=== PATIENT | female | born 1970 | race African-American/Black ===

== ENCOUNTER 2016-06-28 01:36 | Emergency (ER) | payer MEDICAID ==
[~2016-06-28] VITALS: Ht 157.5 cm; Wt 117.9 kg
[~2016-06-28 01:36] MED LIST: ALBUAER3 IN; ALLO100T PO; CARI-277 PO; CLOB0.05 TD; FLUT250M2 INH; FURO20TA3 PO; GABA300C8 PO; IBUP200C3 PO; INSUINJ IJ; INSUINJ37 SUBCUT; LOSA50TA6 PO; METF-316 PO; NOR10T PO; SIMV-13 PO; TEMA15CA91 GT; TIZA4CAP5 PO; TRIA25CA; [UNRECOGNIZED DRUG - CODE] SUBCUT
[2016-06-28 02:05] LABS: Basophils # (auto) 0.1 uL; Basophils % (auto) 0.9 % (0.0-2.0); Eosinophils # (auto) 0.3 uL; Eosinophils % (auto) 2.8 % (0.0-7.0); Hematocrit 45.3 % (36.0-46.0); Hemoglobin 14.6 g/dL (12.2-16.2); Lymphocytes # (auto) 3.5 uL; Mean Corpuscular Hemoglobin 29.6 pg (28.0-32.0); Mean Corpuscular Hgb Conc. 32.3 g/dL (32.0-36.0); Mean Corpuscular Volume 91.5 fL (80.0-100.0); Mean Platelet Volume 8.1 fL (7.4-10.4); Monocytes # (auto) 0.7 uL; Monocytes % (auto) 6.6 % (0.0-12.0); Neutrophils # (auto) 5.8 uL; Neutrophils % (auto) 55.7 % (37.0-80.0); Platelet Count (auto) 279 10^3/uL (140-450); Red Cell Distribution Width 12.6 % (11.6-16.0); White Blood Cell 10.4 10^3/uL (4.4-10.8)
[2016-06-28 02:37] LABS: Albumin 3.5 g/dL (3.4-5.0); BUN/Creatinine Ratio 14.5; Calcium 8.6 mg/dL (8.5-10.1); Potassium 3.7 mmol/L (3.5-5.1)
[2016-06-28 02:39] LABS: Bilirubin, Total 0.2 mg/dL (0.2-1.0); Total Protein 8.4 g/dL (6.4-8.2)
[2016-06-28] MEDS ORDERED: KETOROLAC TROMETH 30 MG/ML 1ML VIAL IV ONE (04:00)
[2016-06-28] MEDS ORDERED: NALBUPHINE HCL 10 MG/1ml INJECTION IV ONE (07:15)
[2016-06-28] MEDS ORDERED: METOCLOPRAMIDE HCL 5MG/ml INJ 2ml VIAL IV ONE (07:15)
[2016-06-28 11:11] VITALS: BP 110/57
== END 2016-06-28 11:11 | disposition home or self-care (01) ==
LOC: ER 01:39
DX: R51 Headache (principal); I10 Essential (primary) hypertension; J45.909 Unspecified asthma, uncomplicated; F20.9 Schizophrenia, unspecified; F17.210 Nicotine dependence, cigarettes, uncomplicated; M10.9 Gout, unspecified; E11.65 Type 2 diabetes mellitus with hyperglycemia; E11.21 Type 2 diabetes mellitus with diabetic nephropathy; E66.01 Morbid (severe) obesity due to excess calories; Z68.42 Body mass index [BMI] 45.0-49.9, adult
CPT/HCPCS: 36415; 70450; 80053; 83735; 84443; 85025; 96374; 96375; 99285; J1885; J2300; J2765

== ENCOUNTER 2016-07-14 10:26 | Emergency (ER) | payer MEDICAID ==
[~2016-07-14] VITALS: Ht 160 cm; Wt 121.6 kg
[2016-07-14 11:14] LABS: Basophils # (auto) 0 uL; Basophils % (auto) 0.3 % (0.0-2.0); Eosinophils # (auto) 0.2 uL; Eosinophils % (auto) 2.5 % (0.0-7.0); Hematocrit 42.6 % (36.0-46.0); Hemoglobin 14.2 g/dL (12.2-16.2); Lymphocytes # (auto) 2.1 uL; Lymphocytes % (auto) 26.7 % (10.0-50.0); Mean Corpuscular Hgb Conc. 33.3 g/dL (32.0-36.0); Mean Corpuscular Volume 90.1 fL (80.0-100.0); Mean Platelet Volume 7.8 fL (7.4-10.4); Monocytes # (auto) 0.6 uL; Monocytes % (auto) 7.6 % (0.0-12.0); Neutrophils # (auto) 4.9 uL; Neutrophils % (auto) 62.9 % (37.0-80.0); Platelet Count (auto) 295 10^3/uL (140-450); Red Cell Distribution Width 13.3 % (11.6-16.0); White Blood Cell 7.9 10^3/uL (4.4-10.8)
[2016-07-14 11:57] LABS: Albumin 3.7 g/dL (3.4-5.0); BUN/Creatinine Ratio 16.4; Bilirubin, Total 0.3 mg/dL (0.2-1.0); Calcium 8.9 mg/dL (8.5-10.1); Potassium 3.8 mmol/L (3.5-5.1); Total Protein 8.3 g/dL (6.4-8.2)
[2016-07-14] MEDS ORDERED: SODIUM CHLORIDE 0.9% 1,000 ML IV ONE (15:39)
[2016-07-14] MEDS ORDERED: InsuLIN REG 1unit/0.01ml Soln (100units/ml) IV ONE ×2 (15:45→16:15)
[2016-07-14] MEDS ORDERED: MECLIZINE HCL 25 MG TAB PO ONE (16:00)
[2016-07-14] MEDS ORDERED: NALBUPHINE HCL 10 MG/1ml INJECTION ONE (16:57)
[2016-07-14] MEDS ORDERED: ONDANSETRON HCL 4 MG/2 ML VIAL ONE (16:57)
[2016-07-14] MEDS ORDERED: NALBUPHINE HCL 10 MG/1ml INJECTION IV ONE (17:00)
[2016-07-14] MEDS ORDERED: ONDANSETRON HCL 4 MG/2 ML VIAL IV ONE (17:00)
[2016-07-14 20:02] VITALS: BP 122/77
== END 2016-07-14 20:25 | disposition home or self-care (01) ==
LOC: ER 10:26
DX: R51 Headache (principal); F41.9 Anxiety disorder, unspecified; J45.909 Unspecified asthma, uncomplicated; F32.9 Major depressive disorder, single episode, unspecified; E11.9 Type 2 diabetes mellitus without complications; M10.9 Gout, unspecified; I10 Essential (primary) hypertension; F17.210 Nicotine dependence, cigarettes, uncomplicated; F20.9 Schizophrenia, unspecified; Z98.890 Other specified postprocedural states; Z98.51 Tubal ligation status
CPT/HCPCS: 36415; 70450; 80053; 82962; 83735; 84484; 85025; 93005; 96361; 96374; 96375; 99285; J1815; J2300; J2405; J8597

== ENCOUNTER 2016-07-28 23:24 | Emergency (ER) | payer MEDICAID ==
[~2016-07-28] VITALS: Ht 157.5 cm; Wt 121.6 kg
[2016-07-29 00:44] LABS: Basophils # (auto) 0 uL; Basophils % (auto) 0.3 % (0.0-2.0); Eosinophils # (auto) 0.1 uL; Eosinophils % (auto) 1.9 % (0.0-7.0); Hematocrit 40.2 % (36.0-46.0); Hemoglobin 12.9 g/dL (12.2-16.2); Lymphocytes # (auto) 2.5 uL; Lymphocytes % (auto) 33.6 % (10.0-50.0); Mean Corpuscular Hemoglobin 29.1 pg (28.0-32.0); Mean Corpuscular Volume 91.1 fL (80.0-100.0); Mean Platelet Volume 8.4 fL (7.4-10.4); Monocytes # (auto) 0.5 uL; Monocytes % (auto) 7.1 % (0.0-12.0); Neutrophils # (auto) 4.2 uL; Neutrophils % (auto) 57.1 % (37.0-80.0); Platelet Count (auto) 284 10^3/uL (140-450); Red Cell Distribution Width 13.4 % (11.6-16.0); White Blood Cell 7.4 10^3/uL (4.4-10.8)
[2016-07-29 00:56] LABS: Urine Bilirubin Negative (Negative); Urine Blood Negative /uL (Negative); Urine Color Colorless (Yellow); Urine Ketone Negative (Negative); Urine Mucus FEW (None Seen); Urine Nitrite Negative (Negative); Urine RBC <1 /hpf (0 - 4); Urine Squamous Epithelial Cell FEW /hpf (<5); Urine Urobilinogen Normal (Negative); Urine pH 6.5 (5.0-8.0)
[2016-07-29 01:02] LABS: Urine Glucose 4+ mg/dL (Normal)
[2016-07-29 01:13] LABS: Albumin 3.3 g/dL (3.4-5.0); Calcium 8.9 mg/dL (8.5-10.1); Potassium 4.2 mmol/L (3.5-5.1)
[2016-07-29 01:17] LABS: BUN/Creatinine Ratio 10.4; Bilirubin, Total 0.2 mg/dL (0.2-1.0)
[2016-07-29] MEDS ORDERED: SODIUM CHLORIDE 0.9% 1,000 ML IV ONE ×2 (02:30→03:45)
[2016-07-29] MEDS ORDERED: InsuLIN REG 1unit/0.01ml Soln (100units/ml) IV ONE (02:30)
[2016-07-29 03:11] LABS: B-Type Natriuretic Peptide 7.99 pg/mL (0-100)
[2016-07-29 03:13] LABS: Temperature: 22.7 C (20.0-25.0)
[2016-07-29] MEDS ORDERED: LORazepam 2MG/ML-1ML VIAL IV ONE (03:30)
[2016-07-29] MEDS ORDERED: HYDROcodone-ACET 10/325MG TAB PO ONE (04:00)
[2016-07-29 04:22] VITALS: BP 139/82
== END 2016-07-29 05:18 | disposition home or self-care (01) ==
LOC: ER 23:28
DX: M54.12 Radiculopathy, cervical region (principal); R51 Headache; J45.909 Unspecified asthma, uncomplicated; I10 Essential (primary) hypertension; M10.9 Gout, unspecified; F17.210 Nicotine dependence, cigarettes, uncomplicated; E11.65 Type 2 diabetes mellitus with hyperglycemia; E11.40 Type 2 diabetes mellitus with diabetic neuropathy, unspecified
CPT/HCPCS: 36415; 70450; 72125; 80053; 81001; 82962; 83880; 85025; 96361; 96374; 99285; G0434; J7030

== ENCOUNTER 2016-07-31 17:55 | Inpatient (IN) | payer MEDICAID ==
[~2016-07-31] VITALS: Ht 160 cm; Wt 118.7 kg
[2016-07-31 19:11] LABS: Basophils # (auto) 0 uL; Basophils % (auto) 0.3 % (0.0-2.0); Eosinophils # (auto) 0.2 uL; Eosinophils % (auto) 1.8 % (0.0-7.0); Hematocrit 43.2 % (36.0-46.0); Lymphocytes # (auto) 2.2 uL; Lymphocytes % (auto) 26.2 % (10.0-50.0); Mean Corpuscular Hemoglobin 29.7 pg (28.0-32.0); Mean Corpuscular Hgb Conc. 32.4 g/dL (32.0-36.0); Mean Corpuscular Volume 91.5 fL (80.0-100.0); Mean Platelet Volume 8.4 fL (7.4-10.4); Monocytes # (auto) 0.6 uL; Monocytes % (auto) 6.9 % (0.0-12.0); Neutrophils # (auto) 5.6 uL; Neutrophils % (auto) 64.8 % (37.0-80.0); Platelet Count (auto) 293 10^3/uL (140-450); Red Cell Distribution Width 13.3 % (11.6-16.0); White Blood Cell 8.6 10^3/uL (4.4-10.8)
[2016-07-31 19:53] LABS: Albumin 3.5 g/dL (3.4-5.0); BUN/Creatinine Ratio 12.9; Bilirubin, Total 0.3 mg/dL (0.2-1.0); Calcium 9.2 mg/dL (8.5-10.1); Magnesium 2.1 mg/dL (1.6-2.6); Potassium 4.3 mmol/L (3.5-5.1); Total Protein 8.3 g/dL (6.4-8.2)
[2016-07-31] MEDS ORDERED: SODIUM CHLORIDE 0.9% 250 ML IV ONE (20:19)
[2016-07-31] MEDS ORDERED: SODIUM CHLORIDE 0.9% 1,000 ML IV ONE (20:19)
[2016-07-31] MEDS ORDERED: InsuLIN REG 1unit/0.01ml Soln (100units/ml) IV ONE (20:30)
[2016-07-31] MEDS ORDERED: KETOROLAC TROMETH 30 MG/ML 1ML VIAL IV ONE ×2 (22:00)
[2016-07-31] MEDS: SODIUM CHLORIDE 0.9% 1,000 ML IV SCH (23:26)
[2016-07-31] MEDS ORDERED: ACETAMINOPHEN 325 MG TAB PO PRN (23:30)
[2016-07-31] MEDS ORDERED: TEMAZEPAM 15 MG CAP PO PRN (23:30)
[2016-07-31] MEDS ORDERED: DEXTROSE (50%) 50ML SYRG IV PRN (23:30)
[2016-07-31] MEDS ORDERED: ALBUTEROL SULF 2.5 MG/0.5ML(0.5%) NEB SOLN NEB PRN (23:30)
[2016-07-31] MEDS ORDERED: TRIAMTERENE/HCTZ 75/50MG TABLET PO ONE (23:30)
[2016-07-31] MEDS ORDERED: CARISOPRODOL 350 MG TAB PO PRN (23:30)
[2016-07-31] MEDS ORDERED: HYDROcodone-ACET 5/325MG TAB PO PRN (23:30)
[2016-08-01] VITALS (10 sets, daily range): BP systolic 121–137; BP diastolic 67–78
[2016-08-01] MEDS: ACCU-CHEK COMFORT CURVE STRIP VI SCH ×6 (01:26→20:25)
[2016-08-01] MEDS: InsuLIN REG 1unit/0.01ml Soln (100units/ml) SC SCH ×6 (01:31→17:59)
[2016-08-01 06:06] LABS: Basophils # (auto) 0 uL; Basophils % (auto) 0.4 % (0.0-2.0); Eosinophils # (auto) 0.2 uL; Eosinophils % (auto) 2.2 % (0.0-7.0); Hematocrit 40.8 % (36.0-46.0); Hemoglobin 13.1 g/dL (12.2-16.2); Lymphocytes # (auto) 2.9 uL; Lymphocytes % (auto) 37.1 % (10.0-50.0); Mean Corpuscular Hemoglobin 29.6 pg (28.0-32.0); Mean Corpuscular Hgb Conc. 32.2 g/dL (32.0-36.0); Mean Corpuscular Volume 92.1 fL (80.0-100.0); Mean Platelet Volume 8.4 fL (7.4-10.4); Monocytes # (auto) 0.6 uL; Monocytes % (auto) 7.3 % (0.0-12.0); Neutrophils # (auto) 4.1 uL; Platelet Count (auto) 272 10^3/uL (140-450); Red Cell Distribution Width 13.4 % (11.6-16.0); White Blood Cell 7.7 10^3/uL (4.4-10.8)
[2016-08-01 06:21] LABS: Potassium 3.6 mmol/L (3.5-5.1)
[2016-08-01 06:27] LABS: Albumin 2.9 g/dL (3.4-5.0); BUN/Creatinine Ratio 16.2; Calcium 8.6 mg/dL (8.5-10.1)
[2016-08-01 06:29] LABS: Bilirubin, Total 0.2 mg/dL (0.2-1.0); Total Protein 7.3 g/dL (6.4-8.2)
[2016-08-01] MEDS ORDERED: HYDROcodone-ACET 10/325MG TAB PO PRN (08:30)
[2016-08-01] MEDS: ENOXAPARIN SOD 40 MG/0.4 ML SYRINGE SC SCH (09:50)
[2016-08-01] MEDS: FAMOTIDINE 20 MG TAB PO SCH ×2 (09:51→22:17)
[2016-08-01] MEDS: FUROSEMIDE 20 MG TAB PO SCH (09:51)
[2016-08-01] MEDS: ALLOPURINOL 100 MG TAB PO SCH (09:51)
[2016-08-01] MEDS: SODIUM CHLORIDE 0.9% 1,000 ML IV SCH (16:37)
[2016-08-01] MEDS: MORPHINE SULFATE 4 MG/ML SYRG IV PRN (17:44)
[2016-08-01] MEDS: INSULIN DETEMIR(LEVEMIR) 1unit/0.01ml Soln (100units/ml) SC SCH (22:12)
[2016-08-01 22:13] LABS: Urine Bilirubin Negative (Negative); Urine Color Yellow (Yellow); Urine Ketone Negative (Negative); Urine Nitrite Negative (Negative); Urine RBC <1 /hpf (0 - 4); Urine Squamous Epithelial Cell FEW /hpf (<5); Urine Urobilinogen Normal (Negative)
[2016-08-01 22:14] LABS: Urine Blood 2+ /uL (Negative); Urine Glucose 4+ mg/dL (Normal)
[2016-08-01] MEDS: MORPHINE SULF 30 mg ER tab PO SCH (22:18)
[2016-08-02] VITALS (7 sets, daily range): BP systolic 107–125; BP diastolic 60–75
[2016-08-02] MEDS: ACCU-CHEK COMFORT CURVE STRIP VI SCH ×6 (00:03→22:05)
[2016-08-02] MEDS: MORPHINE SULFATE 4 MG/ML SYRG IV PRN ×3 (02:05→21:01)
[2016-08-02] MEDS: MORPHINE SULF 30 mg ER tab PO SCH ×3 (06:30→22:00)
[2016-08-02] MEDS: InsuLIN REG 1unit/0.01ml Soln (100units/ml) SC SCH ×3 (06:30→17:00)
[2016-08-02] MEDS: INSULIN DETEMIR(LEVEMIR) 1unit/0.01ml Soln (100units/ml) SC SCH ×2 (06:43→22:10)
[2016-08-02] MEDS: FAMOTIDINE 20 MG TAB PO SCH ×2 (08:34→22:10)
[2016-08-02] MEDS: ALLOPURINOL 100 MG TAB PO SCH (08:34)
[2016-08-02] MEDS: ENOXAPARIN SOD 40 MG/0.4 ML SYRINGE SC SCH (08:35)
[2016-08-02] MEDS: SODIUM CHLORIDE 0.9% 1,000 ML IV SCH ×2 (08:40→21:03)
[2016-08-02] MEDS: FUROSEMIDE 20 MG TAB PO SCH (08:41)
[2016-08-02] MEDS: ONDANSETRON HCL 4 MG/2 ML VIAL IV PRN (10:18)
[2016-08-02] MEDS ORDERED: DEXTROSE (50%) 50ML SYRG IV PRN (11:00)
[2016-08-02] MEDS ORDERED: InsuLIN REG 1unit/0.01ml Soln (100units/ml) SC SCH (11:30)
[2016-08-03] VITALS (7 sets, daily range): BP systolic 114–162; BP diastolic 45–90
[2016-08-03] MEDS: MORPHINE SULFATE 4 MG/ML SYRG IV PRN ×4 (04:33→22:51)
[2016-08-03] MEDS: MORPHINE SULF 30 mg ER tab PO SCH ×3 (05:33→22:00)
[2016-08-03] MEDS: INSULIN DETEMIR(LEVEMIR) 1unit/0.01ml Soln (100units/ml) SC SCH ×2 (06:35→22:00)
[2016-08-03] MEDS: InsuLIN REG 1unit/0.01ml Soln (100units/ml) SC SCH ×5 (06:40→23:03)
[2016-08-03] MEDS: ACCU-CHEK COMFORT CURVE STRIP VI SCH ×5 (06:44→22:18)
[2016-08-03] MEDS: ONDANSETRON HCL 4 MG/2 ML VIAL IV PRN ×2 (10:24→16:41)
[2016-08-03] MEDS: FAMOTIDINE 20 MG TAB PO SCH ×2 (10:25→21:54)
[2016-08-03] MEDS: FUROSEMIDE 20 MG TAB PO SCH (10:26)
[2016-08-03] MEDS: ALLOPURINOL 100 MG TAB PO SCH (10:26)
[2016-08-03] MEDS: ENOXAPARIN SOD 40 MG/0.4 ML SYRINGE SC SCH (10:26)
[2016-08-03] MEDS ORDERED: DEXTROSE (50%) 50ML SYRG IV PRN (11:30)
[2016-08-03] MEDS: LORazepam 2MG/ML-1ML VIAL IV PRN ×3 (12:31→12:33)
[2016-08-03] MEDS: ASPirin-EC 81 mg tab PO SCH (16:38)
[2016-08-03] MEDS: SODIUM CHLORIDE 0.9% 1,000 ML IV SCH (18:10)
[2016-08-03] MEDS: ATORVASTATIN 20 MG TAB PO SCH (21:54)
[2016-08-04] VITALS (8 sets, daily range): BP systolic 113–152; BP diastolic 59–82
[2016-08-04] MEDS: MORPHINE SULFATE 4 MG/ML SYRG IV PRN ×3 (05:23→17:58)
[2016-08-04] MEDS: MORPHINE SULF 30 mg ER tab PO SCH ×3 (06:00→22:00)
[2016-08-04] MEDS: ACCU-CHEK COMFORT CURVE STRIP VI SCH ×4 (06:08→22:48)
[2016-08-04] MEDS: InsuLIN REG 1unit/0.01ml Soln (100units/ml) SC SCH ×4 (06:21→22:49)
[2016-08-04] MEDS: INSULIN DETEMIR(LEVEMIR) 1unit/0.01ml Soln (100units/ml) SC SCH ×2 (06:21→22:48)
[2016-08-04 06:32] LABS: Cholesterol 149 mg/dL (<200); HDL Cholesterol 39 mg/dL (40-59); LDL Cholesterol 93 mg/dL (<100); Triglycerides 180 mg/dL (<150)
[2016-08-04] MEDS: ENOXAPARIN SOD 40 MG/0.4 ML SYRINGE SC SCH (09:19)
[2016-08-04] MEDS: FAMOTIDINE 20 MG TAB PO SCH ×2 (09:20→22:47)
[2016-08-04] MEDS: FUROSEMIDE 20 MG TAB PO SCH (09:20)
[2016-08-04] MEDS: ALLOPURINOL 100 MG TAB PO SCH (09:20)
[2016-08-04] MEDS: ASPirin-EC 81 mg tab PO SCH (09:20)
[2016-08-04] MEDS: SODIUM CHLORIDE 0.9% 1,000 ML IV SCH (10:46)
[2016-08-04] MEDS: ATORVASTATIN 20 MG TAB PO SCH (22:47)
[2016-08-05] MEDS: MORPHINE SULFATE 4 MG/ML SYRG IV PRN ×3 (00:23→12:52)
[2016-08-05] MEDS: SODIUM CHLORIDE 0.9% 1,000 ML IV SCH (03:26)
[2016-08-05 05:00] VITALS: BP 142/71
[2016-08-05] MEDS: MORPHINE SULF 30 mg ER tab PO SCH (06:00)
[2016-08-05] MEDS: INSULIN DETEMIR(LEVEMIR) 1unit/0.01ml Soln (100units/ml) SC SCH (07:00)
[2016-08-05] MEDS: InsuLIN REG 1unit/0.01ml Soln (100units/ml) SC SCH ×2 (07:00→12:15)
[2016-08-05] MEDS: ACCU-CHEK COMFORT CURVE STRIP VI SCH ×2 (07:00→11:30)
[2016-08-05 07:45] VITALS: BP 130/76
[2016-08-05 09:00] VITALS: BP 130/76
[2016-08-05] MEDS: ENOXAPARIN SOD 40 MG/0.4 ML SYRINGE SC SCH (11:12)
[2016-08-05] MEDS: ASPirin-EC 81 mg tab PO SCH (11:12)
[2016-08-05] MEDS: FAMOTIDINE 20 MG TAB PO SCH (11:12)
[2016-08-05] MEDS: ALLOPURINOL 100 MG TAB PO SCH (11:12)
[2016-08-05] MEDS: FUROSEMIDE 20 MG TAB PO SCH (11:21)
[2016-08-05 13:00] VITALS: BP 161/94
[2016-08-05 14:14] VITALS: BP 141/79
[2016-08-07 13:21] LABS: Hepatitis B Surface Antibody Negative
== END 2016-08-05 15:40 | disposition home or self-care (01) | DRG 45 ==
LOC: ER 17:58 → OVERFLOW 17:59 → CENTRAL 23:55
PROVIDERS: ADMIT Internal Medicine; ATTEND Internal Medicine Pulmonary Disease
DX: I63.9 Cerebral infarction, unspecified (principal); I11.0 Hypertensive heart disease with heart failure; E10.40 Type 1 diabetes mellitus with diabetic neuropathy, unspecified; E86.0 Dehydration; E10.65 Type 1 diabetes mellitus with hyperglycemia; E66.01 Morbid (severe) obesity due to excess calories; F20.9 Schizophrenia, unspecified; M10.9 Gout, unspecified; Z79.4 Long term (current) use of insulin; M13.0 Polyarthritis, unspecified; E78.5 Hyperlipidemia, unspecified; G89.29 Other chronic pain; J45.909 Unspecified asthma, uncomplicated; L40.50 Arthropathic psoriasis, unspecified; F17.210 Nicotine dependence, cigarettes, uncomplicated; Z80.7 Family history of other malignant neoplasms of lymphoid, hematopoietic and related tissues; Z82.49 Family history of ischemic heart disease and other diseases of the circulatory system; Z83.3 Family history of diabetes mellitus; Z86.73 Personal history of transient ischemic attack (TIA), and cerebral infarction without residual deficits; Z88.8 Allergy status to other drugs, medicaments and biological substances; Z88.1 Allergy status to other antibiotic agents; Z91.041 Radiographic dye allergy status; Z91.013 Allergy to seafood; F32.9 Major depressive disorder, single episode, unspecified; F41.9 Anxiety disorder, unspecified; Z98.51 Tubal ligation status; Z68.42 Body mass index [BMI] 45.0-49.9, adult; I45.10 Unspecified right bundle-branch block; Z80.9 Family history of malignant neoplasm, unspecified
CPT/HCPCS: 36415; 70450; 70551; 71010; 80053; 80061; 80074; 81001; 82962; 83036; 83735; 84484; 84550; 84702; 85025; 85652; 86141; 86200; 86431; 86704; 86706; 86708; 86803; 87081; 87340; 93005; 93886; 96361; 96374; 96375; 97001; J1815; J1885; J2405

== ENCOUNTER 2016-08-22 18:20 | Inpatient (IN) | payer MEDICAID ==
[~2016-08-22] VITALS: Ht 157.5 cm; Wt 117.9 kg
[2016-08-22 19:12] LABS: Basophils # (auto) 0 uL; Basophils % (auto) 0.2 % (0.0-2.0); Eosinophils # (auto) 0.2 uL; Eosinophils % (auto) 2.3 % (0.0-7.0); Hematocrit 41.2 % (36.0-46.0); Hemoglobin 13.7 g/dL (12.2-16.2); Lymphocytes # (auto) 2.3 uL; Lymphocytes % (auto) 25.5 % (10.0-50.0); Mean Corpuscular Hgb Conc. 33.3 g/dL (32.0-36.0); Mean Corpuscular Volume 90.2 fL (80.0-100.0); Mean Platelet Volume 8.6 fL (7.4-10.4); Monocytes # (auto) 0.6 uL; Monocytes % (auto) 6.8 % (0.0-12.0); Neutrophils # (auto) 5.9 uL; Neutrophils % (auto) 65.2 % (37.0-80.0); Platelet Count (auto) 290 10^3/uL (140-450); Red Cell Distribution Width 13.1 % (11.6-16.0); White Blood Cell 9.1 10^3/uL (4.4-10.8)
[2016-08-22 19:23] LABS: INR 1.04 (0.9-1.15); Partial Thromboplastin Time 27.3 sec (22.64-33.71); Prothrombin Time 10.7 sec (9.37-12.3)
[2016-08-22 19:26] LABS: Albumin 3.3 g/dL (3.4-5.0); Anion Gap 13 (5-15); Blood Urea Nitrogen 16 mg/dL (7-18); Calcium 8.7 mg/dL (8.5-10.1); Carbon Dioxide 23 mmol/L (21-32); Chloride 100 mmol/L (98-107); Potassium 4.5 mmol/L (3.5-5.1); Sodium 136 mmol/L (136-145)
[2016-08-22 19:29] LABS: Alkaline Phosphatase 129 U/L (45-117); Aspartate Aminotransferase 11 U/L (15-37); BUN/Creatinine Ratio 11.2; Bilirubin, Total < 0.1 mg/dL (0.2-1.0); GFR African American 51 mL/min; GFR Non-African American 42 mL/min; Total Protein 7.6 g/dL (6.4-8.2)
[2016-08-22 19:42] LABS: Glucose 584 mg/dL (74-106)
[2016-08-22] MEDS ORDERED: InsuLIN REG 1unit/0.01ml Soln (100units/ml) IV ONE (20:15)
[2016-08-22] MEDS ORDERED: SODIUM CHLORIDE 0.9% 2,000 ML IV ONE (20:15)
[2016-08-22] MEDS ORDERED: LORazepam 2MG/ML-1ML VIAL IV PRN (22:15)
[2016-08-22] MEDS ORDERED: ASPirin-EC 81 mg tab PO ONE (22:30)
[2016-08-22 22:37] LABS: Urine Bilirubin Negative (Negative); Urine Blood Negative /uL (Negative); Urine Color Yellow (Yellow); Urine Ketone Negative (Negative); Urine Nitrite Negative (Negative); Urine RBC 1 /hpf (0 - 4); Urine Squamous Epithelial Cell FEW /hpf (<5); Urine Urobilinogen Normal (Negative); Urine pH 6.5 (5.0-8.0)
[2016-08-22] MEDS ORDERED: LORazepam 2MG/ML-1ML VIAL IV ONE (22:45)
[2016-08-22 22:50] LABS: Urine Glucose 4+ mg/dL (Normal)
[2016-08-23] MEDS ORDERED: SODIUM CHLORIDE 0.9% 1,000 ML IV SCH (08:46)
[2016-08-23] MEDS ORDERED: TEMAZEPAM 15 MG CAP PO PRN (09:00)
[2016-08-23] MEDS ORDERED: DEXTROSE (50%) 50ML SYRG IV PRN (09:00)
[2016-08-23] MEDS ORDERED: NITROGLYCERIN 0.4 MG SL TAB SL PRN (09:00)
[2016-08-23] MEDS ORDERED: MORPHINE SULF INJ 2 MG/ML SYRINGE 1ML IV PRN ×2 (09:00)
[2016-08-23] MEDS ORDERED: LORazepam 0.5 MG TAB PO PRN (09:00)
[2016-08-23] MEDS ORDERED: LACTULOSE 20Gm/30ML SOLN PO PRN (09:00)
[2016-08-23] MEDS ORDERED: HYDROcodone-ACET 5/325MG TAB PO PRN (09:00)
[2016-08-23] MEDS ORDERED: ACETAMINOPHEN 500 MG TAB PO PRN (09:00)
[2016-08-23] MEDS ORDERED: PATIENTS OWN MEDICATION (Albuterol Sulfate (Ventolin Mdi) 90 MCG) IN PRN ×2 (09:00)
[2016-08-23] MEDS ORDERED: PROMETHAZINE HCL 25 MG/ML 1ML IV PRN (09:00)
[2016-08-23] MEDS ORDERED: CARISOPRODOL 350 MG TAB PO PRN (09:00)
[2016-08-23] MEDS ORDERED: ATORVASTATIN 20 MG TAB PO SCH ×2 (10:00→22:00)
[2016-08-23] MEDS ORDERED: ALLOPURINOL 100 MG TAB PO SCH (10:00)
[2016-08-23] MEDS ORDERED: PATIENTS OWN MEDICATION (Simvastatin 40 MG) PO SCH ×2 (10:00)
[2016-08-23] MEDS ORDERED: ENOXAPARIN SOD 40 MG/0.4 ML SYRINGE SC SCH (10:00)
[2016-08-23] MEDS ORDERED: LOSARTAN POTASSIUM 50 MG TAB PO SCH (10:00)
[2016-08-23] MEDS ORDERED: ASPirin-EC 81 mg tab PO SCH (10:00)
[2016-08-23] MEDS ORDERED: PATIENTS OWN MEDICATION (Fluticasone-Salmeterol (Advair Diskus 250/50) 1 PUFF) INH SCH ×2 (10:00)
[2016-08-23] MEDS ORDERED: ASPirin 81 mg TAB PO SCH (10:00)
[2016-08-23] MEDS ORDERED: BETAMETHASONE DIPROP0.05% TOPICAL CREAM 15GM TOP SCH (11:00)
[2016-08-23] MEDS ORDERED: BUDESONIDE (INHALATION) 0.5 MG/2 ML NEB NEB SCH (12:00)
[2016-08-23] MEDS ORDERED: ALBUTEROL SULF 2.5 MG/0.5ML(0.5%) NEB SOLN NEB SCH (12:00)
[2016-08-23] MEDS: ACCU-CHEK COMFORT CURVE STRIP VI SCH ×2 (12:07→16:11)
[2016-08-23] MEDS ORDERED: InsuLIN REG 1unit/0.01ml Soln (100units/ml) IV ONE (12:15)
[2016-08-23] MEDS: InsuLIN REG 1unit/0.01ml Soln (100units/ml) SC SCH ×2 (12:16→16:00)
[2016-08-23] MEDS ORDERED: GABAPENTIN 300 MG CAP PO SCH (14:00)
[2016-08-23 15:08] VITALS: BP 126/76
== END 2016-08-23 19:30 | disposition left against medical advice (07) | DRG 45 ==
LOC: ER 18:25 → TELE 18:26 → WEST WING 08-23 16:00 → TELE-WESTW 08-23 18:18
PROVIDERS: ADMIT Internal Medicine; ATTEND Internal Medicine
DX: I63.9 Cerebral infarction, unspecified (principal); E10.65 Type 1 diabetes mellitus with hyperglycemia; I10 Essential (primary) hypertension; E66.01 Morbid (severe) obesity due to excess calories; F17.210 Nicotine dependence, cigarettes, uncomplicated; F20.9 Schizophrenia, unspecified; J45.909 Unspecified asthma, uncomplicated; M10.9 Gout, unspecified; F32.9 Major depressive disorder, single episode, unspecified; F41.9 Anxiety disorder, unspecified; I45.10 Unspecified right bundle-branch block; L40.9 Psoriasis, unspecified; Z98.51 Tubal ligation status; Z88.1 Allergy status to other antibiotic agents; Z91.041 Radiographic dye allergy status; Z79.82 Long term (current) use of aspirin; Z80.7 Family history of other malignant neoplasms of lymphoid, hematopoietic and related tissues; Z82.49 Family history of ischemic heart disease and other diseases of the circulatory system; Z83.3 Family history of diabetes mellitus; Z91.013 Allergy to seafood; Z79.899 Other long term (current) drug therapy
CPT/HCPCS: 36415; 36600; 70450; 70551; 71010; 80053; 81001; 82010; 82550; 82607; 82746; 82805; 82962; 83036; 84443; 85025; 85610; 85652; 85730; 93005; 93306; 94640; 96361; 96374; 96375; J1815

== ENCOUNTER 2016-08-27 06:48 | Emergency (ER) | payer MEDICAID ==
[~2016-08-27] VITALS: Ht 167.6 cm; Wt 117.9 kg
[2016-08-27 07:48] LABS: Basophils # (auto) 0 uL; Basophils % (auto) 0.2 % (0.0-2.0); Eosinophils # (auto) 0.3 uL; Eosinophils % (auto) 2.8 % (0.0-7.0); Hematocrit 40.9 % (36.0-46.0); Hemoglobin 13.8 g/dL (12.2-16.2); Lymphocytes # (auto) 2.4 uL; Lymphocytes % (auto) 21.8 % (10.0-50.0); Mean Corpuscular Hemoglobin 30.3 pg (28.0-32.0); Mean Corpuscular Hgb Conc. 33.8 g/dL (32.0-36.0); Mean Corpuscular Volume 89.7 fL (80.0-100.0); Mean Platelet Volume 8.7 fL (7.4-10.4); Monocytes # (auto) 0.7 uL; Monocytes % (auto) 6.7 % (0.0-12.0); Neutrophils # (auto) 7.6 uL; Neutrophils % (auto) 68.5 % (37.0-80.0); Platelet Count (auto) 276 10^3/uL (140-450); Red Cell Distribution Width 12.9 % (11.6-16.0); White Blood Cell 11.1 10^3/uL (4.4-10.8)
[2016-08-27 07:54] LABS: INR 1.02 (0.9-1.15); Partial Thromboplastin Time 27.2 sec (22.64-33.71); Prothrombin Time 10.5 sec (9.37-12.3)
[2016-08-27] MEDS ORDERED: SODIUM CHLORIDE 0.9% 1,000 ML IV ONE (08:01)
[2016-08-27] MEDS ORDERED: SODIUM CHLORIDE 0.9% 250 ML IV ONE (08:01)
[2016-08-27 08:02] LABS: Albumin 3.2 g/dL (3.4-5.0); BUN/Creatinine Ratio 14.2; Calcium 8.7 mg/dL (8.5-10.1); Potassium 4.3 mmol/L (3.5-5.1)
[2016-08-27 08:06] LABS: Bilirubin, Total 0.2 mg/dL (0.2-1.0); Total Protein 7.8 g/dL (6.4-8.2)
[2016-08-27 08:10] LABS: B-Type Natriuretic Peptide 14.61 pg/mL (0-100)
[2016-08-27] MEDS ORDERED: ONDANSETRON HCL 4 MG/2 ML VIAL IV ONE (08:15)
[2016-08-27] MEDS ORDERED: InsuLIN REG 1unit/0.01ml Soln (100units/ml) IV ONE (08:15)
[2016-08-27] MEDS ORDERED: MORPHINE SULFATE 4 MG/ML SYRG IV ONE (08:15)
[2016-08-27 10:23] VITALS: BP 156/84
[2016-08-27] MEDS ORDERED: cefTRIAXone 1GM/50ML D5W 50 ML IV ONE (11:00)
== END 2016-08-27 11:38 | disposition home or self-care (01) ==
LOC: ER 06:48 → EDBD 06:48 → ER 11:37
DX: E11.65 Type 2 diabetes mellitus with hyperglycemia (principal); J45.909 Unspecified asthma, uncomplicated; I10 Essential (primary) hypertension; F20.9 Schizophrenia, unspecified; Z86.73 Personal history of transient ischemic attack (TIA), and cerebral infarction without residual deficits; F17.210 Nicotine dependence, cigarettes, uncomplicated
CPT/HCPCS: 36415; 70450; 71010; 80053; 82962; 83880; 84484; 85025; 85610; 85730; 93005; 96361; 96374; 96375; 99285; J0696; J1815; J2270; J2405; J7030

== ENCOUNTER 2016-09-02 09:33 | Emergency (ER) | payer MEDICAID ==
[~2016-09-02] VITALS: Ht 157.5 cm; Wt 117.9 kg
[2016-09-02 10:43] VITALS: BP 155/79
[2016-09-02] MEDS ORDERED: traMADol HCL 50 MG TAB PO ONE (11:00)
[2016-09-02] MEDS ORDERED: cefTRIAXone SOD 1,000 MG VL IM ONE ×2 (11:00)
== END 2016-09-02 11:31 | disposition home or self-care (01) ==
LOC: ER 09:36
DX: N76.2 Acute vulvitis (principal); J45.909 Unspecified asthma, uncomplicated; I10 Essential (primary) hypertension; E11.9 Type 2 diabetes mellitus without complications; Z79.4 Long term (current) use of insulin; Z86.73 Personal history of transient ischemic attack (TIA), and cerebral infarction without residual deficits; F20.9 Schizophrenia, unspecified; Z79.899 Other long term (current) drug therapy; Z88.1 Allergy status to other antibiotic agents; Z88.8 Allergy status to other drugs, medicaments and biological substances; F17.210 Nicotine dependence, cigarettes, uncomplicated
CPT/HCPCS: 96372; 99284; J0696

== ENCOUNTER 2016-09-03 22:44 | Observation (INO) | payer MEDICAID ==
[~2016-09-03] VITALS: Ht 157.5 cm; Wt 117.9 kg
[2016-09-04 00:20] LABS: Basophils # (auto) 0.2 uL; Basophils % (auto) 1.3 % (0.0-2.0); Eosinophils # (auto) 0.2 uL; Eosinophils % (auto) 1.4 % (0.0-7.0); Hemoglobin 12.8 g/dL (12.2-16.2); Lymphocytes # (auto) 2.3 uL; Lymphocytes % (auto) 15.1 % (10.0-50.0); Mean Corpuscular Hemoglobin 29.7 pg (28.0-32.0); Mean Corpuscular Hgb Conc. 32.9 g/dL (32.0-36.0); Mean Corpuscular Volume 90.2 fL (80.0-100.0); Mean Platelet Volume 8.5 fL (7.4-10.4); Monocytes % (auto) 6.5 % (0.0-12.0); Neutrophils # (auto) 11.4 uL; Neutrophils % (auto) 75.7 % (37.0-80.0); Platelet Count (auto) 301 10^3/uL (140-450); Red Cell Distribution Width 11.9 % (11.6-16.0); SUSPECT VIEW TRANSMISSION; White Blood Cell 15.1 10^3/uL (4.4-10.8)
[2016-09-04 00:37] LABS: Calcium 8.9 mg/dL (8.5-10.1); Potassium 3.9 mmol/L (3.5-5.1)
[2016-09-04 00:40] LABS: BUN/Creatinine Ratio 10.3; Bilirubin, Total 0.3 mg/dL (0.2-1.0); Total Protein 8.5 g/dL (6.4-8.2)
[2016-09-04 00:42] LABS: Lactic Acid w/Reflex 2.8 mmol/L (0.4-2.0)
[2016-09-04 00:54] LABS: REFLEX LACTIC ACID YES OR NO YES
[2016-09-04 07:45] LABS: INR 1.1 (0.9-1.15); Partial Thromboplastin Time 23.7 sec (22.64-33.71); Prothrombin Time 11.3 sec (9.37-12.3)
[2016-09-04] MEDS ORDERED: cefTRIAXone 1GM/50ML D5W 50 ML IV ONE (09:00)
[2016-09-04] MEDS ORDERED: ONDANSETRON HCL 4 MG/2 ML VIAL IV ONE (09:00)
[2016-09-04] MEDS ORDERED: metroNIDAZOLE 500 MG TAB PO ONE (09:00)
[2016-09-04] MEDS ORDERED: MORPHINE SULFATE 4 MG/ML SYRG IV ONE (09:00)
[2016-09-04 10:05] LABS: Urine Bilirubin Negative (Negative); Urine Blood TRACE /uL (Negative); Urine Color Yellow (Yellow); Urine Nitrite Negative (Negative); Urine RBC 2 /hpf (0 - 4); Urine Squamous Epithelial Cell MOD /hpf (<5); Urine Urobilinogen Normal (Negative); Urine pH 5.5 (5.0-8.0)
[2016-09-04 10:06] LABS: Urine Glucose 4+ mg/dL (Normal); Urine Ketone 1+ (Negative)
[2016-09-04 10:32] VITALS: BP 128/76
[2016-09-04] MEDS ORDERED: InsuLIN REG 1unit/0.01ml Soln (100units/ml) IV ONE (11:00)
== END 2016-09-04 12:25 | disposition home or self-care (01) | DRG 420 ==
LOC: ER 22:47 → OVERFLOW 22:48 → UNDOADMOB 22:48 → OVERFLOW 09-04 07:29 → ER 09-04 12:25 → UNDODISOB 09-04 12:25
PROVIDERS: ADMIT Emergency Medicine; ATTEND Emergency Medicine
DX: E11.65 Type 2 diabetes mellitus with hyperglycemia (principal); I10 Essential (primary) hypertension; N76.4 Abscess of vulva; F20.9 Schizophrenia, unspecified; J45.909 Unspecified asthma, uncomplicated; F17.210 Nicotine dependence, cigarettes, uncomplicated; Z86.73 Personal history of transient ischemic attack (TIA), and cerebral infarction without residual deficits; Z98.890 Other specified postprocedural states; Z83.3 Family history of diabetes mellitus; Z80.7 Family history of other malignant neoplasms of lymphoid, hematopoietic and related tissues
CPT/HCPCS: 36415; 80053; 81001; 82010; 82962; 83605; 85025; 85610; 85730; 87040; 87070; 96365; 96375; 99285; G0378; J0696; J2270; J2405

== ENCOUNTER 2016-10-11 11:57 | Emergency (ER) | payer MEDICAID ==
[~2016-10-11] VITALS: Ht 160 cm; Wt 131.5 kg
[2016-10-11] MEDS ORDERED: SODIUM CHLORIDE 0.9% 1,000 ML IVB ONE (12:47)
[2016-10-11 13:56] LABS: Albumin 3.2 g/dL (3.4-5.0); BUN/Creatinine Ratio 14.3; Bilirubin, Total 0.2 mg/dL (0.2-1.0); Calcium 8.6 mg/dL (8.5-10.1); Magnesium 1.9 mg/dL (1.6-2.6); Potassium 4.3 mmol/L (3.5-5.1); Total Protein 7.8 g/dL (6.4-8.2)
[2016-10-11 13:59] LABS: Urine Bilirubin Negative (Negative); Urine Blood Negative /uL (Negative); Urine Color Yellow (Yellow); Urine Ketone TRACE (Negative); Urine Nitrite Negative (Negative); Urine RBC 1 /hpf (0 - 4); Urine Urobilinogen Normal (Negative); Urine pH 6.5 (5.0-8.0)
[2016-10-11 14:01] LABS: Urine Glucose 4+ mg/dL (Normal)
[2016-10-11 15:00] LABS: Basophils # (auto) 0 uL; Basophils % (auto) 0.3 % (0.0-2.0); Eosinophils # (auto) 0.2 uL; Eosinophils % (auto) 2.3 % (0.0-7.0); Hematocrit 43.2 % (36.0-46.0); Hemoglobin 14.3 g/dL (12.2-16.2); Lymphocytes # (auto) 2.6 uL; Lymphocytes % (auto) 33.1 % (10.0-50.0); Mean Corpuscular Hemoglobin 29.7 pg (28.0-32.0); Mean Corpuscular Hgb Conc. 33.2 g/dL (32.0-36.0); Mean Corpuscular Volume 89.4 fL (80.0-100.0); Mean Platelet Volume 8.7 fL (7.4-10.4); Monocytes # (auto) 0.4 uL; Monocytes % (auto) 5.6 % (0.0-12.0); Neutrophils # (auto) 4.6 uL; Neutrophils % (auto) 58.7 % (37.0-80.0); Platelet Count (auto) 252 10^3/uL (140-450); Red Cell Distribution Width 14.1 % (11.6-16.0); SUSPECT VIEW TRANSMISSION; White Blood Cell 7.9 10^3/uL (4.4-10.8)
[2016-10-11 15:23] LABS: Acetaminophen < 2.0 ug/mL (10-30)
[2016-10-11] MEDS ORDERED: InsuLIN REG 1unit/0.01ml Soln (100units/ml) IV ONE (17:00)
[2016-10-11 18:09] LABS: Platelet Clumps FEW
[2016-10-12] MEDS ORDERED: InsuLIN REG 1unit/0.01ml Soln (100units/ml) SC ONE ×2 (09:15→18:45)
[2016-10-12] MEDS: metFORMIN HYDROCHLORIDE 500 MG TAB PO SCH (11:31)
[2016-10-12] MEDS: LOSARTAN POTASSIUM 50 MG TAB PO SCH (11:31)
[2016-10-12] MEDS: ATORVASTATIN 20 MG TAB PO SCH (11:32)
[2016-10-12] MEDS: FUROSEMIDE 20 MG TAB PO SCH (11:32)
[2016-10-12] MEDS: ALLOPURINOL 100 MG TAB PO SCH (11:33)
[2016-10-12] MEDS ORDERED: HYDROcodone-ACET 10/325MG TAB PO ONE (11:45)
[2016-10-12] MEDS: GABAPENTIN 300 MG CAP PO SCH (14:14)
[2016-10-13] MEDS: GABAPENTIN 300 MG CAP PO SCH ×4 (06:00→23:00)
[2016-10-13] MEDS: metFORMIN HYDROCHLORIDE 500 MG TAB PO SCH ×2 (09:25→12:29)
[2016-10-13] MEDS: LOSARTAN POTASSIUM 50 MG TAB PO SCH (12:29)
[2016-10-13] MEDS: FUROSEMIDE 20 MG TAB PO SCH (12:30)
[2016-10-13] MEDS: ATORVASTATIN 20 MG TAB PO SCH (12:30)
[2016-10-13] MEDS: ALLOPURINOL 100 MG TAB PO SCH (12:30)
[2016-10-13] MEDS ORDERED: metFORMIN HYDROCHLORIDE 500 MG TAB ONE (22:47)
[2016-10-14] MEDS ORDERED: SODIUM CHLORIDE 0.9% 1,000 ML IV ONE ×3 (03:29→03:30)
[2016-10-14] MEDS ORDERED: InsuLIN REG 1unit/0.01ml Soln (100units/ml) IV ONE ×2 (03:30)
[2016-10-14] MEDS ORDERED: GLIMEPIRIDE 2 MG TAB PO ONE (09:30)
[2016-10-14] MEDS ORDERED: metFORMIN HYDROCHLORIDE 500 MG TAB PO ONE (09:30)
[2016-10-14] MEDS ORDERED: GABAPENTIN 300 MG CAP ONE (09:44)
[2016-10-14] MEDS: metFORMIN HYDROCHLORIDE 500 MG TAB PO SCH ×3 (09:46→17:40)
[2016-10-14] MEDS ORDERED: LOSARTAN POTASSIUM 50 MG TAB ONE (09:52)
[2016-10-14] MEDS ORDERED: ATORVASTATIN 20 MG TAB ONE (09:52)
[2016-10-14] MEDS ORDERED: FUROSEMIDE 40 MG TAB ONE (09:52)
[2016-10-14] MEDS: ATORVASTATIN 20 MG TAB PO SCH (10:07)
[2016-10-14] MEDS: GABAPENTIN 300 MG CAP PO SCH ×3 (10:09→22:50)
[2016-10-14] MEDS: LOSARTAN POTASSIUM 50 MG TAB PO SCH (10:10)
[2016-10-14] MEDS: ALLOPURINOL 100 MG TAB PO SCH (10:12)
[2016-10-14] MEDS: FUROSEMIDE 20 MG TAB PO SCH (10:12)
[2016-10-14] MEDS ORDERED: DEXTROSE (50%) 50ML SYRG IV PRN (10:45)
[2016-10-14] MEDS: ACCU-CHEK COMFORT CURVE STRIP VI SCH ×3 (13:34→22:30)
[2016-10-14] MEDS: InsuLIN REG 1unit/0.01ml Soln (100units/ml) SC SCH ×3 (13:34→22:50)
[2016-10-14] MEDS ORDERED: INSULIN DETEMIR(LEVEMIR) 1unit/0.01ml Soln (100units/ml) SC SCH (22:00)
[2016-10-15] MEDS: ACCU-CHEK COMFORT CURVE STRIP VI SCH (06:04)
[2016-10-15 07:10] VITALS: BP 153/83
[2016-10-15] MEDS: GABAPENTIN 300 MG CAP PO SCH (07:44)
[2016-10-15] MEDS: InsuLIN REG 1unit/0.01ml Soln (100units/ml) SC SCH (07:45)
[2016-10-15] MEDS: metFORMIN HYDROCHLORIDE 500 MG TAB PO SCH (07:46)
== END 2016-10-15 08:50 | disposition home or self-care (01) ==
LOC: EDBD 11:57 → ER 11:59
DX: F32.3 Major depressive disorder, single episode, severe with psychotic features (principal); T48.202A Poisoning by unspecified drugs acting on muscles, intentional self-harm, initial encounter; E66.01 Morbid (severe) obesity due to excess calories; F10.120 Alcohol abuse with intoxication, uncomplicated; I10 Essential (primary) hypertension; J45.909 Unspecified asthma, uncomplicated; F20.9 Schizophrenia, unspecified; Z86.73 Personal history of transient ischemic attack (TIA), and cerebral infarction without residual deficits; F17.210 Nicotine dependence, cigarettes, uncomplicated; M10.9 Gout, unspecified; Z98.51 Tubal ligation status; Y92.89 Other specified places as the place of occurrence of the external cause
CPT/HCPCS: 36415; 71010; 80053; 80307; 80320; 80329; 81001; 81025; 82947; 82962; 83735; 84443; 85025; 93005; 94761; 96361; 96372; 96374; 99285; J1815; J7030

== ENCOUNTER 2017-05-21 05:46 | Emergency (ER) | payer MEDICAID ==
[~2017-05-21] VITALS: Ht 157.5 cm; Wt 109.8 kg
[~2017-05-21 05:46] MED LIST changes: +GABA-497 PO; -GABA300C8 PO; -IBUP200C3 PO; -METF-316 PO; +METF-372 PO
[2017-05-21] MEDS ORDERED: SODIUM CHLORIDE 0.9% 1,000 ML IV ONE (07:14)
[2017-05-21] MEDS ORDERED: MECLIZINE HCL 25 MG TAB PO ONE (07:15)
[2017-05-21] MEDS ORDERED: KETOROLAC TROMETH 30 MG/ML 1ML VIAL IV ONE (07:15)
[2017-05-21] MEDS ORDERED: cloNIDine HCL 0.1 MG TAB PO ONE (07:15)
[2017-05-21 08:50] LABS: Basophils # (auto) 0.1 uL; Basophils % (auto) 0.7 % (0.0-2.0); Eosinophils # (auto) 0.1 uL; Eosinophils % (auto) 1.3 % (0.0-7.0); Hematocrit 41.4 % (36.0-46.0); Lymphocytes # (auto) 1.6 uL; Lymphocytes % (auto) 20.9 % (10.0-50.0); Mean Corpuscular Hemoglobin 31.2 pg (28.0-32.0); Mean Corpuscular Hgb Conc. 33.8 g/dL (32.0-36.0); Mean Corpuscular Volume 92.5 fL (80.0-100.0); Monocytes # (auto) 0.6 uL; Monocytes % (auto) 8.6 % (0.0-12.0); Neutrophils # (auto) 5.1 uL; Neutrophils % (auto) 68.5 % (37.0-80.0); Nucleated Red Blood Cells % 0.2 %; Platelet Count (auto) 225 10^3/uL (140-450); Red Cell Distribution Width 13.4 % (11.8-14.3); White Blood Cell 7.5 10^3/uL (4.4-10.8)
[2017-05-21 09:13] VITALS: BP 135/87
[2017-05-21 09:21] LABS: Albumin 3.1 g/dL (3.4-5.0); Alkaline Phosphatase 126 U/L (45-117); Anion Gap 8 (5-15); Aspartate Aminotransferase 12 U/L (15-37); BUN/Creatinine Ratio 19.1; Bilirubin, Total 0.4 mg/dL (0.2-1.0); Blood Urea Nitrogen 18 mg/dL (7-18); Calcium 8.5 mg/dL (8.5-10.1); Carbon Dioxide 24 mmol/L (21-32); Chloride 106 mmol/L (98-107); GFR African American 82 mL/min; GFR Non-African American 68 mL/min; Glucose 255 mg/dL (74-106); Magnesium 2.3 mg/dL (1.6-2.6); Potassium 4.6 mmol/L (3.5-5.1); Sodium 138 mmol/L (136-145); Total Protein 7.7 g/dL (6.4-8.2)
== END 2017-05-21 09:58 | disposition home or self-care (01) ==
LOC: ER 05:48
DX: R42 Dizziness and giddiness (principal); I10 Essential (primary) hypertension; J45.909 Unspecified asthma, uncomplicated; E11.9 Type 2 diabetes mellitus without complications; M10.9 Gout, unspecified; F17.210 Nicotine dependence, cigarettes, uncomplicated; Z86.73 Personal history of transient ischemic attack (TIA), and cerebral infarction without residual deficits; Z98.51 Tubal ligation status; Z88.1 Allergy status to other antibiotic agents; Z91.041 Radiographic dye allergy status; Z91.013 Allergy to seafood; Z79.4 Long term (current) use of insulin; Z79.899 Other long term (current) drug therapy
CPT/HCPCS: 36415; 70450; 80053; 82962; 83735; 84484; 85025; 96361; 96374; 99285; J1885; J7030; J8597; 93005

== ENCOUNTER 2017-06-14 14:23 | Emergency (ER) | payer MEDICAID ==
[~2017-06-14] VITALS: Ht 157.5 cm; Wt 108.9 kg
[~2017-06-14 14:23] MED LIST changes: -GABA-497 PO; +GABA300C10 PO; +TIZA4CAP PO; -TIZA4CAP5 PO
[2017-06-14 15:00] VITALS: BP 144/77
[2017-06-14] MEDS ORDERED: KETOROLAC TROMETH 60MG/2ML VIAL IM ONE (16:45)
[2017-06-14] MEDS ORDERED: cefTRIAXone SOD 1,000 MG VL IM ONE (16:45)
[2017-06-14] MEDS ORDERED: LIDOCAINE 1% HCL (LOCAL ANESTH.) INJ 20ML MDV ONE (16:51)
== END 2017-06-14 17:35 | disposition home or self-care (01) ==
LOC: ER 14:24
DX: T22.212A Burn of second degree of left forearm, initial encounter (principal); T21.21XA Burn of second degree of chest wall, initial encounter; E11.9 Type 2 diabetes mellitus without complications; I10 Essential (primary) hypertension; M10.9 Gout, unspecified; F17.210 Nicotine dependence, cigarettes, uncomplicated; Z98.51 Tubal ligation status; Z86.73 Personal history of transient ischemic attack (TIA), and cerebral infarction without residual deficits; Z79.4 Long term (current) use of insulin; Z79.899 Other long term (current) drug therapy; Z88.1 Allergy status to other antibiotic agents; Z88.8 Allergy status to other drugs, medicaments and biological substances; X58.XXXA Exposure to other specified factors, initial encounter; Y93.89 Activity, other specified; Y99.8 Other external cause status; Y92.89 Other specified places as the place of occurrence of the external cause
CPT/HCPCS: 96372; 99284; J0696; J1885; J2001

== ENCOUNTER 2017-06-30 05:29 | Inpatient (IN) | payer MEDICAID ==
[~2017-06-30] VITALS: Ht 157.5 cm; Wt 108.8 kg
[2017-06-30 07:42] LABS: Calcium 8.6 mg/dL (8.5-10.1); Potassium 4.9 mmol/L (3.5-5.1)
[2017-06-30 09:57] LABS: Urine Bacteria None Seen /hpf (None Seen)
[2017-06-30 10:10] LABS: BUN/Creatinine Ratio 11.5
[2017-06-30] MEDS ORDERED: SODIUM CHLORIDE 0.9% 1,000 ML IV ONE ×2 (10:10→10:15)
[2017-06-30 10:11] LABS: Albumin 3.5 g/dL (3.4-5.0); Bilirubin, Total 0.4 mg/dL (0.2-1.0)
[2017-06-30 10:30] LABS: Urine Blood Negative /uL (Negative); Urine Specific Gravity 1.024 (1.001-1.035)
[2017-06-30 10:34] LABS: Urine WBC 1 /hpf (0 - 5)
[2017-06-30] MEDS ORDERED: ACETAMINOPHEN 500 MG TAB PO ONE ×2 (10:39→10:45)
[2017-06-30 11:11] LABS: Basophils # (auto) 0 uL; Basophils % (auto) 0.6 % (0.0-2.0); Eosinophils # (auto) 0.2 uL; Eosinophils % (auto) 2.6 % (0.0-7.0); Hematocrit 44.2 % (36.0-46.0); Hemoglobin 14.8 g/dL (12.2-16.2); Lymphocytes # (auto) 2.2 uL; Lymphocytes % (auto) 30.4 % (10.0-50.0); Mean Corpuscular Hemoglobin 31.3 pg (28.0-32.0); Mean Corpuscular Hgb Conc. 33.5 g/dL (32.0-36.0); Mean Corpuscular Volume 93.5 fL (80.0-100.0); Monocytes # (auto) 0.6 uL; Monocytes % (auto) 7.8 % (0.0-12.0); Neutrophils # (auto) 4.2 uL; Neutrophils % (auto) 58.6 % (37.0-80.0); Nucleated Red Blood Cells % 0.2 %; Platelet Count (auto) 308 10^3/uL (140-450); Red Blood Cells 4.73 10^6/uL (4.0-5.20); Red Cell Distribution Width 13.4 % (11.8-14.3); White Blood Cell 7.2 10^3/uL (4.4-10.8)
[2017-06-30] MEDS ORDERED: cloNIDine HCL 0.1 MG TAB PO ONE (11:30)
[2017-06-30] MEDS ORDERED: InsuLIN REG 1unit/0.01ml Soln (100units/ml) IV ONE ×2 (11:30→17:45)
[2017-06-30] MEDS ORDERED: MORPHINE SULFATE 10 MG/ML INJ 1ML SDV IV PRN (12:30)
[2017-06-30] MEDS ORDERED: DEXTROSE (50%) 50ML SYRG IV PRN (12:30)
[2017-06-30] MEDS ORDERED: TEMAZEPAM 15 MG CAP PO PRN (12:30)
[2017-06-30] MEDS ORDERED: PROMETHAZINE HCL 25 MG/ML 1ML IV PRN (12:30)
[2017-06-30] MEDS ORDERED: CARISOPRODOL 350 MG TAB PO PRN (12:30)
[2017-06-30] MEDS ORDERED: NITROGLYCERIN 0.4 MG SL TAB SL PRN (12:30)
[2017-06-30] MEDS ORDERED: LORazepam 0.5 MG TAB PO PRN (12:30)
[2017-06-30] MEDS ORDERED: ALBUTEROL SULF 2.5 MG/0.5ML(0.5%) NEB SOLN NEB PRN (12:30)
[2017-06-30] MEDS ORDERED: LACTULOSE 20Gm/30ML SOLN PO PRN (12:30)
[2017-06-30] MEDS ORDERED: ACETAMINOPHEN 500 MG TAB PO PRN (12:30)
[2017-06-30] MEDS: SODIUM CHLORIDE 0.9% 1,000 ML IV SCH ×2 (12:40→20:46)
[2017-06-30] MEDS ORDERED: LACTULOSE 20Gm/30ML SOLN PO ONE (13:15)
[2017-06-30] MEDS: MORPHINE SULFATE 10 MG/ML INJ 1ML SDV IV PRN ×2 (13:56→22:34)
[2017-06-30] MEDS: GABAPENTIN 300 MG CAP PO SCH ×2 (13:56→21:28)
[2017-06-30] MEDS: AZITHROMYCIN 250 MG TAB PO SCH (14:18)
[2017-06-30] MEDS: InsuLIN REG 1unit/0.01ml Soln (100units/ml) SC SCH ×3 (16:00→23:38)
[2017-06-30] MEDS: ACCU-CHEK COMFORT CURVE STRIP VI SCH ×3 (16:00→23:38)
[2017-06-30 17:02] VITALS: BP 124/70
[2017-06-30] MEDS ORDERED: INSULIN DETEMIR(LEVEMIR) 1unit/0.01ml Soln (100units/ml) SC SCH (18:00)
[2017-06-30] MEDS: HYDROcodone-ACET 10/325MG TAB PO PRN (18:19)
[2017-06-30] MEDS: ALBUTEROL SULF 2.5 MG/0.5ML(0.5%) NEB SOLN NEB SCH (19:13)
[2017-06-30] MEDS: BUDESONIDE (INHALATION) 0.5 MG/2 ML NEB NEB SCH (19:13)
[2017-06-30 20:00] VITALS: BP 125/77
[2017-06-30] MEDS ORDERED: DOXYCYCLINE 100 MG TAB/CAP PO SCH (22:00)
[2017-06-30] MEDS: CLOBETASOL PROPIONATE 0.05% TD SCH (22:00)
[2017-06-30] MEDS ORDERED: MORPHINE SULF INJ 2 MG/ML SYRINGE 1ML ONE (22:16)
[2017-06-30 22:29] VITALS: BP 125/77
[2017-07-01] MEDS: ALBUTEROL SULF 2.5 MG/0.5ML(0.5%) NEB SOLN NEB SCH ×3 (00:42→11:33)
[2017-07-01] MEDS: InsuLIN REG 1unit/0.01ml Soln (100units/ml) SC SCH ×3 (04:00→12:08)
[2017-07-01] MEDS: ACCU-CHEK COMFORT CURVE STRIP VI SCH ×3 (04:13→12:07)
[2017-07-01] MEDS: SODIUM CHLORIDE 0.9% 1,000 ML IV SCH (05:06)
[2017-07-01 05:40] VITALS: BP 127/73
[2017-07-01] MEDS: GABAPENTIN 300 MG CAP PO SCH (06:00)
[2017-07-01 06:02] LABS: BUN/Creatinine Ratio 20.2; Bilirubin, Total 0.3 mg/dL (0.2-1.0); Calcium 8.3 mg/dL (8.5-10.1); Potassium 3.8 mmol/L (3.5-5.1)
[2017-07-01] MEDS: BUDESONIDE (INHALATION) 0.5 MG/2 ML NEB NEB SCH (06:17)
[2017-07-01] MEDS: AZITHROMYCIN 250 MG TAB PO SCH (08:47)
[2017-07-01 09:07] VITALS: BP 126/68
[2017-07-01 09:15] VITALS: BP 123/68
[2017-07-01] MEDS ORDERED: ENOXAPARIN SOD 40 MG/0.4 ML SYRINGE SC SCH (10:00)
[2017-07-01] MEDS ORDERED: LOSARTAN POTASSIUM 50 MG TAB PO SCH (10:00)
[2017-07-01] MEDS: CLOBETASOL PROPIONATE 0.05% TD SCH (10:00)
[2017-07-01] MEDS ORDERED: ATORVASTATIN 20 MG TAB PO SCH (10:00)
[2017-07-01] MEDS ORDERED: ALLOPURINOL 100 MG TAB PO SCH (10:00)
[2017-07-01] MEDS ORDERED: FUROSEMIDE 20 MG TAB PO SCH (10:00)
[2017-07-01] MEDS ORDERED: PANTOPRAZOLE 40 MG TAB PO SCH (10:00)
[2017-07-01 12:03] VITALS: BP 116/62
[2017-07-01] MEDS ORDERED: AZIT250T8 PO (12:17)
[2017-07-01] MEDS: HYDROcodone-ACET 10/325MG TAB PO PRN (12:38)
[2017-07-01 12:44] VITALS: BP 116/62
== END 2017-07-01 13:30 | disposition home or self-care (01) | DRG 469 ==
LOC: ER 05:33 → TELE 05:34 → TELE-CENTR 14:58
PROVIDERS: ADMIT Internal Medicine; ATTEND Internal Medicine
DX: N17.9 Acute kidney failure, unspecified (principal); E11.21 Type 2 diabetes mellitus with diabetic nephropathy; F03.90 Unspecified dementia, unspecified severity, without behavioral disturbance, psychotic disturbance, mood disturbance, and anxiety; E11.65 Type 2 diabetes mellitus with hyperglycemia; Z68.41 Body mass index [BMI] 40.0-44.9, adult; F20.9 Schizophrenia, unspecified; E66.01 Morbid (severe) obesity due to excess calories; I12.9 Hypertensive chronic kidney disease with stage 1 through stage 4 chronic kidney disease, or unspecified chronic kidney disease; N18.9 Chronic kidney disease, unspecified; L40.9 Psoriasis, unspecified; M10.9 Gout, unspecified; K59.00 Constipation, unspecified; J06.9 Acute upper respiratory infection, unspecified; E87.1 Hypo-osmolality and hyponatremia; F17.210 Nicotine dependence, cigarettes, uncomplicated; F41.9 Anxiety disorder, unspecified; J45.909 Unspecified asthma, uncomplicated; Z86.73 Personal history of transient ischemic attack (TIA), and cerebral infarction without residual deficits; Z79.4 Long term (current) use of insulin; Z80.7 Family history of other malignant neoplasms of lymphoid, hematopoietic and related tissues; Z83.3 Family history of diabetes mellitus; Z82.49 Family history of ischemic heart disease and other diseases of the circulatory system; Z80.8 Family history of malignant neoplasm of other organs or systems; Z88.1 Allergy status to other antibiotic agents; Z91.041 Radiographic dye allergy status; Z88.8 Allergy status to other drugs, medicaments and biological substances; Z91.013 Allergy to seafood
CPT/HCPCS: 36415; 71045; 80053; 80061; 81001; 82962; 83036; 83735; 84443; 85025; 87081; 94640; 94761; 96361; 96374; J1815

== ENCOUNTER 2017-08-17 08:57 | Inpatient (IN) | payer MEDICAID ==
[~2017-08-17] VITALS: Ht 160 cm; Wt 111.1 kg
[~2017-08-17 08:57] MED LIST changes: +AZIT250T8 PO
[2017-08-17 09:22] LABS: Basophils # (auto) 0 uL; Basophils % (auto) 0.7 % (0.0-2.0); Eosinophils # (auto) 0.2 uL; Eosinophils % (auto) 2.1 % (0.0-7.0); Hematocrit 42.6 % (36.0-46.0); Hemoglobin 14.5 g/dL (12.2-16.2); Lymphocytes # (auto) 2.3 uL; Lymphocytes % (auto) 31.6 % (10.0-50.0); Mean Corpuscular Hemoglobin 31.4 pg (28.0-32.0); Mean Corpuscular Volume 92.3 fL (80.0-100.0); Monocytes # (auto) 0.7 uL; Monocytes % (auto) 9.4 % (0.0-12.0); Neutrophils # (auto) 4.1 uL; Neutrophils % (auto) 56.2 % (37.0-80.0); Nucleated Red Blood Cells % 0.6 %; Platelet Count (auto) 247 10^3/uL (140-450); Red Blood Cells 4.62 10^6/uL (4.0-5.20); Red Cell Distribution Width 13.1 % (11.8-14.3); White Blood Cell 7.3 10^3/uL (4.4-10.8)
[2017-08-17] MEDS ORDERED: SODIUM CHLORIDE 0.9% 1,000 ML IV ONE ×2 (09:29)
[2017-08-17 09:43] LABS: Albumin 3.4 g/dL (3.4-5.0); BUN/Creatinine Ratio 11.3; Bilirubin, Total 0.2 mg/dL (0.2-1.0); Calcium 8.8 mg/dL (8.5-10.1); Potassium 4.3 mmol/L (3.5-5.1)
[2017-08-17 10:04] LABS: INR 0.94 (0.9-1.15); Partial Thromboplastin Time 24.9 sec (22.64-33.71); Prothrombin Time 10.2 sec (9.37-12.3)
[2017-08-17] MEDS ORDERED: InsuLIN R (HUMAN) 100 UNITS in SODIUM CHL 0.9% 99 ML IV SCH (10:05)
[2017-08-17] MEDS ORDERED: DEXTROSE (50%) 50ML SYRG IV PRN ×2 (10:15→11:00)
[2017-08-17] MEDS: ACCU-CHEK COMFORT CURVE STRIP VI SCH ×5 (10:22→20:03)
[2017-08-17] MEDS ORDERED: InsuLIN REG 1unit/0.01ml Soln (100units/ml) IV ONE (10:30)
[2017-08-17] MEDS ORDERED: MORPHINE SULFATE 4 MG/ML SYR/VIAL IV PRN (11:00)
[2017-08-17] MEDS ORDERED: LACTULOSE 20Gm/30ML SOLN PO PRN (11:00)
[2017-08-17] MEDS ORDERED: CARISOPRODOL 350 MG TAB PO PRN (11:00)
[2017-08-17] MEDS ORDERED: NITROGLYCERIN 0.4 MG SL TAB SL PRN (11:00)
[2017-08-17] MEDS ORDERED: PATIENTS OWN MEDICATION (Albuterol Sulfate (Ventolin Mdi) 90 MCG) IN PRN (11:00)
[2017-08-17] MEDS: SODIUM CHLORIDE 0.9% 1,000 ML IV SCH ×2 (11:07→20:55)
[2017-08-17] MEDS ORDERED: InsuLIN REG 1unit/0.01ml Soln (100units/ml) SC ONE (11:15)
[2017-08-17] MEDS ORDERED: ALBUTEROL SULF 2.5 MG/0.5ML(0.5%) NEB SOLN NEB PRN (11:45)
[2017-08-17] MEDS: InsuLIN REG 1unit/0.01ml Soln (100units/ml) SC SCH ×3 (12:00→20:17)
[2017-08-17] MEDS: ENOXAPARIN SOD 40 MG/0.4 ML SYRINGE SC SCH (12:12)
[2017-08-17] MEDS: BUDESONIDE (INHALATION) 0.5 MG/2 ML NEB NEB SCH ×2 (12:28→18:42)
[2017-08-17] MEDS: ALBUTEROL SULF 2.5 MG/0.5ML(0.5%) NEB SOLN NEB SCH ×2 (12:28→18:42)
[2017-08-17 12:57] VITALS: BP 187/82
[2017-08-17] MEDS: GABAPENTIN 300 MG CAP PO SCH ×2 (13:46→22:44)
[2017-08-17 17:04] VITALS: BP 112/54
[2017-08-17] MEDS ORDERED: INSULIN GLARGINE 50 UNIT SUBCUT SCH (18:00)
[2017-08-17 22:00] VITALS: BP 126/56
[2017-08-17] MEDS ORDERED: ATORVASTATIN 20 MG TAB PO SCH (22:00)
[2017-08-17] MEDS ORDERED: PATIENTS OWN MEDICATION (Fluticasone-Salmeterol (Advair Diskus 250/50) 1 PUFF) INH SCH (22:00)
[2017-08-17] MEDS ORDERED: INSULIN LANTUS (GLARGINE) 1 /0.01ml (100units/ml) SC SCH (22:00)
[2017-08-17] MEDS: CLOBETASOL TD SCH (22:00)
[2017-08-17] MEDS ORDERED: diphenhdrAMINE HCL 25 MG CAP PO ONE (22:30)
[2017-08-17] MEDS ORDERED: HYDROcodone-ACET 7.5/325MG TAB PO ONE (22:30)
[2017-08-18] MEDS: ACCU-CHEK COMFORT CURVE STRIP VI SCH ×4 (00:24→12:00)
[2017-08-18] MEDS: InsuLIN REG 1unit/0.01ml Soln (100units/ml) SC SCH ×4 (00:24→12:00)
[2017-08-18] MEDS: ALBUTEROL SULF 2.5 MG/0.5ML(0.5%) NEB SOLN NEB SCH ×2 (01:09→06:00)
[2017-08-18 05:00] VITALS: BP 107/58
[2017-08-18] MEDS ORDERED: HYDR-531 PO (05:15)
[2017-08-18] MEDS: GABAPENTIN 300 MG CAP PO SCH (05:39)
[2017-08-18] MEDS: SODIUM CHLORIDE 0.9% 1,000 ML IV SCH (07:06)
[2017-08-18 07:54] LABS: Alanine Aminotransferase 14 U/L (13-56); Albumin 2.7 g/dL (3.4-5.0); Alkaline Phosphatase 106 U/L (45-117); Anion Gap 8 (5-15); Aspartate Aminotransferase 21 U/L (15-37); BUN/Creatinine Ratio 14.7; Bilirubin, Total 0.3 mg/dL (0.2-1.0); Blood Urea Nitrogen 17 mg/dL (7-18); Calcium 8.4 mg/dL (8.5-10.1); Carbon Dioxide 23 mmol/L (21-32); Chloride 107 mmol/L (98-107); Cholesterol 159 mg/dL (< 200); GFR African American 64 mL/min; GFR Non-African American 53 mL/min; Glucose 142 mg/dL (74-106); HDL Cholesterol 29 mg/dL (40-59); Sodium 138 mmol/L (136-145); Total Protein 6.8 g/dL (6.4-8.2); Triglycerides 408 mg/dL (< 150)
[2017-08-18 07:56] LABS: Potassium 3.6 mmol/L (3.5-5.1)
[2017-08-18 09:00] VITALS: BP 141/72
[2017-08-18] MEDS: ENOXAPARIN SOD 40 MG/0.4 ML SYRINGE SC SCH (09:34)
[2017-08-18] MEDS: CLOBETASOL TD SCH (10:00)
[2017-08-18] MEDS ORDERED: LOSARTAN POTASSIUM 50 MG TAB PO SCH (10:00)
[2017-08-18] MEDS ORDERED: PATIENTS OWN MEDICATION (Simvastatin 40 MG) PO SCH (10:00)
[2017-08-18] MEDS ORDERED: ALLOPURINOL 100 MG TAB PO SCH (10:00)
[2017-08-18 11:33] VITALS: BP 141/72
== END 2017-08-18 14:17 | disposition home or self-care (01) | DRG 420 ==
LOC: ER 08:57 → TELE 08:58 → TELE-EAST 14:32
PROVIDERS: ADMIT Internal Medicine; ATTEND Internal Medicine
DX: E11.00 Type 2 diabetes mellitus with hyperosmolarity without nonketotic hyperglycemic-hyperosmolar coma (NKHHC) (principal); I11.0 Hypertensive heart disease with heart failure; E11.40 Type 2 diabetes mellitus with diabetic neuropathy, unspecified; I50.9 Heart failure, unspecified; E66.01 Morbid (severe) obesity due to excess calories; E78.5 Hyperlipidemia, unspecified; F17.210 Nicotine dependence, cigarettes, uncomplicated; F20.9 Schizophrenia, unspecified; J44.9 Chronic obstructive pulmonary disease, unspecified; L40.9 Psoriasis, unspecified; Z79.4 Long term (current) use of insulin; Z80.7 Family history of other malignant neoplasms of lymphoid, hematopoietic and related tissues; Z82.49 Family history of ischemic heart disease and other diseases of the circulatory system; Z83.3 Family history of diabetes mellitus; Z86.73 Personal history of transient ischemic attack (TIA), and cerebral infarction without residual deficits; Z90.721 Acquired absence of ovaries, unilateral; F32.9 Major depressive disorder, single episode, unspecified; F41.9 Anxiety disorder, unspecified; I45.10 Unspecified right bundle-branch block; M10.9 Gout, unspecified; Z88.1 Allergy status to other antibiotic agents; Z88.8 Allergy status to other drugs, medicaments and biological substances; Z91.013 Allergy to seafood
CPT/HCPCS: 36415; 36600; 71045; 80053; 80061; 82805; 82962; 83036; 85025; 85610; 85730; 87081; 94640; 94761; 96361; 96365; 96375; J1815

== ENCOUNTER 2017-10-28 20:56 | Emergency (ER) | payer MEDICAID ==
[~2017-10-28] VITALS: Ht 157.5 cm; Wt 81.6 kg
[~2017-10-28 20:56] MED LIST changes: +HYDR-531 PO
[2017-10-28 21:27] LABS: Basophils # (auto) 0 uL; Basophils % (auto) 0.4 % (0.0-2.0); Eosinophils # (auto) 0.1 uL; Eosinophils % (auto) 1.6 % (0.0-7.0); Hematocrit 43.7 % (36.0-46.0); Hemoglobin 15.1 g/dL (12.2-16.2); Lymphocytes # (auto) 2.7 uL; Lymphocytes % (auto) 30.1 % (10.0-50.0); Mean Corpuscular Hemoglobin 31.6 pg (28.0-32.0); Mean Corpuscular Hgb Conc. 34.5 g/dL (32.0-36.0); Mean Corpuscular Volume 91.6 fL (80.0-100.0); Monocytes # (auto) 0.7 uL; Monocytes % (auto) 8.3 % (0.0-12.0); Neutrophils # (auto) 5.3 uL; Neutrophils % (auto) 59.6 % (37.0-80.0); Nucleated Red Blood Cells % 0.3 %; Platelet Count (auto) 264 10^3/uL (140-450); Red Blood Cells 4.77 10^6/uL (4.0-5.20); Red Cell Distribution Width 12.9 % (11.8-14.3); White Blood Cell 8.9 10^3/uL (4.4-10.8)
[2017-10-28 21:38] LABS: INR 0.98 (0.9-1.15); Partial Thromboplastin Time 24.5 sec (22.64-33.71); Prothrombin Time 10.7 sec (9.37-12.3)
[2017-10-28 21:43] LABS: Calcium 9.3 mg/dL (8.5-10.1); Chloride 101 mmol/L (98-107); Potassium 3.4 mmol/L (3.5-5.1); Sodium 135 mmol/L (136-145)
[2017-10-28 21:47] LABS: Albumin 3.5 g/dL (3.4-5.0); Anion Gap 13 (5-15); BUN/Creatinine Ratio 10.2; Blood Urea Nitrogen 30 mg/dL (7-18); Carbon Dioxide 21 mmol/L (21-32); GFR African American 22 mL/min; GFR Non-African American 18 mL/min; Glucose 264 mg/dL (74-106)
[2017-10-28 21:51] LABS: Alanine Aminotransferase 17 U/L (13-56); Alkaline Phosphatase 112 U/L (45-117); Aspartate Aminotransferase 10 U/L (15-37); Bilirubin, Total 0.4 mg/dL (0.2-1.0); Total Protein 8.4 g/dL (6.4-8.2)
[2017-10-28] MEDS ORDERED: PHENAZOPYRIDINE HCL 100 MG TAB PO ONE (22:45)
[2017-10-29 01:32] VITALS: BP 117/57
[2017-10-29 01:32] LABS: Urine Bacteria MOD /hpf (None Seen); Urine Blood TRACE /uL (Negative); Urine Hyaline Cast FEW /lpf (0 - 2); Urine Specific Gravity 1.006 (1.001-1.035); Urine WBC 1 /hpf (0 - 5)
[2017-10-29 01:48] LABS: Alcohol, Urine < 3.0 mg/dL (0-5); Amphetamine Screen, Urine NEGATIVE (NEGATIVE); Barbiturate Scree,Urine NEGATIVE (NEGATIVE); Benzodiazephine Screen, Urine NEGATIVE (NEGATIVE); Cannabinoid Screen, Urine NEGATIVE (NEGATIVE)
[2017-10-29 01:50] LABS: Cocaine Screen, Urine NEGATIVE (NEGATIVE); Opiate Scree,Urine NEGATIVE (NEGATIVE); Phencyclidine Screen, Urine NEGATIVE (NEGATIVE)
[2017-10-29] MEDS ORDERED: LORazepam 0.5 MG TAB PO ONE (02:30)
== END 2017-10-29 06:27 | disposition home or self-care (01) ==
LOC: ER 20:56
DX: R07.89 Other chest pain (principal); F41.9 Anxiety disorder, unspecified; F17.210 Nicotine dependence, cigarettes, uncomplicated; J45.909 Unspecified asthma, uncomplicated; E11.9 Type 2 diabetes mellitus without complications; M10.9 Gout, unspecified; I10 Essential (primary) hypertension; E78.5 Hyperlipidemia, unspecified; R10.9 Unspecified abdominal pain; Z88.8 Allergy status to other drugs, medicaments and biological substances; Z91.013 Allergy to seafood; Z79.4 Long term (current) use of insulin; Z88.1 Allergy status to other antibiotic agents; Z86.73 Personal history of transient ischemic attack (TIA), and cerebral infarction without residual deficits
CPT/HCPCS: 36415; 71045; 74176; 80053; 80307; 81001; 84484; 85025; 85610; 85730; 93005

== ENCOUNTER 2017-11-20 07:25 | Inpatient (IN) | payer MEDICAID ==
[~2017-11-20] VITALS: Ht 157.5 cm; Wt 106.4 kg
[2017-11-20] MEDS ORDERED: SODIUM CHLORIDE 0.9% 1,000 ML IV ONE ×2 (07:36)
[2017-11-20 08:16] LABS: Basophils # (auto) 0 uL; Basophils % (auto) 0.7 % (0.0-2.0); Eosinophils # (auto) 0.1 uL; Eosinophils % (auto) 1.7 % (0.0-7.0); Hematocrit 43.2 % (36.0-46.0); Hemoglobin 14.2 g/dL (12.2-16.2); Lymphocytes # (auto) 1.6 uL; Lymphocytes % (auto) 30.8 % (10.0-50.0); Mean Corpuscular Hemoglobin 30.7 pg (28.0-32.0); Mean Corpuscular Hgb Conc. 32.9 g/dL (32.0-36.0); Mean Corpuscular Volume 93.5 fL (80.0-100.0); Monocytes # (auto) 0.5 uL; Monocytes % (auto) 10.1 % (0.0-12.0); Neutrophils % (auto) 56.7 % (37.0-80.0); Nucleated Red Blood Cells % 0.3 %; Platelet Count (auto) 212 10^3/uL (140-450); Red Blood Cells 4.62 10^6/uL (4.0-5.20); Red Cell Distribution Width 12.9 % (11.8-14.3); White Blood Cell 5.3 10^3/uL (4.4-10.8)
[2017-11-20 08:28] LABS: Urine Bacteria FEW /hpf (None Seen); Urine Blood Negative /uL (Negative); Urine WBC 3 /hpf (0 - 5)
[2017-11-20 08:48] LABS: Alanine Aminotransferase 16 U/L (13-56); Albumin 3.2 g/dL (3.4-5.0); Alkaline Phosphatase 253 U/L (45-117); Anion Gap 12 (5-15); Aspartate Aminotransferase 10 U/L (15-37); BUN/Creatinine Ratio 10.4; Bilirubin, Total 0.3 mg/dL (0.2-1.0); Blood Urea Nitrogen 17 mg/dL (7-18); Calcium 8.8 mg/dL (8.5-10.1); Carbon Dioxide 21 mmol/L (21-32); Chloride 94 mmol/L (98-107); GFR African American 43 mL/min; GFR Non-African American 36 mL/min; Sodium 127 mmol/L (136-145); Total Protein 7.5 g/dL (6.4-8.2)
[2017-11-20 09:22] LABS: Glucose 831 mg/dL (74-106)
[2017-11-20] MEDS ORDERED: InsuLIN REG 1unit/0.01ml Soln (100units/ml) IV ONE (10:00)
[2017-11-20] MEDS ORDERED: KETOROLAC TROMETH 30 MG/ML 1ML VIAL IV ONE (11:00)
[2017-11-20] MEDS ORDERED: ONDANSETRON HCL 4 MG/2 ML VIAL IV ONE (11:00)
[2017-11-20] MEDS ORDERED: diphenhdrAMINE HCL 50 MG/1 ML VL ONE (11:29)
[2017-11-20] MEDS ORDERED: diphenhdrAMINE HCL 50 MG/1 ML VL IV ONE (11:45)
[2017-11-20] MEDS: SODIUM CHLORIDE 0.9% 1,000 ML IV SCH ×2 (11:58→20:21)
[2017-11-20] MEDS ORDERED: ONDANSETRON HCL 4 MG/2 ML VIAL IV PRN (12:00)
[2017-11-20] MEDS ORDERED: ACETAMINOPHEN 325 MG TAB PO PRN (12:00)
[2017-11-20] MEDS ORDERED: DEXTROSE (50%) 50ML SYRG IV PRN ×2 (12:00→21:45)
[2017-11-20] MEDS ORDERED: MORPHINE SULFATE 8mg/ml INJ SDV IV PRN (12:00)
[2017-11-20] MEDS ORDERED: TEMAZEPAM 15 MG CAP PO PRN (12:00)
[2017-11-20] MEDS ORDERED: cefTRIAXone 1GM/10ml IVPUSH 10 ML IV ONE (12:00)
[2017-11-20] MEDS ORDERED: NITROGLYCERIN 0.4 MG SL TAB SL PRN (12:00)
[2017-11-20] MEDS ORDERED: SODIUM CHLORIDE 0.9% 2,000 ML IV ONE (12:15)
[2017-11-20] MEDS: ACCU-CHEK COMFORT CURVE STRIP VI SCH ×8 (13:00→22:30)
[2017-11-20] MEDS: InsuLIN R (HUMAN) 100 UNITS in SODIUM CHL 0.9% 99 ML IV SCH (13:00)
[2017-11-20] MEDS: FAMOTIDINE 20 MG TAB PO SCH ×2 (13:10→22:05)
[2017-11-20] MEDS: LOSARTAN POTASSIUM 50 MG TAB PO SCH (13:11)
[2017-11-20] MEDS: MULTIPLE VITAMIN TAB PO SCH (13:11)
[2017-11-20 13:13] LABS: Lactic Acid w/Reflex 3.4 mmol/L (0.4-2.0)
[2017-11-20] MEDS: metroNIDAZOLE 500MG/100ML 100 ML IV SCH ×2 (14:00→22:05)
[2017-11-20] MEDS: Boost Glucose Control 8 Ounces PO SCH (18:00)
[2017-11-20] MEDS: ALLOPURINOL 100 MG TAB PO SCH (18:27)
[2017-11-20] MEDS: NALBUPHINE HCL 10 MG/1ml INJECTION IV PRN (21:01)
[2017-11-20] MEDS: ATORVASTATIN 20 MG TAB PO SCH (22:05)
[2017-11-21] VITALS (8 sets, daily range): BP systolic 96–158; BP diastolic 61–91
[2017-11-21] MEDS: ACCU-CHEK COMFORT CURVE STRIP VI SCH ×20 (00:04→23:53)
[2017-11-21] MEDS: InsuLIN REG 1unit/0.01ml Soln (100units/ml) SC SCH ×6 (00:25→20:14)
[2017-11-21] MEDS: NALBUPHINE HCL 10 MG/1ml INJECTION IV PRN ×4 (00:36→23:53)
[2017-11-21] MEDS ORDERED: LOSA100T27 PO (03:15)
[2017-11-21] MEDS: SODIUM CHLORIDE 0.9% 1,000 ML IV SCH ×3 (04:10→21:18)
[2017-11-21] MEDS: HYDROcodone-ACET 5/325MG TAB PO PRN ×2 (04:55→14:00)
[2017-11-21] MEDS: metroNIDAZOLE 500MG/100ML 100 ML IV SCH ×3 (05:53→22:21)
[2017-11-21 07:30] LABS: Basophils # (auto) 0 uL; Basophils % (auto) 0.6 % (0.0-2.0); Eosinophils # (auto) 0.2 uL; Eosinophils % (auto) 2.9 % (0.0-7.0); Hematocrit 39.8 % (36.0-46.0); Hemoglobin 13.4 g/dL (12.2-16.2); Lymphocytes # (auto) 2.3 uL; Lymphocytes % (auto) 36.5 % (10.0-50.0); Mean Corpuscular Hemoglobin 31.4 pg (28.0-32.0); Mean Corpuscular Hgb Conc. 33.6 g/dL (32.0-36.0); Mean Corpuscular Volume 93.5 fL (80.0-100.0); Monocytes # (auto) 0.5 uL; Monocytes % (auto) 8.1 % (0.0-12.0); Neutrophils # (auto) 3.3 uL; Neutrophils % (auto) 51.9 % (37.0-80.0); Nucleated Red Blood Cells % 0.1 %; Platelet Count (auto) 220 10^3/uL (140-450); Red Blood Cells 4.26 10^6/uL (4.0-5.20); Red Cell Distribution Width 13.1 % (11.8-14.3); White Blood Cell 6.3 10^3/uL (4.4-10.8)
[2017-11-21 08:04] LABS: Albumin 2.9 g/dL (3.4-5.0); BUN/Creatinine Ratio 12.2; Bilirubin, Total 0.3 mg/dL (0.2-1.0); Calcium 8.6 mg/dL (8.5-10.1); Potassium 3.5 mmol/L (3.5-5.1); Total Protein 6.8 g/dL (6.4-8.2)
[2017-11-21] MEDS: Boost Glucose Control 8 Ounces PO SCH ×3 (08:08→18:00)
[2017-11-21] MEDS: ALLOPURINOL 100 MG TAB PO SCH ×2 (08:10→19:10)
[2017-11-21] MEDS: cefTRIAXone 1GM/10ml IVPUSH 10 ML IV SCH (09:24)
[2017-11-21] MEDS: MULTIPLE VITAMIN TAB PO SCH (09:39)
[2017-11-21] MEDS: FAMOTIDINE 20 MG TAB PO SCH ×2 (09:39→22:21)
[2017-11-21] MEDS: LOSARTAN POTASSIUM 50 MG TAB PO SCH (09:39)
[2017-11-21] MEDS: TIZANIDINE 4MG PO SCH (09:40)
[2017-11-21] MEDS: InsuLIN R (HUMAN) 100 UNITS in SODIUM CHL 0.9% 99 ML IV SCH (12:30)
[2017-11-21] MEDS ORDERED: diphenhdrAMINE HCL 25 MG CAP PO PRN (19:15)
[2017-11-21] MEDS: ATORVASTATIN 20 MG TAB PO SCH (22:21)
[2017-11-22] MEDS: HYDROcodone-ACET 5/325MG TAB PO PRN (04:12)
[2017-11-22] MEDS: InsuLIN REG 1unit/0.01ml Soln (100units/ml) SC SCH ×4 (04:12→12:20)
[2017-11-22] MEDS: ACCU-CHEK COMFORT CURVE STRIP VI SCH ×3 (04:28→12:20)
[2017-11-22 04:50] VITALS: BP 138/66
[2017-11-22] MEDS: SODIUM CHLORIDE 0.9% 1,000 ML IV SCH (05:41)
[2017-11-22] MEDS: metroNIDAZOLE 500MG/100ML 100 ML IV SCH (05:42)
[2017-11-22 07:50] VITALS: BP 138/66
[2017-11-22] MEDS: Boost Glucose Control 8 Ounces PO SCH ×2 (08:00→12:00)
[2017-11-22 08:24] VITALS: BP 114/68
[2017-11-22] MEDS: cefTRIAXone 1GM/10ml IVPUSH 10 ML IV SCH (09:11)
[2017-11-22] MEDS: ALLOPURINOL 100 MG TAB PO SCH (09:12)
[2017-11-22] MEDS: FAMOTIDINE 20 MG TAB PO SCH (09:12)
[2017-11-22] MEDS: MULTIPLE VITAMIN TAB PO SCH (09:12)
[2017-11-22] MEDS: LOSARTAN POTASSIUM 50 MG TAB PO SCH (09:12)
[2017-11-22] MEDS: NALBUPHINE HCL 10 MG/1ml INJECTION IV PRN (09:33)
[2017-11-22] MEDS: TIZANIDINE 4MG PO SCH (10:00)
[2017-11-22] MEDS ORDERED: DOCUSATE CALCIUM 240 MG CAP PO ONE (11:45)
== END 2017-11-22 12:40 | disposition left against medical advice (07) | DRG 720 ==
LOC: ER 07:32 → TELE 07:33 → TELE-CENTR 23:13
PROVIDERS: ADMIT Internal Medicine; ATTEND Internal Medicine Pulmonary Disease
DX: A41.9 Sepsis, unspecified organism (principal); E11.21 Type 2 diabetes mellitus with diabetic nephropathy; E44.0 Moderate protein-calorie malnutrition; E11.65 Type 2 diabetes mellitus with hyperglycemia; N18.3 Chronic kidney disease, stage 3 (moderate); E87.1 Hypo-osmolality and hyponatremia; I10 Essential (primary) hypertension; E86.0 Dehydration; K52.9 Noninfective gastroenteritis and colitis, unspecified; N39.0 Urinary tract infection, site not specified; I12.9 Hypertensive chronic kidney disease with stage 1 through stage 4 chronic kidney disease, or unspecified chronic kidney disease; E11.22 Type 2 diabetes mellitus with diabetic chronic kidney disease; E66.01 Morbid (severe) obesity due to excess calories; E78.5 Hyperlipidemia, unspecified; F32.9 Major depressive disorder, single episode, unspecified; F41.9 Anxiety disorder, unspecified; Z53.21 Procedure and treatment not carried out due to patient leaving prior to being seen by health care provider; F17.210 Nicotine dependence, cigarettes, uncomplicated; Z98.51 Tubal ligation status; Z88.1 Allergy status to other antibiotic agents; Z91.041 Radiographic dye allergy status; Z88.8 Allergy status to other drugs, medicaments and biological substances; Z91.013 Allergy to seafood; Z79.899 Other long term (current) drug therapy; Z79.4 Long term (current) use of insulin; Z83.3 Family history of diabetes mellitus; Z68.41 Body mass index [BMI] 40.0-44.9, adult
CPT/HCPCS: 36415; 36600; 74176; 80053; 81001; 82010; 82805; 82962; 83036; 83605; 84443; 84484; 85025; 87040; 87081; 87086; 93005; 96361; 96374; 96375; J1815; J1885; J2405; J3490

== ENCOUNTER 2018-02-15 03:03 | Emergency (ER) | payer MEDICAID ==
[~2018-02-15] VITALS: Ht 157.5 cm; Wt 98.9 kg
[~2018-02-15 03:03] MED LIST changes: -FLUT250M2 INH; -HYDR-531 PO; +LOSA100T27 PO; -LOSA50TA6 PO; -METF-372 PO; -NOR10T PO; -[UNRECOGNIZED DRUG - CODE] SUBCUT
[2018-02-15 04:51] LABS: Basophils # (auto) 0 uL; Basophils % (auto) 0.7 % (0.0-2.0); Eosinophils # (auto) 0.2 uL; Eosinophils % (auto) 2.2 % (0.0-7.0); Hematocrit 41.2 % (36.0-46.0); Hemoglobin 13.8 g/dL (12.2-16.2); Lymphocytes # (auto) 2.1 uL; Lymphocytes % (auto) 30.3 % (10.0-50.0); Mean Corpuscular Hemoglobin 31.4 pg (28.0-32.0); Mean Corpuscular Hgb Conc. 33.6 g/dL (32.0-36.0); Mean Corpuscular Volume 93.6 fL (80.0-100.0); Monocytes # (auto) 0.6 uL; Neutrophils % (auto) 57.8 % (37.0-80.0); Nucleated Red Blood Cells % 0.1 %; Platelet Count (auto) 252 10^3/uL (140-450); Red Cell Distribution Width 13.4 % (11.8-14.3)
[2018-02-15 04:56] LABS: Urine Bacteria NONE SEEN /hpf (None Seen); Urine Blood Negative /uL (Negative); Urine WBC 1 /hpf (0 - 5)
[2018-02-15 05:12] LABS: Albumin 3.5 g/dL (3.4-5.0); BUN/Creatinine Ratio 11.8; Bilirubin, Total 0.3 mg/dL (0.2-1.0); Calcium 8.7 mg/dL (8.5-10.1); Potassium 4.2 mmol/L (3.5-5.1); Total Protein 7.9 g/dL (6.4-8.2)
[2018-02-15] MEDS ORDERED: MORPHINE SULF INJ 2 MG/ML SYRINGE 1ML ONE (06:43)
[2018-02-15] MEDS ORDERED: MORPHINE SULF INJ 2 MG/ML SYRINGE 1ML IV ONE (06:45)
[2018-02-15] MEDS ORDERED: KETOROLAC TROMETH 30 MG/ML 1ML VIAL IV ONE (06:45)
[2018-02-15] MEDS ORDERED: ONDANSETRON HCL 4 MG/2 ML VIAL IV ONE (06:45)
[2018-02-15] MEDS ORDERED: SODIUM CHLORIDE 0.9% 1,000 ML IV ONE ×2 (07:11)
[2018-02-15] MEDS ORDERED: InsuLIN REG 1unit/0.01ml Soln (100units/ml) IV ONE ×2 (07:15→09:30)
[2018-02-15] MEDS: InsuLIN REG 1unit/0.01ml Soln (100units/ml) IV ONE ×2 (08:27→09:15)
[2018-02-15 10:15] VITALS: BP 161/80
== END 2018-02-15 11:08 | disposition home or self-care (01) ==
LOC: ER 03:06
DX: E11.65 Type 2 diabetes mellitus with hyperglycemia (principal); I10 Essential (primary) hypertension; E78.5 Hyperlipidemia, unspecified; F17.210 Nicotine dependence, cigarettes, uncomplicated; Z98.51 Tubal ligation status; Z79.4 Long term (current) use of insulin; Z88.1 Allergy status to other antibiotic agents; Z91.013 Allergy to seafood; Z86.73 Personal history of transient ischemic attack (TIA), and cerebral infarction without residual deficits
CPT/HCPCS: 36415; 70450; 72125; 73030; 73080; 80053; 81001; 82962; 83880; 85025; 96361; 96374; 96375; 96376; 99285; J2270; J2405; J1885

== ENCOUNTER 2018-04-17 09:07 | Emergency (ER) | payer MEDICAID ==
[~2018-04-17] VITALS: Ht 157.5 cm; Wt 94.3 kg
[~2018-04-17 09:07] MED LIST changes: +LOSA-49 PO; -LOSA100T27 PO
[2018-04-17 10:08] LABS: Basophils # (auto) 0.1 uL; Basophils % (auto) 0.7 % (0.0-2.0); Eosinophils # (auto) 0.2 uL; Eosinophils % (auto) 1.3 % (0.0-7.0); Hematocrit 43.7 % (36.0-46.0); Hemoglobin 14.6 g/dL (12.2-16.2); Lymphocytes # (auto) 5.1 uL; Lymphocytes % (auto) 42.1 % (10.0-50.0); Mean Corpuscular Hemoglobin 30.6 pg (28.0-32.0); Mean Corpuscular Hgb Conc. 33.5 g/dL (32.0-36.0); Mean Corpuscular Volume 91.5 fL (80.0-100.0); Monocytes % (auto) 8.3 % (0.0-12.0); Neutrophils # (auto) 5.8 uL; Neutrophils % (auto) 47.6 % (37.0-80.0); Platelet Count (auto) 315 10^3/uL (140-450); Red Blood Cells 4.78 10^6/uL (4.0-5.20); White Blood Cell 12.1 10^3/uL (4.4-10.8)
[2018-04-17] MEDS: SODIUM CHLORIDE 0.9% 1,000 ML IV ONE (10:16)
[2018-04-17] MEDS: DEXAMETHASONE SOD PHOS 4 MG/1ML SDV INJ IV ONE (10:16)
[2018-04-17 10:27] LABS: BUN/Creatinine Ratio 8.6; Magnesium 2.3 mg/dL (1.6-2.6); Potassium 3.2 mmol/L (3.5-5.1); Uric Acid 6.6 mg/dL (2.6-6.0)
[2018-04-17] MEDS: POTASSIUM EFFERVESENT TAB 25 MEQ PO ONE (11:10)
[2018-04-17] MEDS: HYDROcodone-ACET 7.5/325MG TAB PO ONE (11:10)
[2018-04-17 12:29] VITALS: BP 124/78
[2018-04-17 14:22] LABS: Urine Bacteria NONE SEEN /hpf (None Seen); Urine Blood Negative /uL (Negative); Urine Mucus FEW (None Seen); Urine Specific Gravity 1.021 (1.001-1.035); Urine WBC 2 /hpf (0 - 5)
== END 2018-04-17 13:55 | disposition home or self-care (01) ==
LOC: ER 09:07
DX: M10.9 Gout, unspecified (principal); M25.562 Pain in left knee; J44.9 Chronic obstructive pulmonary disease, unspecified; E11.9 Type 2 diabetes mellitus without complications; E78.5 Hyperlipidemia, unspecified; I10 Essential (primary) hypertension; F17.210 Nicotine dependence, cigarettes, uncomplicated; Z90.710 Acquired absence of both cervix and uterus; Z98.51 Tubal ligation status; Z86.73 Personal history of transient ischemic attack (TIA), and cerebral infarction without residual deficits
CPT/HCPCS: 36415; 73562; 80048; 81001; 82962; 83735; 84550; 85025; 96374; 99285; J1100; J7030

== ENCOUNTER 2018-09-01 13:56 | Inpatient (IN) | payer MEDICAID ==
[~2018-09-01] VITALS: Ht 157.5 cm; Wt 79.3 kg
[2018-09-01] MEDS ORDERED: SODIUM CHLORIDE 0.9% 1,000 ML IVB ONE (14:47)
[2018-09-01 16:01] LABS: Basophils # (auto) 0 uL; Basophils % (auto) 0.5 % (0.0-2.0); Eosinophils # (auto) 0.1 uL; Eosinophils % (auto) 1.9 % (0.0-7.0); Hematocrit 44.7 % (36.0-46.0); Hemoglobin 14.5 g/dL (12.2-16.2); Lymphocytes # (auto) 1.2 uL; Lymphocytes % (auto) 17.9 % (10.0-50.0); Mean Corpuscular Hemoglobin 30.7 pg (28.0-32.0); Mean Corpuscular Hgb Conc. 32.4 g/dL (32.0-36.0); Mean Corpuscular Volume 94.8 fL (80.0-100.0); Monocytes # (auto) 0.5 uL; Monocytes % (auto) 8.4 % (0.0-12.0); Neutrophils # (auto) 4.6 uL; Neutrophils % (auto) 71.3 % (37.0-80.0); Nucleated Red Blood Cells % 0.1 %; Platelet Count (auto) 285 10^3/uL (140-450); Red Blood Cells 4.72 10^6/uL (4.0-5.20); Red Cell Distribution Width 13.8 % (11.8-14.3); White Blood Cell 6.5 10^3/uL (4.4-10.8)
[2018-09-01 16:04] LABS: INR 0.9 (0.9-1.15); Partial Thromboplastin Time 27.2 sec (23.78-33.04); Prothrombin Time 9.7 sec (9.27-12.13)
[2018-09-01 16:08] LABS: Magnesium 2.7 mg/dL (1.6-2.6); Potassium 5.2 mmol/L (3.5-5.1)
[2018-09-01 16:16] LABS: BUN/Creatinine Ratio 11.4; Bilirubin, Total 0.4 mg/dL (0.2-1.0); Total Protein 7.7 g/dL (6.4-8.2)
[2018-09-01] MEDS ORDERED: SODIUM CHLORIDE 0.9% 2,000 ML IV ONE (18:45)
[2018-09-01] MEDS ORDERED: InsuLIN R (HUMAN) 100 UNITS in SODIUM CHL 0.9% 99 ML IV SCH (19:11)
[2018-09-01] MEDS ORDERED: DEXTROSE (50%) 50ML SYRG IV PRN ×2 (19:15→21:00)
[2018-09-01] MEDS ORDERED: MORPHINE SULF INJ 2 MG/ML SYRINGE 1ML IV ONE (19:15)
[2018-09-01] MEDS ORDERED: PROMETHAZINE HCL 25 MG/ML 1ML IV ONE (19:15)
[2018-09-01] MEDS ORDERED: InsuLIN REG 1unit/0.01ml Soln (100units/ml) IV ONE (19:15)
[2018-09-01] MEDS ORDERED: ACCU-CHEK COMFORT CURVE STRIP VI SCH (19:30)
[2018-09-01 19:50] LABS: Albumin 2.8 g/dL (3.4-5.0); Calcium 8.6 mg/dL (8.5-10.1); Potassium 4.6 mmol/L (3.5-5.1)
[2018-09-01 19:52] LABS: Total Protein 7.1 g/dL (6.4-8.2)
[2018-09-01 19:56] LABS: BUN/Creatinine Ratio 12.6
[2018-09-01 20:00] LABS: Bilirubin, Total 0.3 mg/dL (0.2-1.0)
[2018-09-01] MEDS ORDERED: INSULIN NPH Isophane (HUMAN) 1unit/0.01ml Susp(100units/ml) SC ONE (20:31)
[2018-09-01] MEDS ORDERED: ONDANSETRON HCL 4 MG/2 ML VIAL IV PRN (21:00)
[2018-09-01] MEDS ORDERED: TEMAZEPAM 15 MG CAP PO PRN (21:00)
[2018-09-01] MEDS ORDERED: ACETAMINOPHEN 325 MG TAB PO PRN (21:00)
[2018-09-01] MEDS ORDERED: MORPHINE SULF INJ 2 MG/ML SYRINGE 1ML IV PRN (21:00)
[2018-09-01] MEDS ORDERED: SODIUM CHLORIDE 0.9% 500 ML IV ONE (21:00)
[2018-09-01] MEDS ORDERED: NITROGLYCERIN 0.4 MG SL TAB SL PRN (21:00)
[2018-09-01] MEDS ORDERED: HYDROcodone-ACET 5/325MG TAB PO PRN (21:00)
[2018-09-01] MEDS: SODIUM CHLORIDE 0.9% 1,000 ML IV SCH (22:00)
[2018-09-01] MEDS: ATORVASTATIN 20 MG TAB PO SCH (22:20)
[2018-09-01] MEDS: FAMOTIDINE 20 MG TAB PO SCH (22:20)
[2018-09-01 23:03] LABS: Calcium 8.8 mg/dL (8.5-10.1); Potassium 3.6 mmol/L (3.5-5.1)
[2018-09-01 23:05] LABS: BUN/Creatinine Ratio 12.5
[2018-09-01] MEDS: ACCU-CHEK COMFORT CURVE STRIP VI SCH (23:57)
[2018-09-02] MEDS: InsuLIN REG 1unit/0.01ml Soln (100units/ml) SC SCH ×6 (00:01→20:28)
--- NOTE | 2018-09-02 03:14 | NUR ---
Telemetry admit from [facility] admitted to Telemetry unit after hand off tool received. Patient oriented to primary RN, unit, room, bed, and unit policies regarding patient care and visiting hours. Patient now on continuous telemetry monitoring, tele box # 44 and telemetry reading on arrival to unit is Sinus rhythm with bundle branch block at 72. Patient weighed by bedscale and encouraged to call if they need something. All questions and concerns addressed, patient verbalized understanding.
[2018-09-02 04:00] VITALS: BP 155/74
[2018-09-02] MEDS: ACCU-CHEK COMFORT CURVE STRIP VI SCH ×5 (04:00→20:28)
--- NOTE | 2018-09-02 04:35 | NUR ---
Endorsed care to CHIDI Jara. Patient in stable condition.
--- NOTE | 2018-09-02 04:40 | NUR ---
Assumed care of patient, sleeping at this time, respirations even and unlabored, will continue care
--- NOTE | 2018-09-02 05:40 | NUR ---
Noted wounds upon assuming care. Pictures taken on left middle finger, lower abdomen and right forearm for reference
[2018-09-02 05:58] LABS: Basophils # (auto) 0 uL; Basophils % (auto) 0.6 % (0.0-2.0); Eosinophils # (auto) 0.3 uL; Eosinophils % (auto) 3.7 % (0.0-7.0); Hematocrit 37.2 % (36.0-46.0); Hemoglobin 12.3 g/dL (12.2-16.2); Lymphocytes # (auto) 2.6 uL; Lymphocytes % (auto) 36.3 % (10.0-50.0); Mean Corpuscular Hemoglobin 30.6 pg (28.0-32.0); Mean Corpuscular Hgb Conc. 33.2 g/dL (32.0-36.0); Mean Corpuscular Volume 92.1 fL (80.0-100.0); Monocytes # (auto) 0.7 uL; Monocytes % (auto) 9.3 % (0.0-12.0); Neutrophils # (auto) 3.6 uL; Neutrophils % (auto) 50.1 % (37.0-80.0); Nucleated Red Blood Cells % 0.2 %; Platelet Count (auto) 256 10^3/uL (140-450); Red Blood Cells 4.03 10^6/uL (4.0-5.20); Red Cell Distribution Width 13.3 % (11.8-14.3); White Blood Cell 7.1 10^3/uL (4.4-10.8)
[2018-09-02 06:08] LABS: BUN/Creatinine Ratio 15.4; Calcium 8.3 mg/dL (8.5-10.1); Potassium 3.7 mmol/L (3.5-5.1)
--- NOTE | 2018-09-02 06:52 | NUR ---
Cleansed wound with wound cleanser, patted dry and covered with optifoam, patient tolerated well
--- NOTE | 2018-09-02 07:20 | NUR ---
RECEIVED REPORT AND CONTINUATION OF CARE,PATIENT ASLEEP,EASILY AROUSABLE,CONVERSE BUT EASILY GOES BACK TO SLEEP IN BETWEEN CONVERSATION.NO DISTRESS, NO DISCOMFORT. ASSESSMENT DONE,UPDATED WITH PLAN OF CARE AND NURSING ROUTINES,CALL LIGHT WITHIN REACH PATIENT REMINDED INSTRUCTED TO CALL FOR ASSISTANCE PATIENT VERBALIZED UNDERSTANDING.
[2018-09-02] MEDS: SODIUM CHLORIDE 0.9% 1,000 ML IV SCH ×2 (09:05→20:29)
[2018-09-02 09:35] VITALS: BP 112/56
[2018-09-02] MEDS: TRIAMTERENE/HCTZ 75/50MG TABLET PO SCH (10:09)
[2018-09-02] MEDS: FAMOTIDINE 20 MG TAB PO SCH ×2 (10:09→21:55)
[2018-09-02] MEDS: FUROSEMIDE 20 MG TAB PO SCH (10:09)
[2018-09-02] MEDS: ALLOPURINOL 100 MG TAB PO SCH (10:10)
--- NOTE | 2018-09-02 11:50 | NUR ---
WOUND CARE NOTE: Wound care in to see patient per wound care request regarding " wounds on bilateral lower abdomen, left medial finger and R forearm" that are noted present on admission. Bedside nurse took photograph of patient's skin issue upon admission for reference. Patient is 47 years old female with admitting diagnosis of Uncontrolled DM. Patient is resting in bed in Rm. 272A. She's awake, alert and oriented. She's self turn and reposition. Her current Zohaib score is 17. Skin assessment done with the assistance of another nurse, CHIDI Victoria. Noted patient's chest, abdomen, upper and lower extremities has patchy pink dry lesions. Patient states that she has history of Psoriasis and states that "but this is not psoriasis, I developed blisters, It popped and became like this" Patient also noted with dry scabbed wound to L 3rd finger and Rt forearm, area is clean and dry, left open to air. The only open wound noted is to her L abdominal fold measuring1.5x2cm no measurable depth which looks the same as on her extremities but moist , could be due to wound location at abdominal skin fold. Bedside nurse cleansed patient's abdominal wound with NS and covered with Opti foam gentle dressing per MD order. Advise bedside nurse to avoid applying any cream to patient's skin, keep clean and dry and wait for MD's order as it may irritate patient's skin more. No pressure injury related issue noted. No further wound care monitoring needed at this time. RECOMMENDATION: May consult/see wool hat forming machine tender as out patient, follow MD's recommendation, keep wound clean and dry and covered with Opti foam gentle dressing per MD order. Addendum: 09/02/18 at 1659 by Leesa Esquivel RN Amended: Links added.
--- NOTE | 2018-09-02 12:10 | NUR ---
C/O GENERALIZED PAIN,REFUSED TO TAKE NORCO,REQUESTING TO GET MORPHINE,STATED NORCO NOT WORKING FOR GENERALIZED PAIN.REASSURED WILL PAGED TO INFORM.
--- NOTE | 2018-09-02 12:15 | NUR ---
ALFONZO AND SPOKE TO DR. HERRERA INFORMED OF PATIENT COMPLAINT AND REFUSING TO TAKE NORCO BUT REQUESTING TO GET MORPHINE INSTEAD. RECEIVED ORDER SEE ORDER WRITTEN.
--- NOTE | 2018-09-02 12:35 | NUR ---
PATIENT WANTED TO GO OUT WITH FAMILY TO SMOKE,REQUESTING AMA/INFORMED CONSENT PAPER TO SIGN,PATIENT SIGNED INFORMED CONSENT.EXPLAIN RISK OF ANY INJURY,COMPLICATION AND DELAYED OF TREATMENTS THAT MAY RESULT OF LEAVING THE UNIT TO SMOKE.PATIENT VERBALIZED UNDERSTANDING.
--- NOTE | 2018-09-02 12:40 | NUR ---
NOTED FAMILY EATING PATIENT LUNCH TRAY,PATIENT AND FAMILY EDUCATED RE PATIENT BEING DIABETIC AND RECEIVING INSULIN AND NEEDING HER TRAY AND TO EAT AFTER RECEIVING INSULIN.
[2018-09-02] MEDS: LOSARTAN POTASSIUM 50 MG TAB PO SCH (12:48)
[2018-09-02 13:00] VITALS: BP 156/85
--- NOTE | 2018-09-02 15:54 | NUR ---
MD VISIT DR. HERRERA HERE TO SEE AND EXAMINED PATIENT,PATIENT C/O HAVING DIARRHEA,RECEIVED ORDER TO CHECK STOOL FOR C DIFF.
[2018-09-02 17:11] VITALS: BP 132/68
[2018-09-02] MEDS: MORPHINE SULF INJ 2 MG/ML SYRINGE 1ML IV PRN ×2 (17:39→21:54)
--- NOTE | 2018-09-02 19:18 | NUR ---
REPORT GIVEN TO TAWNY SALINAS SHIFT RN,NO DISTRESS NO DISCOMFORT
--- NOTE | 2018-09-02 19:22 | NUR ---
Opening Shift Note Assumed care of patient, awake and alert x 4. No S/S of distress/SOB. Bed is in lowest position and locked. Call light within reach. Board updated. Tele box number matches monitor and leads are in correct placement. Instructed on POC and to call for assist PRN, will continue to monitor for changes Q1hr and PRN.
[2018-09-02] MEDS: ATORVASTATIN 20 MG TAB PO SCH (21:55)
[2018-09-02 22:00] VITALS: BP 149/82
--- NOTE | 2018-09-02 22:12 | NUR ---
Patient has her own food at bedside. Patient was made aware that while in the hospital she should follow dietary restrictions to ensure glucose control. Patient acknowledged this but states that she [place] snot like the food we have here and will eat her own.
[2018-09-03] MEDS: ACCU-CHEK COMFORT CURVE STRIP VI SCH ×5 (00:26→12:00)
[2018-09-03] MEDS: MORPHINE SULF INJ 2 MG/ML SYRINGE 1ML IV PRN ×2 (02:12→09:48)
[2018-09-03] MEDS: InsuLIN REG 1unit/0.01ml Soln (100units/ml) SC SCH ×4 (04:31→12:34)
[2018-09-03 04:57] VITALS: BP 109/69
--- NOTE | 2018-09-03 07:15 | NUR ---
RECEIVED REPORT AND CONTINUATION OF CARE,.NO DISTRESS, NO DISCOMFORT. ASSESSMENT DONE,UPDATED WITH PLAN OF CARE AND NURSING ROUTINES,CALL LIGHT WITHIN REACH PATIENT REMINDED INSTRUCTED TO CALL FOR ASSISTANCE PATIENT VERBALIZED UNDERSTANDING
[2018-09-03] MEDS: SODIUM CHLORIDE 0.9% 1,000 ML IV SCH (07:21)
--- NOTE | 2018-09-03 08:00 | NUR ---
REMINDED AND INSTRUCTED TO COLLECT STOOL FOR STUDY, SPECIMEN COLLECTION BOTTLE AVAILABLE AT BEDSIDE.PATIENT VERBALIZED UNDERSTANDING.
[2018-09-03 08:30] VITALS: BP 147/74
[2018-09-03] MEDS: LOSARTAN POTASSIUM 50 MG TAB PO SCH (09:49)
[2018-09-03] MEDS: ALLOPURINOL 100 MG TAB PO SCH (09:50)
[2018-09-03] MEDS: FUROSEMIDE 20 MG TAB PO SCH (09:51)
[2018-09-03] MEDS: FAMOTIDINE 20 MG TAB PO SCH (09:51)
[2018-09-03] MEDS: TRIAMTERENE/HCTZ 75/50MG TABLET PO SCH (09:52)
--- NOTE | 2018-09-03 10:00 | NUR ---
OUT TO SMOKE (HAS AMA TO SMOKE)
[2018-09-03 12:30] VITALS: BP 136/75
--- NOTE | 2018-09-03 15:30 | NUR ---
MD VISIT DR. HERRERA HERE TO SEE AND EXAMINED PATIENT, RECEIVED ORDER TO DISCHARGE PATIENT
[2018-09-03 16:59] VITALS: BP 141/75
[2018-09-03 17:05] VITALS: BP 141/75
--- NOTE | 2018-09-03 17:30 | NUR ---
Discharge instructions given as ordered. Encourage to follow up with PMD as instructed. All questions and concerns addressed. Patient verbalized understanding. Medication reconciliation form completed and copy given to patient. IV removed with catheter intact, pressure dressing applied. Telemetry unit returned to [facility]. Patient taken to vehicle ambulatory per patient preference.with all personal belongings, accompanied by staff and family member. No distress noted at time of departure.
== END 2018-09-03 17:30 | disposition home or self-care (01) | DRG 420 ==
LOC: ER 13:56 → TELE 21:01 → TELE-WESTW 09-02 03:15
PROVIDERS: ADMIT Nurse Practitioner; ATTEND Internal Medicine
DX: E11.65 Type 2 diabetes mellitus with hyperglycemia (principal); E44.0 Moderate protein-calorie malnutrition; E11.21 Type 2 diabetes mellitus with diabetic nephropathy; E87.5 Hyperkalemia; E66.01 Morbid (severe) obesity due to excess calories; R19.7 Diarrhea, unspecified; E87.1 Hypo-osmolality and hyponatremia; F41.9 Anxiety disorder, unspecified; I45.10 Unspecified right bundle-branch block; F20.9 Schizophrenia, unspecified; E78.5 Hyperlipidemia, unspecified; E86.0 Dehydration; F17.210 Nicotine dependence, cigarettes, uncomplicated; F31.9 Bipolar disorder, unspecified; J44.9 Chronic obstructive pulmonary disease, unspecified; M10.9 Gout, unspecified; Z79.4 Long term (current) use of insulin; Z80.7 Family history of other malignant neoplasms of lymphoid, hematopoietic and related tissues; Z82.49 Family history of ischemic heart disease and other diseases of the circulatory system; Z83.3 Family history of diabetes mellitus; Z86.73 Personal history of transient ischemic attack (TIA), and cerebral infarction without residual deficits; Z90.710 Acquired absence of both cervix and uterus; Z88.8 Allergy status to other drugs, medicaments and biological substances; Z88.7 Allergy status to serum and vaccine; Z91.041 Radiographic dye allergy status; Z91.013 Allergy to seafood; Z79.899 Other long term (current) drug therapy; Z98.51 Tubal ligation status; Z68.32 Body mass index [BMI] 32.0-32.9, adult
CPT/HCPCS: 36415; 71045; 80048; 80053; 82150; 82962; 83690; 83735; 85025; 85610; 85730; 94761; 96361; 96365; 96375; 99291; G0378; J1815

== ENCOUNTER 2018-09-23 10:39 | Inpatient (IN) | payer MEDICAID ==
[~2018-09-23] VITALS: Ht 157.5 cm; Wt 93.0 kg
[~2018-09-23 10:39] MED LIST changes: -AZIT250T8 PO
[2018-09-23] MEDS ORDERED: SODIUM CHLORIDE 0.9% 1,000 ML IV ONE ×2 (10:52→14:45)
[2018-09-23] MEDS ORDERED: MORPHINE SULFATE 4 MG/ML SYR/VIAL IV ONE (11:15)
[2018-09-23] MEDS ORDERED: ONDANSETRON HCL 4 MG/2 ML VIAL IV ONE (11:15)
[2018-09-23 11:48] LABS: Basophils # (auto) 0.1 uL; Basophils % (auto) 0.5 % (0.0-2.0); Eosinophils # (auto) 0.1 uL; Eosinophils % (auto) 1.1 % (0.0-7.0); Hematocrit 45.5 % (36.0-46.0); Hemoglobin 14.8 g/dL (12.2-16.2); Lymphocytes # (auto) 2.2 uL; Lymphocytes % (auto) 21.5 % (10.0-50.0); Mean Corpuscular Hemoglobin 30.1 pg (28.0-32.0); Mean Corpuscular Hgb Conc. 32.5 g/dL (32.0-36.0); Mean Corpuscular Volume 92.5 fL (80.0-100.0); Monocytes # (auto) 0.8 uL; Monocytes % (auto) 7.4 % (0.0-12.0); Neutrophils # (auto) 7.2 uL; Neutrophils % (auto) 69.5 % (37.0-80.0); Nucleated Red Blood Cells % 0.1 %; Platelet Count (auto) 307 10^3/uL (140-450); Red Blood Cells 4.91 10^6/uL (4.0-5.20); White Blood Cell 10.4 10^3/uL (4.4-10.8)
[2018-09-23] MEDS ORDERED: InsuLIN REG 1unit/0.01ml Soln (100units/ml) IV ONE (12:00)
[2018-09-23 12:07] LABS: Albumin 3.6 g/dL (3.4-5.0); Potassium 4.7 mmol/L (3.5-5.1)
[2018-09-23 12:10] LABS: INR 0.93 (0.9-1.15); Partial Thromboplastin Time 25.1 sec (23.78-33.04)
[2018-09-23 12:17] LABS: BUN/Creatinine Ratio 17.5; Bilirubin, Total 0.6 mg/dL (0.2-1.0); Total Protein 8.5 g/dL (6.4-8.2)
[2018-09-23] MEDS ORDERED: InsuLIN R (HUMAN) 100 UNITS in SODIUM CHL 0.9% 99 ML IV SCH (13:12)
[2018-09-23] MEDS ORDERED: DEXTROSE (50%) 50ML SYRG IV PRN ×2 (13:15→14:45)
[2018-09-23] MEDS ORDERED: ACCU-CHEK COMFORT CURVE STRIP VI SCH (13:30)
[2018-09-23] MEDS ORDERED: INSULIN LANTUS (GLARGINE) 1 /0.01ml (100units/ml) SC ONE (14:45)
[2018-09-23] MEDS ORDERED: PANTOPRAZOLE 40 MG/10 ML VIAL IV ONE (14:45)
[2018-09-23] MEDS ORDERED: ONDANSETRON HCL 4 MG/2 ML VIAL IV PRN (14:45)
[2018-09-23] MEDS ORDERED: HYDROcodone-ACET 5/325MG TAB PO PRN (14:45)
[2018-09-23] MEDS ORDERED: hydrOXYzine 25 MG TAB or CAP PO PRN (15:15)
[2018-09-23] MEDS: SODIUM CHLORIDE 0.9% 1,000 ML IV SCH ×2 (15:39→21:25)
[2018-09-23] MEDS: hydrOXYzine 25 MG TAB or CAP PO PRN ×2 (15:39→21:31)
[2018-09-23] MEDS: InsuLIN REG 1unit/0.01ml Soln (100units/ml) SC SCH ×2 (16:41→20:00)
[2018-09-23] MEDS: ACCU-CHEK COMFORT CURVE STRIP VI SCH ×2 (16:41→20:00)
[2018-09-23 20:00] VITALS: BP 127/65
[2018-09-23] MEDS: MORPHINE SULFATE 4 MG/ML SYR/VIAL IV PRN (20:30)
[2018-09-23 21:00] VITALS: BP 127/65
[2018-09-23] MEDS: PANTOPRAZOLE 40 MG/10 ML VIAL IV SCH (21:11)
[2018-09-23] MEDS: GABAPENTIN 300 MG CAP PO SCH (21:11)
[2018-09-23 22:00] VITALS: BP 185/95
[2018-09-23] MEDS ORDERED: INSULIN LANTUS (GLARGINE) 1 /0.01ml (100units/ml) SC SCH (22:00)
[2018-09-23 23:00] VITALS: BP 127/65
[2018-09-24] MEDS: ACCU-CHEK COMFORT CURVE STRIP VI SCH ×5 (04:00→16:00)
[2018-09-24] MEDS: InsuLIN REG 1unit/0.01ml Soln (100units/ml) SC SCH ×5 (04:00→16:00)
[2018-09-24 05:00] VITALS: BP 107/59
[2018-09-24 05:28] LABS: Basophils # (auto) 0 uL; Basophils % (auto) 0.5 % (0.0-2.0); Eosinophils # (auto) 0.2 uL; Hematocrit 37.8 % (36.0-46.0); Lymphocytes % (auto) 35.1 % (10.0-50.0); Mean Corpuscular Hgb Conc. 34.3 g/dL (32.0-36.0); Mean Corpuscular Volume 90.1 fL (80.0-100.0); Monocytes # (auto) 0.8 uL; Monocytes % (auto) 8.9 % (0.0-12.0); Neutrophils # (auto) 4.5 uL; Neutrophils % (auto) 53.5 % (37.0-80.0); Platelet Count (auto) 253 10^3/uL (140-450); Red Blood Cells 4.19 10^6/uL (4.0-5.20); Red Cell Distribution Width 13.6 % (11.8-14.3); White Blood Cell 8.4 10^3/uL (4.4-10.8)
[2018-09-24 05:45] LABS: Albumin 2.8 g/dL (3.4-5.0); Calcium 8.4 mg/dL (8.5-10.1); Magnesium 2.2 mg/dL (1.6-2.6); Potassium 3.7 mmol/L (3.5-5.1)
[2018-09-24 05:50] LABS: BUN/Creatinine Ratio 17.8; Bilirubin, Total 0.4 mg/dL (0.2-1.0); Total Protein 6.6 g/dL (6.4-8.2)
[2018-09-24] MEDS: GABAPENTIN 300 MG CAP PO SCH ×2 (06:00→14:40)
[2018-09-24] MEDS: SODIUM CHLORIDE 0.9% 1,000 ML IV SCH ×3 (06:29→17:25)
[2018-09-24] MEDS: hydrOXYzine 25 MG TAB or CAP PO PRN ×2 (07:45→14:40)
[2018-09-24 08:00] VITALS: BP 129/86
[2018-09-24] MEDS ORDERED: SODIUM CHLORIDE LOCK 10 ML ONE (09:12)
[2018-09-24] MEDS ORDERED: LIDOCAINE VISCOUS 2% 15ML UD ONE (09:12)
[2018-09-24] MEDS ORDERED: diphenhdrAMINE HCL 50 MG/1 ML VL ONE (09:12)
[2018-09-24] MEDS: PANTOPRAZOLE 40 MG/10 ML VIAL IV SCH (09:32)
[2018-09-24 09:44] VITALS: BP 129/86
[2018-09-24] MEDS ORDERED: PANTOPRAZOLE 40 MG/10 ML VIAL IV SCH (10:00)
[2018-09-24] MEDS ORDERED: ALLOPURINOL 100 MG TAB PO SCH (10:00)
[2018-09-24] MEDS: MIDAZOLAM HCL 5 MG/ML-1ML VIAL ONE ×2 (12:17→12:20)
[2018-09-24] MEDS: fentaNYL CITRATE 100 MCG/2 ML VL ONE ×2 (12:17→12:20)
[2018-09-24 12:54] VITALS: BP 144/78
[2018-09-24] MEDS: MORPHINE SULFATE 4 MG/ML SYR/VIAL IV PRN (14:41)
[2018-09-25] MEDS ORDERED: PANTOPRAZOLE 40 MG TAB PO SCH (10:00)
== END 2018-09-24 17:40 | disposition home or self-care (01) | DRG 241 ==
LOC: ER 10:39 → OVERFLOW 14:36 → CENTRAL 18:25
PROVIDERS: ADMIT Internal Medicine; ATTEND Internal Medicine
PROC: 0DB68ZX Excision of Stomach, Via Natural or Artificial Opening Endoscopic, Diagnostic (ICD-10-PCS; principal; 2018-09-24 12:12)
DX: K29.61 Other gastritis with bleeding (principal); N17.0 Acute kidney failure with tubular necrosis; E11.10 Type 2 diabetes mellitus with ketoacidosis without coma; E87.1 Hypo-osmolality and hyponatremia; E66.01 Morbid (severe) obesity due to excess calories; I10 Essential (primary) hypertension; E78.5 Hyperlipidemia, unspecified; M10.9 Gout, unspecified; K20.9 Esophagitis, unspecified; F17.210 Nicotine dependence, cigarettes, uncomplicated; J44.9 Chronic obstructive pulmonary disease, unspecified; F32.9 Major depressive disorder, single episode, unspecified; B96.81 Helicobacter pylori [H. pylori] as the cause of diseases classified elsewhere; E86.0 Dehydration; F41.9 Anxiety disorder, unspecified; Z68.37 Body mass index [BMI] 37.0-37.9, adult; Z88.8 Allergy status to other drugs, medicaments and biological substances; Z88.1 Allergy status to other antibiotic agents; Z91.013 Allergy to seafood; Z91.018 Allergy to other foods; Z79.4 Long term (current) use of insulin; Z83.3 Family history of diabetes mellitus; Z86.73 Personal history of transient ischemic attack (TIA), and cerebral infarction without residual deficits; Z90.710 Acquired absence of both cervix and uterus; Z98.51 Tubal ligation status
CPT/HCPCS: 36415; 36600; 74022; 74176; 80053; 82010; 82805; 82962; 83036; 83690; 83735; 84100; 84484; 85025; 85610; 85730; 87081; 94761; 96361; 96372; 96374; 96375; C9113; G0378; J1815; J2250; J2405

== ENCOUNTER 2018-11-20 14:47 | Inpatient (IN) | payer MEDICAID | END 2018-11-29 15:00 | disposition home or self-care (01) | LOC: ER 14:47 → TELE 19:00 → TELE-CENTR 20:35 | PROC: 0H98XZX Drainage of Buttock Skin, External Approach, Diagnostic (ICD-10-PCS; principal; 2018-11-22 10:44) | DX: A41.9 Sepsis, unspecified organism (principal); E43 Unspecified severe protein-calorie malnutrition; E11.10 Type 2 diabetes mellitus with ketoacidosis without coma; E11.22 Type 2 diabetes mellitus with diabetic chronic kidney disease; E86.0 Dehydration; E11.65 Type 2 diabetes mellitus with hyperglycemia; N18.3 Chronic kidney disease, stage 3 (moderate); I12.9 Hypertensive chronic kidney disease with stage 1 through stage 4 chronic kidney disease, or unspecified chronic kidney disease; D53.9 Nutritional anemia, unspecified; E66.9 Obesity, unspecified; Z68.37 Body mass index [BMI] 37.0-37.9, adult; L02.31 Cutaneous abscess of buttock; L02.215 Cutaneous abscess of perineum; T85.628A Displacement of other specified internal prosthetic devices, implants and grafts, initial encounter; D63.8 Anemia in other chronic diseases classified elsewhere ==

== ENCOUNTER 2019-01-31 23:04 | Inpatient (IN) | payer MEDICAID ==
[~2019-01-31] VITALS: Ht 157.5 cm; Wt 79.0 kg
[~2019-01-31 23:04] MED LIST changes: +CLIN150C7 PO; +FLUC100T34 PO; +HYOS0.1264 PO; +LEVO500T21 PO; +LOSA-39 PO; -LOSA-49 PO; +MET500T PO; +SUCR1TAB PO; -TRIA25CA
[2019-01-31] MEDS ORDERED: SODIUM CHLORIDE 0.9% 1,000 ML IV ONE (23:30)
[2019-01-31] MEDS ORDERED: InsuLIN REG 1unit/0.01ml Soln (100units/ml) IV ONE (23:30)
[2019-01-31 23:55] LABS: Basophils # (auto) 0 uL; Basophils % (auto) 0.4 % (0.0-2.0); Eosinophils # (auto) 0.1 uL; Eosinophils % (auto) 0.9 % (0.0-7.0); Hemoglobin 14.2 g/dL (12.2-16.2); Lymphocytes % (auto) 30.8 % (10.0-50.0); Mean Corpuscular Hemoglobin 31.2 pg (28.0-32.0); Mean Corpuscular Hgb Conc. 32.2 g/dL (32.0-36.0); Mean Corpuscular Volume 96.7 fL (80.0-100.0); Monocytes # (auto) 0.6 uL; Monocytes % (auto) 9.7 % (0.0-12.0); Neutrophils # (auto) 3.9 uL; Neutrophils % (auto) 58.2 % (37.0-80.0); Nucleated Red Blood Cells % 0.1 %; Platelet Count (auto) 201 10^3/uL (140-450); Red Blood Cells 4.55 10^6/uL (4.0-5.20); Red Cell Distribution Width 13.8 % (11.8-14.3); White Blood Cell 6.6 10^3/uL (4.4-10.8)
[2019-02-01 00:13] LABS: Albumin 3.3 g/dL (3.4-5.0); Calcium 9.2 mg/dL (8.5-10.1); Potassium 3.9 mmol/L (3.5-5.1)
[2019-02-01 00:18] LABS: Lactic Acid w/Reflex 2.9 mmol/L (0.4-2.0)
[2019-02-01 00:21] LABS: Bilirubin, Total 0.4 mg/dL (0.2-1.0)
[2019-02-01 00:45] LABS: BUN/Creatinine Ratio 6.7
[2019-02-01] MEDS ORDERED: InsuLIN R (HUMAN) 100 UNITS in SODIUM CHL 0.9% 99 ML IV SCH ×2 (00:46→01:07)
[2019-02-01] MEDS ORDERED: INSULIN NPH Isophane (HUMAN) 1unit/0.01ml Susp(100units/ml) SC ONE (00:55)
[2019-02-01] MEDS ORDERED: SOD CHL 0.9%/ KCL 20MEQ 1,000 ML IV ONE (01:00)
[2019-02-01] MEDS ORDERED: DEXTROSE (50%) 50ML SYRG IV PRN ×3 (01:00→08:00)
[2019-02-01] MEDS ORDERED: SODIUM CHLORIDE 0.9% 1,000 ML IV ONE (01:00)
[2019-02-01] MEDS ORDERED: ACCU-CHEK COMFORT CURVE STRIP VI SCH (01:30)
[2019-02-01 01:52] LABS: Magnesium 2.2 mg/dL (1.6-2.6)
[2019-02-01] MEDS: ACCU-CHEK COMFORT CURVE STRIP VI SCH ×8 (02:00→21:41)
[2019-02-01 02:07] LABS: Urine WBC None Seen /hpf (0 - 5)
[2019-02-01 02:11] LABS: Urine Bacteria NONE SEEN /hpf (None Seen); Urine Blood Negative /uL (Negative); Urine Specific Gravity 1.023 (1.001-1.035)
[2019-02-01 02:13] LABS: BUN/Creatinine Ratio 6.9; Calcium 8.8 mg/dL (8.5-10.1); Potassium 3.5 mmol/L (3.5-5.1)
[2019-02-01] MEDS ORDERED: cefTRIAXone 1GM/50ML D5W 50 ML IV ONE (02:45)
[2019-02-01] MEDS ORDERED: VANCOMYCIN 1GM/250ML 250 ML IV ONE (02:45)
[2019-02-01] MEDS ORDERED: ONDANSETRON HCL 4 MG/2 ML VIAL IV ONE (04:45)
[2019-02-01] MEDS ORDERED: MORPHINE SULFATE 4 MG/ML SYR/VIAL IV ONE (04:45)
[2019-02-01] MEDS ORDERED: SODIUM CHLORIDE 0.9% 1,000 ML IV SCH (04:46)
[2019-02-01] MEDS ORDERED: ACETAMINOPHEN 325 MG TAB PO PRN (05:30)
[2019-02-01] MEDS ORDERED: ONDANSETRON HCL 4 MG/2 ML VIAL IV PRN (05:30)
[2019-02-01] MEDS ORDERED: TEMAZEPAM 15 MG CAP PO PRN (05:45)
[2019-02-01] MEDS ORDERED: ALBUTEROL SULF 2.5 MG/0.5ML(0.5%) NEB SOLN NEB PRN (05:45)
[2019-02-01] MEDS: SODIUM CHLORIDE 0.9% 1,000 ML IV SCH ×3 (06:52→21:42)
[2019-02-01 07:11] LABS: Basophils # (auto) 0 uL; Basophils % (auto) 0.3 % (0.0-2.0); Eosinophils # (auto) 0.1 uL; Eosinophils % (auto) 1.5 % (0.0-7.0); Hematocrit 36.8 % (36.0-46.0); Hemoglobin 12.5 g/dL (12.2-16.2); Lymphocytes # (auto) 2.9 uL; Lymphocytes % (auto) 36.9 % (10.0-50.0); Mean Corpuscular Hgb Conc. 33.8 g/dL (32.0-36.0); Mean Corpuscular Volume 91.7 fL (80.0-100.0); Monocytes # (auto) 0.7 uL; Monocytes % (auto) 9.6 % (0.0-12.0); Neutrophils % (auto) 51.7 % (37.0-80.0); Nucleated Red Blood Cells % 0.1 %; Platelet Count (auto) 186 10^3/uL (140-450); Red Blood Cells 4.02 10^6/uL (4.0-5.20); Red Cell Distribution Width 13.6 % (11.8-14.3); White Blood Cell 7.7 10^3/uL (4.4-10.8)
[2019-02-01 07:31] LABS: BUN/Creatinine Ratio 10.1; Calcium 8.5 mg/dL (8.5-10.1); Potassium 3.4 mmol/L (3.5-5.1)
[2019-02-01] MEDS: GABAPENTIN 300 MG CAP PO SCH ×3 (07:59→21:42)
[2019-02-01] MEDS ORDERED: POTASSIUM CHL 20 Meq TABLET PO ONE (08:15)
[2019-02-01] MEDS: InsuLIN REG 1unit/0.01ml Soln (100units/ml) SC SCH ×4 (09:00→21:41)
[2019-02-01] MEDS: PANTOPRAZOLE 40 MG TAB PO SCH (09:00)
[2019-02-01] MEDS: LOSARTAN POTASSIUM 50 MG TAB PO SCH (09:35)
--- NOTE | 2019-02-01 11:00 | NUR ---
Telemetry admit from [facility] admitted to telemetry unit. Verbal reporst received from CHIDI Victoria. Patient oriented to Luisa Orozco RN primary RN, unit, room, bed, and unit policies regarding patient care and visiting hours. Patient now on continuous telemetry monitoring, tele box #23. Telemetry reading on arrival to unit is NSR at 91. Pt 02 saturation showing 91% on room air. Pt weighed by bedscale and encouraged to call if they need something. All questions and concerns addressed, patient verbalized understanding. IV's to right and left hand patent, sites clear. Pt denies pain or discomfort at this time. V.S.S., resp even, unlabored. Note:
--- NOTE | 2019-02-01 11:30 | NUR ---
FOSTER DALTON states they want to leave the floor Against Medical Advice (AMA) to go outside and smoke. Patient encouraged to stay on floor and not smoke. Patient verbalized understanding and signed required AMA form. Pt in wheelchair, accompanied by sister. Pt advices not to leave floor unassisted due to medical condition and high risk of falling. Pt verbalizes understanding.
[2019-02-01] MEDS: MORPHINE SULF INJ 2 MG/ML SYRINGE 1ML IV PRN (12:35)
[2019-02-01 13:24] LABS: BUN/Creatinine Ratio 8.7; Potassium 3.9 mmol/L (3.5-5.1)
[2019-02-01 13:28] LABS: Calcium 8.3 mg/dL (8.5-10.1)
[2019-02-01 16:31] VITALS: BP 100/63
[2019-02-01 16:52] LABS: Alcohol, Urine < 3.0 mg/dL (0-5); Amphetamine Screen, Urine NEGATIVE (NEGATIVE); Barbiturate Scree,Urine NEGATIVE (NEGATIVE); Benzodiazephine Screen, Urine NEGATIVE (NEGATIVE); Cannabinoid Screen, Urine NEGATIVE (NEGATIVE); Cocaine Screen, Urine NEGATIVE (NEGATIVE); Opiate Scree,Urine POSITIVE (NEGATIVE); Phencyclidine Screen, Urine NEGATIVE (NEGATIVE)
--- NOTE | 2019-02-01 18:00 | NUR ---
Pt showing no change from initial assessment at time of admission. Pt is noted to go out to smoke, accompanied by family members, several times during this shift. Pt medicated with Morphine, times one, for c/o generalized pain, with good effectiveness. No other c/o pain or discomfort.
--- NOTE | 2019-02-01 19:15 | NUR ---
Opening Shift Note Assumed care of patient, awake and alert. No S/S of distress/SOB or pain. Instructed on POC and to call for assist PRN, will continue to monitor for changes Q1hr and PRN. Side rails up x2. Bed locked in lowest position. Call light within reach. Family at bedside.
[2019-02-01 19:46] VITALS: BP 100/63
[2019-02-01 21:00] VITALS: BP 130/73
[2019-02-01] MEDS ORDERED: INSULIN LANTUS (GLARGINE) 1 /0.01ml (100units/ml) SC SCH (22:00)
[2019-02-02 04:30] VITALS: BP 136/75
[2019-02-02] MEDS: GABAPENTIN 300 MG CAP PO SCH (06:00)
[2019-02-02] MEDS: SODIUM CHLORIDE 0.9% 1,000 ML IV SCH ×2 (06:35→09:42)
[2019-02-02] MEDS: PANTOPRAZOLE 40 MG TAB PO SCH (06:35)
[2019-02-02] MEDS: ACCU-CHEK COMFORT CURVE STRIP VI SCH ×2 (06:36→11:53)
[2019-02-02] MEDS: InsuLIN REG 1unit/0.01ml Soln (100units/ml) SC SCH ×2 (06:36→11:53)
--- NOTE | 2019-02-02 06:44 | NUR ---
PT ASSESSED FOR PRN HHN TX. PT IS ON ROOM AIR, SPO2 97%, HR 85, RR 18. NO S/S OF RESPIRATORY DISTRESS, PT AWARE TO HAVE RT PAGED IF SOB OR TX INDICATED. WILL CONTINUE TO MONITOR.
--- NOTE | 2019-02-02 07:06 | NUR ---
Endorsed care to day shift RN.
[2019-02-02 08:00] VITALS: BP 183/93
--- NOTE | 2019-02-02 08:15 | NUR ---
Pt requesting "pain medication". Stating "I hurt all over".
[2019-02-02] MEDS: MORPHINE SULF INJ 2 MG/ML SYRINGE 1ML IV PRN (08:26)
--- NOTE | 2019-02-02 08:30 | NUR ---
Morphine 2 mg administered IV for c/o generalized pain. Pt is remains with eyes closed during administration of Morphine. Resp even, unlabored.
[2019-02-02 09:00] VITALS: BP 170/96
[2019-02-02] MEDS: LOSARTAN POTASSIUM 50 MG TAB PO SCH (09:41)
[2019-02-02 11:05] VITALS: BP 146/72
--- NOTE | 2019-02-02 12:00 | NUR ---
Family members at bedside. Pt very pleasant and cooperative. Pt denies pain or discomfort at this time.
[2019-02-02 13:00] VITALS: BP 132/78
--- NOTE | 2019-02-02 13:45 | NUR ---
Discharge instructions given as ordered. Encourage to follow up with PMD as instructed. All questions and concerns addressed. Patient verbalized understanding. Medication reconciliation form completed and copy given to patient. IV's to right and left hands removed with catheter intact, pressure dressing applied. Telemetry unit returned to ICU. Patient taken to vehicle via wheelchair with all personal belongings, accompanied by staff and family member. No distress noted at time of departure.
== END 2019-02-02 13:45 | disposition home or self-care (01) | DRG 420 ==
LOC: ER 23:04 → OVERFLOW 23:05 → TELE-EAST 02-01 10:46
PROVIDERS: ADMIT Nurse Practitioner Family; ATTEND Hospitalist
DX: E11.65 Type 2 diabetes mellitus with hyperglycemia (principal); E11.21 Type 2 diabetes mellitus with diabetic nephropathy; E11.40 Type 2 diabetes mellitus with diabetic neuropathy, unspecified; I15.8 Other secondary hypertension; I10 Essential (primary) hypertension; E11.319 Type 2 diabetes mellitus with unspecified diabetic retinopathy without macular edema; E87.1 Hypo-osmolality and hyponatremia; F41.9 Anxiety disorder, unspecified; E78.00 Pure hypercholesterolemia, unspecified; E78.5 Hyperlipidemia, unspecified; J44.9 Chronic obstructive pulmonary disease, unspecified; E66.9 Obesity, unspecified; M10.9 Gout, unspecified; F17.210 Nicotine dependence, cigarettes, uncomplicated; F32.9 Major depressive disorder, single episode, unspecified; Z82.49 Family history of ischemic heart disease and other diseases of the circulatory system; Z79.4 Long term (current) use of insulin; Z79.899 Other long term (current) drug therapy; Z80.41 Family history of malignant neoplasm of ovary; Z80.7 Family history of other malignant neoplasms of lymphoid, hematopoietic and related tissues; Z83.3 Family history of diabetes mellitus; Z86.73 Personal history of transient ischemic attack (TIA), and cerebral infarction without residual deficits; Z90.710 Acquired absence of both cervix and uterus; Z98.51 Tubal ligation status; Z82.5 Family history of asthma and other chronic lower respiratory diseases; Z68.31 Body mass index [BMI] 31.0-31.9, adult
CPT/HCPCS: 36415; 36600; 51702; 71045; 80048; 80053; 80307; 81001; 82010; 82805; 82962; 83036; 83605; 83735; 83930; 84100; 84443; 84484; 85025; 87040; 87081; 93005; 96365; 96366; 96368; 96375; 96376; G0378; J0696; J1815; J2405

== ENCOUNTER 2019-03-25 13:31 | Inpatient (IN) | payer MEDICAID ==
[~2019-03-25] VITALS: Ht 157.5 cm; Wt 84.0 kg
[~2019-03-25 13:31] MED LIST changes: -CLIN150C7 PO; -FLUC100T34 PO; -LEVO500T21 PO; -MET500T PO
[2019-03-25] MEDS ORDERED: SODIUM CHLORIDE 0.9% 1,000 ML IV ONE ×2 (14:43→16:45)
[2019-03-25] MEDS ORDERED: MORPHINE SULFATE 4 MG/ML SYR/VIAL IV ONE (14:45)
[2019-03-25] MEDS ORDERED: ONDANSETRON HCL 4 MG/2 ML VIAL IV ONE (14:45)
[2019-03-25 15:36] LABS: Albumin 3.2 g/dL (3.4-5.0); BUN/Creatinine Ratio 12.9; Calcium 8.9 mg/dL (8.5-10.1)
[2019-03-25 15:39] LABS: Bilirubin, Total 0.8 mg/dL (0.2-1.0); Total Protein 8.8 g/dL (6.4-8.2)
[2019-03-25 16:29] LABS: Basophils # (auto) 0.1 uL; Basophils % (auto) 0.6 % (0.0-2.0); Eosinophils # (auto) 0.1 uL; Eosinophils % (auto) 0.6 % (0.0-7.0); Hematocrit 43.1 % (36.0-46.0); Hemoglobin 14.2 g/dL (12.2-16.2); Lymphocytes # (auto) 1.9 uL; Lymphocytes % (auto) 20.5 % (10.0-50.0); Mean Corpuscular Hemoglobin 30.7 pg (28.0-32.0); Mean Corpuscular Hgb Conc. 32.9 g/dL (32.0-36.0); Mean Corpuscular Volume 93.3 fL (80.0-100.0); Monocytes % (auto) 10.2 % (0.0-12.0); Neutrophils # (auto) 6.4 uL; Neutrophils % (auto) 68.1 % (37.0-80.0); Nucleated Red Blood Cells % 0.1 %; Platelet Count (auto) 170 10^3/uL (140-450); Red Blood Cells 4.62 10^6/uL (4.0-5.20); Red Cell Distribution Width 13.4 % (11.8-14.3); White Blood Cell 9.4 10^3/uL (4.4-10.8)
[2019-03-25] MEDS ORDERED: InsuLIN REG 1unit/0.01ml Soln (100units/ml) IV ONE (16:45)
[2019-03-25 17:41] LABS: Urine Bacteria FEW /hpf (None Seen); Urine Blood Negative /uL (Negative); Urine Specific Gravity 1.028 (1.001-1.035); Urine WBC <1 /hpf (0 - 5)
[2019-03-25] MEDS ORDERED: LABETALOL HCL 5 MG/ML ML 20ML VIAL IV PRN (18:45)
[2019-03-25] MEDS ORDERED: SODIUM CHLORIDE 0.9% 2,000 ML IV ONE (18:45)
[2019-03-25] MEDS ORDERED: NITROGLYCERIN 0.4 MG SL TAB SL PRN (18:45)
[2019-03-25] MEDS ORDERED: VANCOMYCIN PER PHARMACY 0 MG IV SCH (18:45)
[2019-03-25] MEDS ORDERED: DEXTROSE (50%) 50ML SYRG IV PRN ×2 (18:45)
[2019-03-25] MEDS ORDERED: cefTRIAXone 1GM/50ML D5W 50 ML IV ONE (18:45)
[2019-03-25] MEDS ORDERED: MORPHINE SULF INJ 2 MG/ML SYRINGE 1ML IV PRN (18:45)
[2019-03-25] MEDS ORDERED: VANCOMYCIN 1GM/250ML 250 ML IV ONE (20:00)
[2019-03-25] MEDS: ACCU-CHEK COMFORT CURVE STRIP VI SCH (20:25)
[2019-03-25] MEDS: InsuLIN REG 1unit/0.01ml Soln (100units/ml) SC SCH (20:35)
--- NOTE | 2019-03-25 21:05 | NUR ---
Telemetry admit from [facility] admitted to Telemetry unit. Patient is A&O X's 4 with no s/s of distress noted. She reports no major pain at this moment. Patient able to walk to bed with steady gait. Patient oriented to JERMAINE HERZOG RN primary RN, unit, room, bed, and unit policies regarding patient care and visiting hours. Patient now on continuous telemetry monitoring, tele box #34. Bed is in lowest/locked position with side rails up X's 2 and call light is within reach of patient and encouraged to call if they need something. All questions and concerns addressed, patient verbalized understanding. Will continue care. Patient with elevated temp. Cooling measures initiated. Patient aware of not being able to eat or drink anything besides ice chips
[2019-03-25 21:20] VITALS: BP 133/70
--- NOTE | 2019-03-25 21:44 | NUR ---
MRSA NASAL SWAB SAMPLE SENT TO LAB
[2019-03-25] MEDS: INSULIN LANTUS (GLARGINE) 1 /0.01ml (100units/ml) SC SCH (22:42)
[2019-03-25] MEDS: SODIUM CHLORIDE 0.9% 1,000 ML IV SCH (22:43)
--- NOTE | 2019-03-25 22:43 | NUR ---
PATIENT LEFT UNIT TO SMOKE Patient is A&O X's 4 with no s/s of distress and reports no pain or SOB. AMA form to smoke is signed and explained to patient.
[2019-03-26] MEDS: ACCU-CHEK COMFORT CURVE STRIP VI SCH ×6 (00:03→20:04)
[2019-03-26] MEDS: InsuLIN REG 1unit/0.01ml Soln (100units/ml) SC SCH ×6 (00:03→20:11)
[2019-03-26] MEDS: ONDANSETRON HCL 4 MG/2 ML VIAL IV PRN ×2 (00:03→22:15)
[2019-03-26] MEDS: HYDROmorphone HCL 2 MG/ML VL IV PRN ×6 (00:04→22:15)
[2019-03-26] MEDS: SODIUM CHLORIDE 0.9% 1,000 ML IV SCH ×3 (02:45→18:38)
--- NOTE | 2019-03-26 03:57 | NUR ---
IV insertion IV access obtained, via clean sterile technique by inserting 22 gauge catheter at right hand. IV secured properly. No trauma to site. Patient tolerated well. Patient's 22G IV to left hand was accidently removed by patient when she sleeping. No trauma to site noted. Catheter was fully intact. Applied gauze to site.
[2019-03-26 05:31] VITALS: BP 126/74
[2019-03-26 06:14] LABS: Basophils # (auto) 0 uL; Basophils % (auto) 0.3 % (0.0-2.0); Eosinophils # (auto) 0.1 uL; Eosinophils % (auto) 1.1 % (0.0-7.0); Hemoglobin 12.1 g/dL (12.2-16.2); Lymphocytes # (auto) 2.4 uL; Lymphocytes % (auto) 20.2 % (10.0-50.0); Mean Corpuscular Hemoglobin 31.4 pg (28.0-32.0); Mean Corpuscular Hgb Conc. 33.6 g/dL (32.0-36.0); Mean Corpuscular Volume 93.3 fL (80.0-100.0); Monocytes % (auto) 8.6 % (0.0-12.0); Neutrophils # (auto) 8.4 uL; Neutrophils % (auto) 69.8 % (37.0-80.0); Platelet Count (auto) 171 10^3/uL (140-450); Red Blood Cells 3.86 10^6/uL (4.0-5.20); Red Cell Distribution Width 13.3 % (11.8-14.3); White Blood Cell 12.1 10^3/uL (4.4-10.8)
[2019-03-26 06:23] LABS: Potassium 3.4 mmol/L (3.5-5.1)
[2019-03-26 06:33] LABS: Albumin 2.3 g/dL (3.4-5.0); BUN/Creatinine Ratio 14.7; Bilirubin, Total 0.5 mg/dL (0.2-1.0); Calcium 8.5 mg/dL (8.5-10.1); Total Protein 6.6 g/dL (6.4-8.2)
[2019-03-26 09:00] VITALS: BP 111/59
[2019-03-26] MEDS ORDERED: cefTRIAXone 1GM/50ML D5W 50 ML IV SCH (09:00)
[2019-03-26] MEDS: amLODIPine BESYLATE 5 MG TAB PO SCH (10:00)
[2019-03-26 13:00] VITALS: BP 125/68
[2019-03-26] MEDS: VANCOMYCIN 1GM/250ML 250 ML IV SCH ×2 (13:01→22:55)
[2019-03-26] MEDS: PIPERACILLIN-TAZO 4.5GM 100 ML IV SCH ×2 (13:04→18:36)
[2019-03-26 16:55] VITALS: BP 156/85
--- NOTE | 2019-03-26 19:15 | NUR ---
OPENING SHIFT NOTE Assumed care of patient who is A&O x4. On RA with no s/s of distress or SOB. Denies pain at this time. Patient is able to ambulate independently without the use of assistive devices. POC discussed with patient who verbalizes understanding. Call light is within reach and patient encouraged to call for assistance when needed. Will continue to monitor for changes PRN.
--- NOTE | 2019-03-26 19:45 | NUR ---
Patient off unit to smoke.
[2019-03-26 20:00] VITALS: BP 147/70
--- NOTE | 2019-03-26 20:00 | NUR ---
Patient returned to unit. No distress noted.
--- NOTE | 2019-03-26 21:00 | NUR ---
Patient's temperature is elevated at 100.8 and hear rate is 116. Cooling measures applied. Will reassess.
--- NOTE | 2019-03-26 21:14 | NUR ---
Dr. Tavera at bedside.
[2019-03-26] MEDS: INSULIN LANTUS (GLARGINE) 1 /0.01ml (100units/ml) SC SCH (21:39)
[2019-03-26 22:06] VITALS: BP 147/70
--- NOTE | 2019-03-26 22:15 | NUR ---
Temperature reassessed and remains 100.8. Hospitalist paged to notify of vital signs and request PRN antipyretic. Awaiting call back.
--- NOTE | 2019-03-26 23:16 | NUR ---
Received call back from hospitalist Christian Luna NP. New orders received. Will follow through.
[2019-03-27] VITALS (7 sets, daily range): BP systolic 96–147; BP diastolic 51–73
[2019-03-27] MEDS: ACCU-CHEK COMFORT CURVE STRIP VI SCH ×7 (00:09→20:00)
--- NOTE | 2019-03-27 00:15 | NUR ---
Called ER to obtain medication. ER staff to call back.
[2019-03-27] MEDS: InsuLIN REG 1unit/0.01ml Soln (100units/ml) SC SCH ×7 (00:22→20:00)
[2019-03-27] MEDS: PIPERACILLIN-TAZO 4.5GM 100 ML IV SCH ×2 (00:30→05:46)
--- NOTE | 2019-03-27 00:35 | NUR ---
Temperature reassessed and is 99.0
[2019-03-27] MEDS: SODIUM CHLORIDE 0.9% 1,000 ML IV SCH ×3 (02:45→18:52)
[2019-03-27] MEDS: ONDANSETRON HCL 4 MG/2 ML VIAL IV PRN (04:28)
[2019-03-27] MEDS: HYDROmorphone HCL 2 MG/ML VL IV PRN ×4 (04:28→23:12)
[2019-03-27] MEDS: ACETAMINOPHEN 325 MG TAB PO PRN ×2 (04:29→21:16)
--- NOTE | 2019-03-27 04:50 | NUR ---
IV in left upper arm infiltrated. Catheter is fully intact upon removal. Pressure dressing applied. Patient tolerated well.
--- NOTE | 2019-03-27 05:05 | NUR ---
IV insertion IV access obtained, via clean sterile technique by inserting A 22 gauge catheter at the right forearm after 1 attempt. IV secured properly. No trauma to site. Patient tolerated well.
[2019-03-27 05:28] LABS: Basophils # (auto) 0 uL; Basophils % (auto) 0.3 % (0.0-2.0); Eosinophils # (auto) 0.1 uL; Eosinophils % (auto) 1.4 % (0.0-7.0); Hematocrit 34.1 % (36.0-46.0); Hemoglobin 11.4 g/dL (12.2-16.2); Lymphocytes # (auto) 1.7 uL; Mean Corpuscular Hemoglobin 31.1 pg (28.0-32.0); Mean Corpuscular Hgb Conc. 33.3 g/dL (32.0-36.0); Mean Corpuscular Volume 93.5 fL (80.0-100.0); Monocytes # (auto) 1.1 uL; Monocytes % (auto) 10.6 % (0.0-12.0); Neutrophils # (auto) 7.1 uL; Neutrophils % (auto) 70.7 % (37.0-80.0); Nucleated Red Blood Cells % 0.1 %; Platelet Count (auto) 190 10^3/uL (140-450); Red Blood Cells 3.65 10^6/uL (4.0-5.20); Red Cell Distribution Width 13.4 % (11.8-14.3)
[2019-03-27 05:44] LABS: INR 1.07 (0.9-1.15); Partial Thromboplastin Time 33.3 sec (23.64-32.05)
[2019-03-27 05:46] LABS: Albumin 1.9 g/dL (3.4-5.0); Calcium 8.2 mg/dL (8.5-10.1); Magnesium 1.7 mg/dL (1.6-2.6); Potassium 3.4 mmol/L (3.5-5.1)
[2019-03-27 05:50] LABS: Bilirubin, Total 0.5 mg/dL (0.2-1.0)
[2019-03-27] MEDS ORDERED: diphenhdrAMINE HCL 50 MG/1 ML VL IV ONE (09:15)
[2019-03-27] MEDS: amLODIPine BESYLATE 5 MG TAB PO SCH (10:00)
[2019-03-27] MEDS ORDERED: hydrOXYzine HCL 25 MG/ML VL IM PRN (10:30)
[2019-03-27] MEDS ORDERED: GADOTERIDOL 279.3mg/mL 20ml Vial IV ONE (10:47)
[2019-03-27] MEDS ORDERED: VANCOMYCIN 1GM/250ML 250 ML IV SCH (11:00)
[2019-03-27] MEDS ORDERED: MEROPENEM 1GM IVPB 100 ML IV SCH (11:15)
[2019-03-27 12:32] LABS: Hepatitis A Ab IgM Negative
[2019-03-27] MEDS: VANCOMYCIN 1GM/250ML 250 ML IV SCH ×2 (12:35→23:13)
[2019-03-27] MEDS: MEROPENEM 1GM IVPB 100 ML IV SCH ×2 (12:45→20:20)
[2019-03-27 13:52] LABS: Hepatitis B Core IgM Negative
[2019-03-27 13:56] LABS: Hepatitis B Surface Antigen Negative (Negative)
[2019-03-27 14:06] LABS: Hepatitis C Antibody Negative (Negative)
--- NOTE | 2019-03-27 16:08 | NUR ---
Midline Placement: Patient educated on need for midline placement. All risks and benefits explained and all questions and concerns addresses prior to procedure. 18g/10cm midline inserted via right basilic vein using Ultrasound. Sterile technique utilized. Blood return obtained from lumen and flushed easily with NS using proper technique. Midline secured with saline lock; biodisc and occlusive dressing applied. Tasneem MURILLO notified. Midline lot #[id number]
--- NOTE | 2019-03-27 20:00 | NUR ---
Opening Shift Note Assumed care of patient, awake and alert. No S/S of distress/SOB or pain. Instructed on POC and to call for assist PRN, will continue to monitor for changes Q1hr and PRN.
[2019-03-27] MEDS: diphenhdrAMINE HCL 50 MG/1 ML VL IV PRN (20:21)
[2019-03-27] MEDS: INSULIN LANTUS (GLARGINE) 1 /0.01ml (100units/ml) SC SCH (22:00)
--- NOTE | 2019-03-27 22:00 | NUR ---
MD Tavera at bedside. new orders received. patient to be on clear liquid diet until midnight 03/28/2019. Patient is to have procedure in the morning. New orders for Tylenol 1gm IV q6hrs for temperature above 101 F
--- NOTE | 2019-03-27 22:10 | NUR ---
Per pharmacy IV tylenol must have a start and stop date. MD Tavera contacted. Left a message pertaining to IV tylenol start and stop date. Awaiting call back.
--- NOTE | 2019-03-28 | NUR ---
Temperature of 99.1
[2019-03-28] MEDS: ACCU-CHEK COMFORT CURVE STRIP VI SCH ×6 (00:18→20:00)
[2019-03-28] MEDS: InsuLIN REG 1unit/0.01ml Soln (100units/ml) SC SCH ×6 (00:27→20:00)
[2019-03-28] MEDS: SODIUM CHLORIDE 0.9% 1,000 ML IV SCH ×3 (02:48→18:29)
[2019-03-28] MEDS: MEROPENEM 1GM IVPB 100 ML IV SCH ×3 (03:15→18:42)
[2019-03-28] MEDS: HYDROmorphone HCL 2 MG/ML VL IV PRN ×4 (04:48→23:17)
[2019-03-28 05:00] VITALS: BP 105/52
[2019-03-28 05:19] LABS: Basophils # (auto) 0 uL; Basophils % (auto) 0.3 % (0.0-2.0); Eosinophils # (auto) 0.1 uL; Eosinophils % (auto) 0.8 % (0.0-7.0); Hematocrit 31.8 % (36.0-46.0); Hemoglobin 10.8 g/dL (12.2-16.2); Lymphocytes % (auto) 16.4 % (10.0-50.0); Mean Corpuscular Hemoglobin 31.1 pg (28.0-32.0); Mean Corpuscular Hgb Conc. 33.9 g/dL (32.0-36.0); Mean Corpuscular Volume 91.8 fL (80.0-100.0); Monocytes # (auto) 1.4 uL; Monocytes % (auto) 11.7 % (0.0-12.0); Neutrophils # (auto) 8.6 uL; Neutrophils % (auto) 70.8 % (37.0-80.0); Platelet Count (auto) 211 10^3/uL (140-450); Red Blood Cells 3.47 10^6/uL (4.0-5.20); Red Cell Distribution Width 13.4 % (11.8-14.3); White Blood Cell 12.2 10^3/uL (4.4-10.8)
[2019-03-28 05:28] LABS: Calcium 8.1 mg/dL (8.5-10.1); Potassium 3.5 mmol/L (3.5-5.1)
[2019-03-28 05:31] LABS: BUN/Creatinine Ratio 8.2
[2019-03-28] MEDS ORDERED: SUCCINYLCHOLINE CHLORIDE 20 MG/ML 10ML VIAL IV ONE (07:40)
[2019-03-28 07:44] VITALS: BP 147/70
[2019-03-28] MEDS ORDERED: fentaNYL CITRATE 100 MCG/2 ML VL IV PRN (08:00)
[2019-03-28] MEDS ORDERED: METOCLOPRAMIDE HCL 5MG/ml INJ 2ml VIAL IV PRN (08:00)
[2019-03-28] MEDS ORDERED: ACCU-CHEK COMFORT CURVE STRIP VI ONE (08:00)
[2019-03-28] MEDS ORDERED: HYDROmorphone HCL 2 MG/ML VL IV PRN (08:00)
[2019-03-28] MEDS ORDERED: CHLORHEXIDINE 4% TOPICAL soln 118ml TOP ONE (08:07)
[2019-03-28] MEDS ORDERED: MIDAZOLAM HCL 1MG/1ML-2 ML VIAL ONE (08:10)
[2019-03-28] MEDS ORDERED: PROPOFOL 10 MG/ML 20 ML IV ONE (08:10)
[2019-03-28] MEDS ORDERED: SODIUM CHLORIDE LOCK 20 ML ONE (08:10)
[2019-03-28] MEDS ORDERED: fentaNYL CITRATE 100 MCG/2 ML VL ONE (08:10)
[2019-03-28] MEDS ORDERED: ONDANSETRON HCL 4 MG/2 ML VIAL ONE (08:10)
--- NOTE | 2019-03-28 08:20 | NUR ---
TAKEN TO RECOVERY ROOM VIA BD NO SIGNS OF DISTRESS. DR Tayler HARDY AT BEDSIDE.
[2019-03-28] MEDS ORDERED: ceFAZolin 1GM/50ML 50 ML IV ONE (08:23)
[2019-03-28] MEDS ORDERED: ceFAZolin 1GM VL ONE (08:27)
[2019-03-28 08:44] VITALS: BP 136/63
[2019-03-28] MEDS: amLODIPine BESYLATE 5 MG TAB PO SCH (10:00)
[2019-03-28] MEDS: VANCOMYCIN 750mg/250ml 250 ML IV SCH ×2 (11:19→23:11)
[2019-03-28] MEDS ORDERED: VANCOMYCIN 1GM/250ML 250 ML IV SCH (12:00)
[2019-03-28 13:55] VITALS: BP 116/69
[2019-03-28 17:46] VITALS: BP 126/69
--- NOTE | 2019-03-28 19:09 | NUR ---
D/C Planning Per consult for SNF Placement for daily wound care with packing perianal area. Contacted [facility], [facility] and [facility]. Per Marina from [facility] Pt has been accepted to room [address] Davis. Contacted [facility] Ph:) Fax:) faxed medical records. Per Mihir from [facility] authorization for SNF is [id number] and for transportation is [id number]. Contacted [facility] transport Ph:) Ph:) Fax:) Faxed transportation request form to arrange transportation time for Sunday03/29/19 at 15:00 via [facility] and to informed RN assigned at ext [phone]. Addendum: 03/28/19 at 1920 by LUZ MARIA HATHAWAY Amended: Links added.
--- NOTE | 2019-03-28 20:34 | NUR ---
Patient went down to smoke. educated patient about hospital policy and smoking policy. Patient verbalized understanding and requesting to smoke. smoking form signed.
--- NOTE | 2019-03-28 20:53 | NUR ---
patient back on unit. bed in low position and call light within reach. denies pain or SOB
[2019-03-28] MEDS: INSULIN LANTUS (GLARGINE) 1 /0.01ml (100units/ml) SC SCH (21:38)
[2019-03-28 22:00] VITALS: BP 128/65
[2019-03-28] MEDS: diphenhdrAMINE HCL 50 MG/1 ML VL IV PRN (22:15)
--- NOTE | 2019-03-28 23:40 | NUR ---
patient dressing on left buttock became unattached patient had minimal serosanguineous drainage.Dressing reinforced.
[2019-03-29] MEDS: ACCU-CHEK COMFORT CURVE STRIP VI SCH ×4 (00:07→12:41)
--- NOTE | 2019-03-29 01:30 | NUR ---
Patient went down to smoke. educated patient about hospital policy and smoking policy. Patient verbalized understanding and requesting to smoke. smoking form signed.
--- NOTE | 2019-03-29 01:40 | NUR ---
patient back on unit. bed in low position and call light within reach. denies pain or SOB
[2019-03-29] MEDS: SODIUM CHLORIDE 0.9% 1,000 ML IV SCH ×2 (02:44→10:45)
[2019-03-29] MEDS: MEROPENEM 1GM IVPB 100 ML IV SCH ×2 (03:25→11:15)
[2019-03-29] MEDS: HYDROmorphone HCL 2 MG/ML VL IV PRN (03:49)
[2019-03-29] MEDS: InsuLIN REG 1unit/0.01ml Soln (100units/ml) SC SCH ×4 (03:55→12:41)
--- NOTE | 2019-03-29 05:00 | NUR ---
PATIENT IS REPORTING PAIN 7/10 ON HER RIGHT UPPER ARM WHERE MIDLINE IS PLACED. AREA IS TENDER TO TOUCH AND SWOLLEN. i WAS ABLE TO FLUSH MIDLINE WITHOUT ANY RESISTANT. NOT ABLE TO DRAW BLOOD BACK FROM MIDLINE. WILL NOTIFY
--- NOTE | 2019-03-29 05:10 | NUR ---
called lab to draw blood. was not able to draw blood back from midline.
[2019-03-29 05:32] VITALS: BP 114/54
--- NOTE | 2019-03-29 06:29 | NUR ---
HOSPITALIST CALLED BACK. INFORMED HOSPITALIST THAT I WAS UNABLE TO DRAW BLOOD BACK FOR MIDLINE ON RIGHT ARM. AREA IS TENDER TO TOUCH AND SWOLLEN. NEW ORDER FOR ULTRASOUND OF THE RIGHT ARM TO CONFIRM PLACEMENT OF MIDLINE.
--- NOTE | 2019-03-29 06:30 | NUR ---
ATTEMPT MADE BY CHIDI BENAVIDES TO START PERIPHERAL IV. CHIDI BENAVIDES UNABLE TO.
[2019-03-29 07:28] LABS: Basophils # (auto) 0 uL; Basophils % (auto) 0.3 % (0.0-2.0); Eosinophils # (auto) 0.2 uL; Eosinophils % (auto) 1.9 % (0.0-7.0); Hematocrit 31.7 % (36.0-46.0); Hemoglobin 10.5 g/dL (12.2-16.2); Lymphocytes % (auto) 20.9 % (10.0-50.0); Mean Corpuscular Hemoglobin 30.5 pg (28.0-32.0); Mean Corpuscular Hgb Conc. 33.1 g/dL (32.0-36.0); Mean Corpuscular Volume 92.4 fL (80.0-100.0); Monocytes # (auto) 1.1 uL; Monocytes % (auto) 12.1 % (0.0-12.0); Neutrophils # (auto) 6.1 uL; Neutrophils % (auto) 64.8 % (37.0-80.0); Platelet Count (auto) 231 10^3/uL (140-450); Red Blood Cells 3.43 10^6/uL (4.0-5.20); Red Cell Distribution Width 13.5 % (11.8-14.3); White Blood Cell 9.4 10^3/uL (4.4-10.8)
--- NOTE | 2019-03-29 07:30 | NUR ---
Open Shift Note Received report on patient, asleep in bed. Patient difficult to awake, opens eyes to shaking. Patient shows no signs of distress at this time but states her IV is hurting her. Discussed POC with patient and plans for transfer to [facility]. Patient states she does not want to go there, and would like home health instead. Verbalized understanding and stated doctor would be made aware. Bed in lowest locked position, side rails up x2 and call light within reach. Will continue to monitor.
--- NOTE | 2019-03-29 07:41 | NUR ---
REPORT GIVEN TO JOSHUA MURILLO. INFORMED RN OF MIDLINE VERIFICATION VIA US PER MD DUE TO PATIENT HAVING PAIN ON HER RIGHT ARM.
[2019-03-29 07:45] LABS: Potassium 3.3 mmol/L (3.5-5.1)
[2019-03-29 07:49] LABS: Albumin 1.6 g/dL (3.4-5.0); BUN/Creatinine Ratio 7.4; Bilirubin, Total 0.3 mg/dL (0.2-1.0); Calcium 7.9 mg/dL (8.5-10.1); Total Protein 5.8 g/dL (6.4-8.2)
--- NOTE | 2019-03-29 08:10 | NUR ---
Mid Line Removed Mid line is not correctly placed. Removed patient's mid line using clean sterile technique. Gauze and dressing applied. Patient tolerated well. Will continue to monitor.
[2019-03-29 09:00] VITALS: BP 131/59
[2019-03-29] MEDS: amLODIPine BESYLATE 5 MG TAB PO SCH (09:37)
[2019-03-29] MEDS ORDERED: MAGNESIUM OXIDE 400 MG TAB PO ONE (10:00)
[2019-03-29] MEDS ORDERED: POTASSIUM CHL 20 Meq TABLET PO ONE (10:00)
[2019-03-29] MEDS ORDERED: CLIN300C8 PO (10:16)
[2019-03-29] MEDS ORDERED: PROBCAP12 OR (10:16)
--- NOTE | 2019-03-29 10:45 | NUR ---
Dressing Change Changed patient's dressing with Dr Tavera and Dr Davis at bedside. Patient tolerated well.
--- NOTE | 2019-03-29 10:57 | NUR ---
o/c note Aby primary RN informed me pt stated she did not know she was going to snf and wants to go home. Orders written for HH for wd care. Per Aby pt stated she has a sister is a nurse can assist with wd care. Instructed Aby to fax [facility] packet [phone] [phone]
[2019-03-29] MEDS: VANCOMYCIN 750mg/250ml 250 ML IV SCH (11:00)
--- NOTE | 2019-03-29 11:50 | NUR ---
o/c note Aby instructed to fax HH packet to [facility] [phone] . [facility] accepted and start of care will begin Sunday. Aby instructed to let pt know her pt/s sister will need to do wd care for Sunday.
[2019-03-29 13:00] VITALS: BP 112/59
--- NOTE | 2019-03-29 13:21 | NUR ---
o/c note auth for [facility] is [id number] Addendum: 03/29/19 at 1330 by Asha Yuan RN CM auths given to nj by Bri MOSS ph [phone]
--- NOTE | 2019-03-29 13:28 | NUR ---
Prescriptions Called Into Pharmacy Patient's regular pharmacy closed over the weekend. Per patient's request, prescriptions called into [facility] at [address] [phone].
--- NOTE | 2019-03-29 13:55 | NUR ---
Patient Refused Potassium and Magnesium Patient stated she did not want to take PO Potassium and Magnesium, states "I'm going home I don't need that". Educated patient the importance of these medications, verbalized understanding.
--- NOTE | 2019-03-29 14:00 | NUR ---
Discharged Discharge instructions given as ordered. Encourage to follow up with PMD as instructed and to make an appointment on Sunday. All questions and concerns addressed. Patient and spouse verbalized understanding. Medication reconciliation form completed and copy given to patient. Mid line previously removed, note made. Patient taken to vehicle via wheelchair with all personal belongings, accompanied by staff and family member. No distress noted at time of departure.
[2019-04-29] MEDS ORDERED: AML5T PO (21:58)
[2019-04-29] MEDS ORDERED: INSUINJ18 SC (21:58)
== END 2019-03-29 14:00 | disposition home health service (06) | DRG 710 ==
LOC: ER 13:35 → TELE 13:36 → TELE-CENTR 21:09 → CENTRAL 03-28 10:50
PROVIDERS: ADMIT Nurse Practitioner Acute Care; ATTEND Internal Medicine
PROC: 0D9Q0ZZ Drainage of Anus, Open Approach (ICD-10-PCS; principal; 2019-03-28 08:25)
DX: A41.9 Sepsis, unspecified organism (principal); B37.89 Other sites of candidiasis; E11.22 Type 2 diabetes mellitus with diabetic chronic kidney disease; E11.40 Type 2 diabetes mellitus with diabetic neuropathy, unspecified; N18.3 Chronic kidney disease, stage 3 (moderate); E11.65 Type 2 diabetes mellitus with hyperglycemia; E44.1 Mild protein-calorie malnutrition; E66.9 Obesity, unspecified; E86.0 Dehydration; I12.9 Hypertensive chronic kidney disease with stage 1 through stage 4 chronic kidney disease, or unspecified chronic kidney disease; J44.9 Chronic obstructive pulmonary disease, unspecified; I70.8 Atherosclerosis of other arteries; K61.39 Other ischiorectal abscess; F17.210 Nicotine dependence, cigarettes, uncomplicated; L02.31 Cutaneous abscess of buttock; F41.9 Anxiety disorder, unspecified; F32.9 Major depressive disorder, single episode, unspecified; N75.0 Cyst of Bartholin's gland; B96.1 Klebsiella pneumoniae [K. pneumoniae] as the cause of diseases classified elsewhere; M10.9 Gout, unspecified; L02.215 Cutaneous abscess of perineum; Z90.710 Acquired absence of both cervix and uterus; Z82.5 Family history of asthma and other chronic lower respiratory diseases; Z80.7 Family history of other malignant neoplasms of lymphoid, hematopoietic and related tissues; Z79.899 Other long term (current) drug therapy; Z79.4 Long term (current) use of insulin; Z83.3 Family history of diabetes mellitus; Z82.49 Family history of ischemic heart disease and other diseases of the circulatory system; Z86.73 Personal history of transient ischemic attack (TIA), and cerebral infarction without residual deficits; Z80.41 Family history of malignant neoplasm of ovary; Z88.6 Allergy status to analgesic agent; Z91.041 Radiographic dye allergy status; Z91.013 Allergy to seafood; Z98.51 Tubal ligation status; Z90.89 Acquired absence of other organs; Z68.33 Body mass index [BMI] 33.0-33.9, adult; Z88.8 Allergy status to other drugs, medicaments and biological substances
CPT/HCPCS: 36415; 73723; 74176; 76881; 80048; 80053; 80061; 80074; 80202; 81001; 82378; 82962; 83036; 83735; 84443; 84702; 85025; 85610; 85730; 86300; 86301; 86304; 86703; 86850; 86900; 86901; 87040; 87070; 87075; 87077; 87081; 87086; 87186; 87205; 87804; 96361; 96365; 96367; 96375; G0378; J0330; J0690; J0696; J1815; J2185; J2250; J2405; J2543; J2704

== ENCOUNTER 2019-04-15 12:45 | Inpatient (IN) | payer MEDICAID ==
[~2019-04-15] VITALS: Ht 157.5 cm; Wt 80.8 kg
[~2019-04-15 12:45] MED LIST changes: +CLIN300C8 PO; -HYOS0.1264 PO; +PROBCAP12 OR
[2019-04-15 14:38] LABS: Basophils # (auto) 0 uL; Basophils % (auto) 0.4 % (0.0-2.0); Eosinophils # (auto) 0 uL; Hematocrit 42.7 % (36.0-46.0); Hemoglobin 14.1 g/dL (12.2-16.2); Lymphocytes % (auto) 8.7 % (10.0-50.0); Mean Corpuscular Hemoglobin 30.7 pg (28.0-32.0); Mean Corpuscular Volume 93.2 fL (80.0-100.0); Monocytes # (auto) 1.1 uL; Monocytes % (auto) 9.1 % (0.0-12.0); Neutrophils # (auto) 9.8 uL; Neutrophils % (auto) 81.8 % (37.0-80.0); Nucleated Red Blood Cells % 0.1 %; Platelet Count (auto) 198 10^3/uL (140-450); Red Blood Cells 4.58 10^6/uL (4.0-5.20); Red Cell Distribution Width 14.7 % (11.8-14.3)
[2019-04-15 14:52] LABS: Albumin 3.4 g/dL (3.4-5.0); Calcium 9.2 mg/dL (8.5-10.1); Potassium 4.3 mmol/L (3.5-5.1)
[2019-04-15 15:00] LABS: Bilirubin, Total 0.8 mg/dL (0.2-1.0); Total Protein 8.2 g/dL (6.4-8.2)
[2019-04-15 15:19] LABS: BUN/Creatinine Ratio 12.9
[2019-04-15] MEDS ORDERED: SODIUM CHLORIDE 0.9% 1,000 ML IV ONE (15:30)
[2019-04-15] MEDS ORDERED: BISACODYL 10 MG RECT SUPP PR ONE (18:15)
[2019-04-15] MEDS ORDERED: VANCOMYCIN PER PHARMACY 0 MG IV SCH (18:15)
[2019-04-15] MEDS ORDERED: NITROGLYCERIN 0.4 MG SL TAB SL PRN (18:15)
[2019-04-15] MEDS ORDERED: HYDROmorphone HCL 2 MG/ML VL IV ONE (18:15)
[2019-04-15] MEDS ORDERED: LACTULOSE 20Gm/30ML SOLN PO ONE (18:15)
[2019-04-15] MEDS ORDERED: DEXTROSE (50%) 50ML SYRG IV PRN (18:15)
[2019-04-15] MEDS ORDERED: PROMETHAZINE HCL 25 MG/ML 1ML IV PRN (18:15)
[2019-04-15] MEDS ORDERED: MORPHINE SULF INJ 2 MG/ML SYRINGE 1ML IV PRN (18:15)
[2019-04-15] MEDS: SODIUM CHLORIDE 0.9% 1,000 ML IV SCH ×2 (18:37→18:39)
[2019-04-15 19:23] LABS: Lactic Acid w/Reflex 2.5 mmol/L (0.4-2.0)
[2019-04-15 20:05] VITALS: BP 128/64
--- NOTE | 2019-04-15 20:05 | NUR ---
Telemetry admit from [facility] admitted to Telemetry unit after SBAR received. Patient oriented to BRYAN CARRILLO RN primary RN, unit, room, bed, and unit policies regarding patient care and visiting hours. Patient now on continuous telemetry monitoring, tele box #8 and telemetry reading on arrival to unit is SINUS TACHYCARDIA. No s/s of distress or SOB noted. Patient denies pain at this time. Bed locked and left in the lowest position. Call light left within reach. Patient placed on bedside oxygen, weighed by bed scale and encouraged to call if they need something. All questions and concerns addressed, patient verbalized understanding. Note:
[2019-04-15] MEDS: VANCOMYCIN 1GM/250ML 250 ML IV SCH (20:57)
[2019-04-15] MEDS: InsuLIN REG 1unit/0.01ml Soln (100units/ml) SC SCH (20:58)
[2019-04-15] MEDS: ACCU-CHEK COMFORT CURVE STRIP VI SCH (20:58)
--- NOTE | 2019-04-15 21:56 | NUR ---
MRSA NASAL SWAB SAMPLE SENT TO LAB
[2019-04-15] MEDS: DOCUSATE SOD 100 MG CAP PO SCH (22:00)
[2019-04-15 22:26] VITALS: BP 128/64
--- NOTE | 2019-04-15 23:05 | NUR ---
Patient is upset with the placement of the IV, LEJ, and refused IV fluid at this time. Patient was educated on need of IVF. Patient verbalized understanding and stated she "will get it hooked back on later."
--- NOTE | 2019-04-16 00:13 | NUR ---
HIGH BLOOD GLUCOSE LEVEL MIDNIGHT GLUCOSE READING 474. HOSPITALIST PAGED. AWAITING CALL BACK.
[2019-04-16] MEDS: ACCU-CHEK COMFORT CURVE STRIP VI SCH ×6 (00:17→20:36)
--- NOTE | 2019-04-16 00:30 | NUR ---
HOSPITALIST CALLED BACK. NO NEW ORDERS GIVEN
[2019-04-16] MEDS: PIPERACILLIN-TAZOB 3.375GM 100 ML IV SCH ×3 (00:44→11:54)
[2019-04-16] MEDS: InsuLIN REG 1unit/0.01ml Soln (100units/ml) SC SCH ×6 (00:45→20:35)
[2019-04-16] MEDS: MORPHINE SULF INJ 2 MG/ML SYRINGE 1ML IV PRN ×2 (01:18→18:32)
--- NOTE | 2019-04-16 02:00 | NUR ---
PATIENT STATES HAVING ITCHING FROM THE ZOSYN. ZOSYN STOPPED. VITAL SIGNS: 123/59, HR 108, RR 16, TEMP 98.8, O2 SAT 95%, HOSPITALIST PAGED. AWAITING CALL BACK.
[2019-04-16] MEDS ORDERED: diphenhdrAMINE HCL 25 MG CAP PO ONE (02:45)
--- NOTE | 2019-04-16 02:46 | NUR ---
Hospitalist called back. New orders given, verified, and read back. Benadryl 25 mg PO x1
--- NOTE | 2019-04-16 05:16 | NUR ---
HIGH TEMPERATURE PATIENT'S TEMPERATURE 100.1 WITH ASSOCIATED CHILLS AND SHIVERING INITIATED COOLING MEASURES. NO DIAPHORESIS NOTED. HR IS IN THE 140s, PATIENT DENIES ANY CHEST PAIN OR DIZZINESS. EKG DONE. VITALS: 147/82, 96% O2 AT, 20 RR. HOSPITALIST PAGED AWAITING CALL BACK.
[2019-04-16 05:17] VITALS: BP 147/82
--- NOTE | 2019-04-16 05:49 | NUR ---
HOSPITALIST PAGED BACK NEW ORDERS GIVEN, VERIFIED, AND READ BACK. TYLENOL 650 PRN Q6HRS AND 1/2 LITER NS BOLUS.
[2019-04-16] MEDS ORDERED: SODIUM CHLORIDE 0.9% 500 ML IV ONE (06:00)
[2019-04-16] MEDS ORDERED: ACETAMINOPHEN 325 MG TAB PO PRN (06:00)
[2019-04-16 06:36] LABS: Basophils # (auto) 0 uL; Basophils % (auto) 0.2 % (0.0-2.0); Eosinophils # (auto) 0 uL; Hematocrit 36.1 % (36.0-46.0); Hemoglobin 12.2 g/dL (12.2-16.2); Lymphocytes # (auto) 0.5 uL; Mean Corpuscular Hemoglobin 31.1 pg (28.0-32.0); Mean Corpuscular Hgb Conc. 33.8 g/dL (32.0-36.0); Mean Corpuscular Volume 92.1 fL (80.0-100.0); Monocytes # (auto) 0.3 uL; Monocytes % (auto) 4.1 % (0.0-12.0); Neutrophils # (auto) 6.1 uL; Neutrophils % (auto) 88.7 % (37.0-80.0); Platelet Count (auto) 134 10^3/uL (140-450); Red Blood Cells 3.92 10^6/uL (4.0-5.20); Red Cell Distribution Width 14.5 % (11.8-14.3); White Blood Cell 6.9 10^3/uL (4.4-10.8)
[2019-04-16 06:50] LABS: Potassium 3.7 mmol/L (3.5-5.1)
[2019-04-16 06:56] LABS: Albumin 2.6 g/dL (3.4-5.0); BUN/Creatinine Ratio 10.9; Calcium 8.5 mg/dL (8.5-10.1)
[2019-04-16 06:59] LABS: Bilirubin, Total 0.6 mg/dL (0.2-1.0); Total Protein 6.8 g/dL (6.4-8.2)
--- NOTE | 2019-04-16 08:00 | NUR ---
ASSESSMENT NOTE PATIENT IS ALERT ORIENTED X4, RESTING IN BED COMFORTABLY, ABLE TO SELF REPOSITION AND VERBALIS HER DEMANDS, GENERALIS WEAKNESS NOTED, A SMALL LONG TUDINAL LUMP NOTED ON PALPATION AT LEFT LOWER INNER GLUTEUS AREA, DENIES PAIN 0/10, PT FREQUENTLY TOSSING AROUND IN BED STATED < I AM ITCHING>, NO HIVES NOTED ON HER BODY, CALL LIGHT WITHIN REACH.
[2019-04-16] MEDS: VANCOMYCIN 1GM/250ML 250 ML IV SCH (08:15)
[2019-04-16 09:00] VITALS: BP 116/60
[2019-04-16] MEDS: DOCUSATE SOD 100 MG CAP PO SCH ×2 (09:05→22:00)
[2019-04-16] MEDS: LACTULOSE 20Gm/30ML SOLN PO SCH (09:05)
[2019-04-16] MEDS: PANTOPRAZOLE 40 MG TAB PO SCH (09:06)
--- NOTE | 2019-04-16 09:30 | NUR ---
BM PT HAS SOFT LARGE BM, ASSITED TO BATHROOM, KEPT CLEAN NAD DRY
--- NOTE | 2019-04-16 10:00 | NUR ---
PATIENT TEND TO TAKE HER GOWN OFF AND EXPOSE HER PRIVATE PART, ENOURAGE PT TO COVER HER SELF, PT STATED < I AM NOT SHY>
[2019-04-16] MEDS: SODIUM CHLORIDE 0.9% 1,000 ML IV SCH ×2 (10:15→16:45)
--- NOTE | 2019-04-16 11:43 | NUR ---
PT HAS 3 LOOSE BM, KEPT CLEAN AND DRY
[2019-04-16 13:00] VITALS: BP 91/53
--- NOTE | 2019-04-16 15:44 | NUR ---
PATIENT FALL IN SLEEP AFTER LUNCH, CONTINUE SLEEPING, NO DISTRESS NOTED. CONTINUE MONITORING
--- NOTE | 2019-04-16 16:30 | NUR ---
DR Saba RUSSO AT BED SIDE WITH SKIN BODY ASSESSMENT, NO CYST NOTED AT THE PERINEAL AREA, HARD PALPABLE LUMP NOTED AT THE LEFT GLUTEUS AREA, DR RUSSO INFORM PT THAT HE WILL GOING TO PUT A SURGICAL CONSULT WITH EITHER DR HARDY OR DR KING FOR INCISION AND DRAINAGE, AND DISCHARGE HOME LATER AFTER WITH HOME ANTIBIOTICS, DR Saba RUSSO DIS ASSESS PATIENT LIVING SITUATION, PT STATED THAT SHE IS LIVING WITH HER PARTNER GIRL FRIEND, PATIENT VERBALIS UNDERSTANDING FOR ALL ABOVE INSTRUCTION .
--- NOTE | 2019-04-16 16:31 | NUR ---
WOUND CARE NOTE: WOUND CONSULT ORDERED FOR PATIENT WITH LEFT BUTTOCK ABSCESS. CURRENT ALEC SCORE IS 20. WOUND PHOTO TAKEN AT TIME OF ADMIT BY BEDSIDE NURSE FOR REFERENCE. PATIENT PATIENT HAS HARD INDURATED SKIN TO LEFT BUTTOCK. THERE IS EDEMA, ERYTHEMA. NO OPEN WOUND. RECOMMEND: SURGICAL CONSULT. WILL DEFER ALL RECOMMENDATIONS TO THIS WOUND TO SURGEON AT THIS TIME. NO FURTHER WOUND CARE MONITORING NEEDED AT THIS TIME.
[2019-04-16 17:04] VITALS: BP 135/76
[2019-04-16] MEDS: PIPERACILLIN-TAZOB 2.25GM 50 ML IV SCH (17:34)
--- NOTE | 2019-04-16 17:58 | NUR ---
LOOSE BM PT HAS SMALL LOOSE BM, KEPT DRY AND CLEAN
--- NOTE | 2019-04-16 18:15 | NUR ---
DR KING AND ESTRELLITA DELGADO AT BED SIDE ASSESSING PT LEFT GLUTEAL ABSCESS
--- NOTE | 2019-04-16 18:33 | NUR ---
PT IS RESTING IN BED COMFORTABLY, DRY AND CLEAN, CONTINUE MONITORING
--- NOTE | 2019-04-16 19:30 | NUR ---
Opening Shift Note Assumed care of patient. Patient awake and alert. No S/S of distress/SOB or pain. Instructed on POC and to call for assist PRN, will continue to monitor for changes. Bed locked in lowest position and bed rails up x2. Call light within reach.
--- NOTE | 2019-04-16 19:33 | NUR ---
AMA smoking FOSTER DALTON states they want to leave the floor Against Medical Advice (AMA) to go outside and smoke. Patient encouraged to stay on floor and not smoke. . aware of patient's wishes. Patient advised of the risks and benefits of leaving AMA. Patient verbalized understanding and signed required AMA form.
--- NOTE | 2019-04-16 19:50 | NUR ---
Patient off floor to smoke
--- NOTE | 2019-04-16 20:10 | NUR ---
Patient back in room from smoke break.
[2019-04-16 21:26] VITALS: BP 117/68
[2019-04-17] MEDS: PIPERACILLIN-TAZOB 2.25GM 50 ML IV SCH ×4 (00:22→18:09)
[2019-04-17] MEDS: ACCU-CHEK COMFORT CURVE STRIP VI SCH ×6 (00:22→21:33)
[2019-04-17] MEDS: SODIUM CHLORIDE 0.9% 1,000 ML IV SCH ×2 (01:00→08:45)
--- NOTE | 2019-04-17 01:00 | NUR ---
IV insertion IV access obtained, via clean sterile technique by inserting 22 gauge catheter on the right wrist. IV secured properly. No trauma to site. Patient tolerated well.
[2019-04-17] MEDS: InsuLIN REG 1unit/0.01ml Soln (100units/ml) SC SCH ×6 (01:04→21:33)
--- NOTE | 2019-04-17 01:20 | NUR ---
EJ removed EJ infiltrating and causing patient mild pain. EJ removed.
[2019-04-17] MEDS: MORPHINE SULF INJ 2 MG/ML SYRINGE 1ML IV PRN ×2 (02:17→21:32)
[2019-04-17] MEDS: VANCOMYCIN 1GM/250ML 250 ML IV SCH (05:04)
[2019-04-17 05:25] VITALS: BP 93/49
[2019-04-17 06:00] LABS: Basophils # (auto) 0 uL; Basophils % (auto) 0.3 % (0.0-2.0); Eosinophils # (auto) 0.1 uL; Eosinophils % (auto) 0.7 % (0.0-7.0); Hemoglobin 11.8 g/dL (12.2-16.2); Lymphocytes % (auto) 9.9 % (10.0-50.0); Mean Corpuscular Hemoglobin 31.2 pg (28.0-32.0); Mean Corpuscular Hgb Conc. 33.7 g/dL (32.0-36.0); Mean Corpuscular Volume 92.6 fL (80.0-100.0); Monocytes # (auto) 0.9 uL; Monocytes % (auto) 8.5 % (0.0-12.0); Neutrophils # (auto) 8.4 uL; Neutrophils % (auto) 80.6 % (37.0-80.0); Platelet Count (auto) 106 10^3/uL (140-450); Red Blood Cells 3.78 10^6/uL (4.0-5.20); Red Cell Distribution Width 14.8 % (11.8-14.3); White Blood Cell 10.5 10^3/uL (4.4-10.8)
[2019-04-17 06:26] LABS: Calcium 8.3 mg/dL (8.5-10.1); INR 1.09 (0.9-1.15); Potassium 3.7 mmol/L (3.5-5.1)
[2019-04-17 06:29] LABS: BUN/Creatinine Ratio 15.6
--- NOTE | 2019-04-17 08:00 | NUR ---
ASSESSMENT NOTE PATIENT IS ALERT ORIENTED X4, RESTING IN BED COMFORTABLY, ABLE TO SELF REPOSITION AND VERBALIS HER DEMANDS, APPEAR MORE ENERGETIC TODAY, A SMALL LONG TUDINAL LUMP NOTED ON PALPATION AT LEFT LOWER INNER GLUTEUS AREA,SEEPING OUT TODAY SERASENGEOUS AND SOME BLOOD NOTED, DENIES PAIN 0/10,CALL LIGHT WITHIN REACH
[2019-04-17 09:00] VITALS: BP 111/61
--- NOTE | 2019-04-17 09:30 | NUR ---
WENT TO PT ROOM, PT WAS GONE TO SMOKE WITHOUT NOTIFYING US
[2019-04-17] MEDS: LACTULOSE 20Gm/30ML SOLN PO SCH (10:00)
[2019-04-17] MEDS: DOCUSATE SOD 100 MG CAP PO SCH ×2 (10:00→21:54)
[2019-04-17 13:01] VITALS: BP 114/58
[2019-04-17] MEDS ORDERED: MIDAZOLAM HCL 1MG/1ML-2 ML VIAL ONE (13:13)
[2019-04-17] MEDS ORDERED: ONDANSETRON HCL 4 MG/2 ML VIAL ONE (13:13)
[2019-04-17] MEDS ORDERED: SODIUM CHLORIDE LOCK 10 ML ONE (13:13)
[2019-04-17] MEDS ORDERED: KETAMINE HCL 1 ML ONE (13:13)
[2019-04-17] MEDS ORDERED: PROPOFOL 10 MG/ML 20 ML IV ONE (13:13)
[2019-04-17] MEDS ORDERED: fentaNYL CITRATE 100 MCG/2 ML VL ONE (13:13)
--- NOTE | 2019-04-17 13:30 | NUR ---
TRANSFER PT VIA HOSPITAL BED TO PRE OP ALERT ORIENTED X4, NO DISTRESS NOTED, LISA RN AT SIDE WITH REPORT EARING AND TELE REMOVED PT IS AMBULATING TO PRE OP BATHROOM TO USE THE BATHROOM AND CLEAN ALL HER BODY WITH HCG WIPES, VERBALIS UNDERSTANDING
[2019-04-17] MEDS ORDERED: CHLORHEXIDINE 4% TOPICAL soln 118ml TOP ONE (13:49)
[2019-04-17] MEDS ORDERED: ceFAZolin 1GM VL ONE (13:49)
[2019-04-17 13:55] LABS: Urine Amorphous Crystal MANY /hpf (None Seen); Urine Bacteria FEW /hpf (None Seen); Urine Blood 2+ /uL (Negative); Urine Specific Gravity 1.017 (1.001-1.035); Urine WBC 59 /hpf (0 - 5)
[2019-04-17] MEDS ORDERED: fentaNYL CITRATE 100 MCG/2 ML VL IV PRN (15:00)
[2019-04-17] MEDS ORDERED: ACCU-CHEK COMFORT CURVE STRIP VI ONE (15:00)
[2019-04-17] MEDS ORDERED: HYDROmorphone HCL 2 MG/ML VL IV PRN (15:00)
[2019-04-17] MEDS ORDERED: MORPHINE SULF INJ 2 MG/ML SYRINGE 1ML IV PRN (15:00)
--- NOTE | 2019-04-17 15:30 | NUR ---
PT IS BACK TO HER ROOM VIA HOSPITAL BED, AWAKE, ALERT ORIENTED X4, NO DISTRESS NOTED, DRESSING IS DRY CLEAN INTACT AT THE LEFT GLUTEAL AREA
--- NOTE | 2019-04-17 15:35 | NUR ---
PT IV SL NOTED AT THE LEFT DORSAL FOOT 22G SL, STATED < AFTER I GOT IN THE OR MY IV IN MY HAND STOPPED WORKING>
--- NOTE | 2019-04-17 16:10 | NUR ---
DR RUSSO AT BED SIDE EXAMINING PT SURGICAL SITE, DRESSING IS INTACT AT THE LEFT GLUTEAL AREA WITH SMALL AMOUNT OF BLOOD NOTED
--- NOTE | 2019-04-17 16:16 | NUR ---
PAGE DR KING PER DR RUSSO REQUEST TO OBTAIN CLEARANCE ON HIS END FOR DISCHARGE PLANING
--- NOTE | 2019-04-17 16:21 | NUR ---
DR VEGA CALLED BACK, NO MORE INTERVENTION ON HIS SIDE, JUST REMOVE PACKING IN 24 HR AND SITZ BATH
[2019-04-17] MEDS ORDERED: DEXTROSE (50%) 50ML SYRG IV PRN (16:30)
[2019-04-17 16:48] VITALS: BP 120/60
[2019-04-17] MEDS: PANTOPRAZOLE 40 MG TAB PO SCH (18:07)
--- NOTE | 2019-04-17 18:10 | NUR ---
OUT TO SMOKE VIA WHEEL CHAIR WITH HER FAMILY
--- NOTE | 2019-04-17 18:37 | NUR ---
PT IS BACK TO HER ROOM, CONTINUE IV ANTIBIOTICS
--- NOTE | 2019-04-17 19:30 | NUR ---
Opening Shift Note Assumed care of patient. Patient is awake and alert. No S/S of distress/SOB or pain. Instructed on POC and to call for assist PRN, will continue to monitor for changes. Bed locked in lowest position and bed rails up x2. Call light within reach.
--- NOTE | 2019-04-17 19:40 | NUR ---
Patient had watery bowel movement and all linen changed
[2019-04-17 21:00] VITALS: BP 128/71
--- NOTE | 2019-04-17 21:55 | NUR ---
Colace medication held d/t watery loose stool
--- NOTE | 2019-04-17 23:00 | NUR ---
Dressing changed d/t soil from watery stool. Dressed with gauze pads and medipore tape
[2019-04-18] MEDS: PIPERACILLIN-TAZOB 2.25GM 50 ML IV SCH ×3 (01:06→14:30)
[2019-04-18] MEDS: MORPHINE SULF INJ 2 MG/ML SYRINGE 1ML IV PRN ×3 (03:30→15:36)
[2019-04-18 04:30] VITALS: BP 116/66
[2019-04-18] MEDS: VANCOMYCIN 1GM/250ML 250 ML IV SCH (05:50)
[2019-04-18 06:29] LABS: Basophils # (auto) 0 uL; Basophils % (auto) 0.4 % (0.0-2.0); Eosinophils # (auto) 0.1 uL; Eosinophils % (auto) 0.7 % (0.0-7.0); Hematocrit 33.5 % (36.0-46.0); Hemoglobin 11.4 g/dL (12.2-16.2); Lymphocytes # (auto) 1.2 uL; Mean Corpuscular Hemoglobin 31.6 pg (28.0-32.0); Mean Corpuscular Hgb Conc. 34.1 g/dL (32.0-36.0); Mean Corpuscular Volume 92.6 fL (80.0-100.0); Monocytes # (auto) 0.9 uL; Monocytes % (auto) 9.8 % (0.0-12.0); Neutrophils # (auto) 7.1 uL; Neutrophils % (auto) 76.1 % (37.0-80.0); Platelet Count (auto) 118 10^3/uL (140-450); Red Blood Cells 3.62 10^6/uL (4.0-5.20); Red Cell Distribution Width 15.4 % (11.8-14.3); White Blood Cell 9.4 10^3/uL (4.4-10.8)
[2019-04-18 06:40] LABS: BUN/Creatinine Ratio 18.2; Calcium 8.7 mg/dL (8.5-10.1); Potassium 3.8 mmol/L (3.5-5.1)
[2019-04-18] MEDS: ACCU-CHEK COMFORT CURVE STRIP VI SCH ×3 (07:12→17:00)
[2019-04-18] MEDS: InsuLIN REG 1unit/0.01ml Soln (100units/ml) SC SCH ×3 (07:13→17:00)
--- NOTE | 2019-04-18 07:40 | NUR ---
Opening Shift Note Assumed care of patient, comfortably sleeping on room air, breath sounds even and unlabored. No S/S of distress/SOB or pain. Bed at lowest locked position, bed rails up x2 and call light within reach. Will continue to monitor for changes Q1hr and PRN.
[2019-04-18 08:10] VITALS: BP 110/52
[2019-04-18 08:48] VITALS: BP 110/52
[2019-04-18] MEDS: LACTULOSE 20Gm/30ML SOLN PO SCH (10:00)
[2019-04-18] MEDS: DOCUSATE SOD 100 MG CAP PO SCH (10:00)
[2019-04-18] MEDS: PANTOPRAZOLE 40 MG TAB PO SCH (10:11)
--- NOTE | 2019-04-18 12:15 | NUR ---
Blood sugar was 443, patient is alert and oriented x4. No s/s of distress noted. Per protocol notified Dr. Fritz Villar. Awaiting call back.
--- NOTE | 2019-04-18 12:25 | NUR ---
BM Patient had a loose BM in toilet.
[2019-04-18 12:51] VITALS: BP 103/57
[2019-04-18] MEDS ORDERED: FLUCONAZOLE 100 MG TAB PO ONE (15:30)
--- NOTE | 2019-04-18 15:30 | NUR ---
LEFT GLUTEAL ABSCESS UNPACKED AND CLEANSED WITH WOUND CLEANSER , PATTED DRY WITH 4X4'S AND COVERED WITH STERILE GAUZE AND CONTAINED WITH STERI STRIPS. PATIENT TOLERATED WELL. DR. RUSSO AWARE.
[2019-04-18] MEDS ORDERED: SULF400T11 PO (15:33)
[2019-04-18] MEDS ORDERED: FLUC200T50 PO (15:33)
[2019-04-18] MEDS ORDERED: SULFAMETHOX W/TRIMETH(800/160MG) DS TAB PO SCH (15:45)
[2019-04-18 16:00] VITALS: BP 103/57
[2019-04-18] MEDS ORDERED: INSULIN LANTUS (GLARGINE) 1 /0.01ml (100units/ml) SC ONE (16:00)
[2019-04-18] MEDS ORDERED: InsuLIN REG 1unit/0.01ml Soln (100units/ml) SC ONE ×2 (16:00→18:30)
--- NOTE | 2019-04-18 16:00 | NUR ---
IV removal Patient requests IV to be discontinued. IV DC'd with clean sterile technique, catheter fully intact. Pressure dressing applied to site. Patient tolerated well.
--- NOTE | 2019-04-18 16:00 | NUR ---
ACCU CHECKS BLOOD SUGAR CHECK 543. AWARE ORDERS RECEIVED. Addendum: 04/18/19 at 1805 by Melissa Moody RN RE-CHECKED BLOOD SUGAR 430, NOTIFIED , AWAITING CALL BACK. Addendum: 04/18/19 at 1827 by Melissa Moody RN DR. RUSSO ORDERED 10 UNITS REGULAR INSULIN SQ ONCE .ORDERS RECEIVED AND READ BACK. PATIENT MAY GO HOME AFTER MEDICINE ADMINISTRATION. PER DOCTOR.
[2019-04-18 16:58] VITALS: BP 94/49
--- NOTE | 2019-04-18 17:27 | NUR ---
Discharge planning per consult. Patient has orders for referral to wound care clinic. Unable to make contact with a machine adjuster leader case trim at [facility], and patient is direct and does not have a medical group to refer to for wound care. No office information for PCP. Will follow up on 04.21.19 for additional information of which wound care clinic [facility] would prefer. Nurse Contreras was advised. Addendum: 04/21/19 at 1607 by MOSHE SCHWARZ Follow up with [facility] for wound care. Called [facility] at [phone], spoke with Sarah and was advised that for [employer], to fax the order to them and they will locate a contracted facility closet to the patient and contact patient regarding care services. Referral faxed to [phone]. Call ref ID # is [id number]. Fax confirmation received at 3:49pm. Addendum: 04/23/19 at 1243 by MOSHE SCHWARZ Wound care was redirected to [facility] to be done at the [facility] [phone]. Obtained auth from [facility] [id number] and start of care will be on Sunday at 9am per Laureen at [place] wound care clinic.
[2019-04-19] MEDS ORDERED: FLUCONAZOLE 100 MG TAB PO SCH (10:00)
[2019-04-29] MEDS ORDERED: INSUINJ18 SC (21:58)
[2019-04-29] MEDS ORDERED: AML5T PO (21:58)
== END 2019-04-18 20:10 | disposition home or self-care (01) | DRG 710 ==
LOC: ER 12:45 → TELE 12:46 → TELE-EAST 20:00
PROVIDERS: ADMIT Nurse Practitioner Acute Care; ATTEND Internal Medicine
PROC: 0D9Q0ZZ Drainage of Anus, Open Approach (ICD-10-PCS; principal; 2019-04-17 14:09)
DX: A41.9 Sepsis, unspecified organism (principal); N17.0 Acute kidney failure with tubular necrosis; B37.89 Other sites of candidiasis; E11.22 Type 2 diabetes mellitus with diabetic chronic kidney disease; D69.6 Thrombocytopenia, unspecified; E11.65 Type 2 diabetes mellitus with hyperglycemia; N18.3 Chronic kidney disease, stage 3 (moderate); E87.1 Hypo-osmolality and hyponatremia; E66.9 Obesity, unspecified; J44.9 Chronic obstructive pulmonary disease, unspecified; K59.00 Constipation, unspecified; E86.0 Dehydration; L02.31 Cutaneous abscess of buttock; I12.9 Hypertensive chronic kidney disease with stage 1 through stage 4 chronic kidney disease, or unspecified chronic kidney disease; F17.210 Nicotine dependence, cigarettes, uncomplicated; B96.1 Klebsiella pneumoniae [K. pneumoniae] as the cause of diseases classified elsewhere; D63.8 Anemia in other chronic diseases classified elsewhere; N39.0 Urinary tract infection, site not specified; K61.0 Anal abscess; F32.9 Major depressive disorder, single episode, unspecified; F41.9 Anxiety disorder, unspecified; B95.2 Enterococcus as the cause of diseases classified elsewhere; L03.317 Cellulitis of buttock; Z79.4 Long term (current) use of insulin; Z88.6 Allergy status to analgesic agent; Z91.041 Radiographic dye allergy status; Z88.8 Allergy status to other drugs, medicaments and biological substances; Z91.013 Allergy to seafood; Z86.73 Personal history of transient ischemic attack (TIA), and cerebral infarction without residual deficits; Z90.89 Acquired absence of other organs; Z90.710 Acquired absence of both cervix and uterus; Z83.3 Family history of diabetes mellitus; Z82.49 Family history of ischemic heart disease and other diseases of the circulatory system; Z80.9 Family history of malignant neoplasm, unspecified; Z72.89 Other problems related to lifestyle; Z68.32 Body mass index [BMI] 32.0-32.9, adult; Z79.899 Other long term (current) drug therapy; Z91.11 Patient's noncompliance with dietary regimen
CPT/HCPCS: 36415; 71045; 74176; 80048; 80053; 80202; 81001; 82962; 83036; 83605; 84702; 85025; 85610; 87040; 87070; 87075; 87077; 87081; 87186; 87205; 96361; 96374; G0378; J0690; J1815; J2250; J2405; J2543; J2704

== ENCOUNTER 2019-06-30 16:00 | Emergency (ER) | payer MEDICAID ==
[~2019-06-30] VITALS: Ht 157.5 cm; Wt 77.6 kg
[~2019-06-30 16:00] MED LIST changes: +AML5T PO; -CLIN300C8 PO; -CLOB0.05 TD; +INSUINJ18 SC; -PROBCAP12 OR; -SUCR1TAB PO
[2019-06-30 18:59] VITALS: BP 150/87
== END 2019-06-30 19:33 | disposition left against medical advice (07) ==
LOC: ER 16:00
DX: R73.9 Hyperglycemia, unspecified (principal); Z53.21 Procedure and treatment not carried out due to patient leaving prior to being seen by health care provider
CPT/HCPCS: 82962

== ENCOUNTER 2019-08-10 10:55 | Emergency (ER) | payer MEDICAID ==
[~2019-08-10] VITALS: Ht 157.5 cm; Wt 72.6 kg
[2019-08-10 12:34] LABS: Albumin 2.9 g/dL (3.4-5.0); Calcium 8.9 mg/dL (8.5-10.1); Potassium 4.1 mmol/L (3.5-5.1)
[2019-08-10 12:40] LABS: BUN/Creatinine Ratio 13.4; Bilirubin, Total 0.2 mg/dL (0.2-1.0); Total Protein 7.9 g/dL (6.4-8.2)
[2019-08-10 12:46] LABS: Basophils # (auto) 0 uL; Basophils % (auto) 0.4 % (0.0-2.0); Eosinophils # (auto) 0.2 uL; Eosinophils % (auto) 2.3 % (0.0-7.0); Hematocrit 39.2 % (36.0-46.0); Lymphocytes # (auto) 2.4 uL; Lymphocytes % (auto) 27.2 % (10.0-50.0); Mean Corpuscular Hemoglobin 29.8 pg (28.0-32.0); Mean Corpuscular Hgb Conc. 33.1 g/dL (32.0-36.0); Mean Corpuscular Volume 90.1 fL (80.0-100.0); Monocytes # (auto) 0.6 uL; Monocytes % (auto) 6.8 % (0.0-12.0); Neutrophils # (auto) 5.6 uL; Neutrophils % (auto) 63.3 % (37.0-80.0); Nucleated Red Blood Cells % 0.1 %; Platelet Count (auto) 232 10^3/uL (140-450); Red Blood Cells 4.35 10^6/uL (4.0-5.20); Red Cell Distribution Width 13.7 % (11.8-14.3); White Blood Cell 8.9 10^3/uL (4.4-10.8)
[2019-08-10] MEDS ORDERED: SODIUM CHLORIDE 0.9% 1,000 ML IV ONE (13:30)
[2019-08-10] MEDS ORDERED: SODIUM CHLORIDE 0.9% 1,000 ML IVB ONE (15:13)
[2019-08-10] MEDS ORDERED: cefTRIAXone 1GM/50ML D5W 50 ML IV ONE (15:15)
[2019-08-10] MEDS ORDERED: ONDANSETRON HCL 4 MG/2 ML VIAL IV ONE (15:15)
[2019-08-10] MEDS ORDERED: MORPHINE SULF INJ 2 MG/ML SYRINGE 1ML IV ONE (15:15)
[2019-08-10 15:42] LABS: Urine Bacteria FEW /hpf (None Seen); Urine Blood Negative /uL (Negative); Urine Specific Gravity 1.026 (1.001-1.035); Urine WBC 13 /hpf (0 - 5)
[2019-08-10] MEDS ORDERED: InsuLIN REG 1unit/0.01ml Soln (100units/ml) IV ONE (18:00)
[2019-08-10] MEDS ORDERED: MORPHINE SULF INJ 2 MG/ML SYRINGE 1ML IV PRN (18:00)
[2019-08-10] MEDS ORDERED: VANCOMYCIN PER PHARMACY 0 MG IV SCH (18:00)
[2019-08-10] MEDS ORDERED: DEXTROSE (50%) 50ML SYRG IV PRN (18:00)
[2019-08-10] MEDS ORDERED: HYDROcodone-ACET 5/325MG TAB PO PRN (18:00)
[2019-08-10] MEDS ORDERED: SODIUM CHLORIDE 0.9% 1,000 ML IV SCH (18:00)
[2019-08-10] MEDS ORDERED: ACETAMINOPHEN 500 MG TAB PO PRN (18:00)
[2019-08-10] MEDS ORDERED: ONDANSETRON HCL 4 MG/2 ML VIAL IV PRN (18:00)
[2019-08-10] MEDS: PIPERACILLIN-TAZOB 3.375GM 100 ML IV SCH ×2 (18:43→22:22)
[2019-08-10] MEDS ORDERED: CLINDAMYCIN 600MG IV 50 ML IV ONE (19:15)
[2019-08-10] MEDS ORDERED: InsuLIN REG 1unit/0.01ml Soln (100units/ml) SC SCH (20:00)
[2019-08-10] MEDS ORDERED: ACCU-CHEK COMFORT CURVE STRIP VI SCH (20:00)
[2019-08-10] MEDS ORDERED: VANCOMYCIN 1GM/250ML 250 ML IV SCH (22:00)
[2019-08-11 01:29] VITALS: BP 120/72
[2019-08-11] MEDS ORDERED: amLODIPine BESYLATE 5 MG TAB PO SCH (10:00)
[2019-08-11] MEDS ORDERED: FAMOTIDINE 20 MG TAB PO SCH (10:00)
== END 2019-08-11 05:04 | disposition home or self-care (01) ==
LOC: ER 10:56
DX: N39.0 Urinary tract infection, site not specified (principal); E11.65 Type 2 diabetes mellitus with hyperglycemia; L03.012 Cellulitis of left finger; L01.00 Impetigo, unspecified; L40.9 Psoriasis, unspecified; R11.2 Nausea with vomiting, unspecified; J45.909 Unspecified asthma, uncomplicated; I10 Essential (primary) hypertension; E78.5 Hyperlipidemia, unspecified; F17.210 Nicotine dependence, cigarettes, uncomplicated; Z90.710 Acquired absence of both cervix and uterus; Z90.89 Acquired absence of other organs; Z88.8 Allergy status to other drugs, medicaments and biological substances; Z91.013 Allergy to seafood; Z88.1 Allergy status to other antibiotic agents; Z79.4 Long term (current) use of insulin; Z79.899 Other long term (current) drug therapy
CPT/HCPCS: 36415; 71045; 73130; 73140; 73200; 74176; 80053; 81001; 81025; 82150; 82962; 83690; 83735; 85025; 93005; 96361; 96365; 96366; 96367; 96368; 96372; 96375; 96376; 99285; J0696; J1815; J2270; J2405; J2543; J3490; J7030

== ENCOUNTER 2019-09-07 19:03 | Inpatient (IN) | payer MEDICAID ==
[~2019-09-07] VITALS: Ht 157.5 cm; Wt 77.8 kg
[2019-09-07 20:31] LABS: Alanine Aminotransferase 10 U/L (13-56); Albumin 2.8 g/dL (3.4-5.0); Anion Gap 11 (5-15); Aspartate Aminotransferase 17 U/L (15-37); BUN/Creatinine Ratio 9.4; Blood Urea Nitrogen 14 mg/dL (7-18); Calcium 9.3 mg/dL (8.5-10.1); Carbon Dioxide 22 mmol/L (21-32); Chloride 97 mmol/L (98-107); GFR African American 48 mL/min; GFR Non-African American 39 mL/min; Potassium 4.3 mmol/L (3.5-5.1); Sodium 130 mmol/L (136-145)
[2019-09-07 20:34] LABS: Alkaline Phosphatase 144 U/L (45-117); Bilirubin, Total 0.7 mg/dL (0.2-1.0); Total Protein 8.6 g/dL (6.4-8.2)
[2019-09-07 21:01] LABS: Glucose 480 mg/dL (74-106)
[2019-09-07 22:16] LABS: Basophils # (auto) 0 10 ^3/uL (0-0.2); Basophils % (auto) 0.4 % (0.0-2.0); Eosinophils # (auto) 0.1 10 ^3/uL (0-0.8); Eosinophils % (auto) 1.1 % (0.0-7.0); Hematocrit 39.9 % (36.0-46.0); Hemoglobin 13.6 g/dL (12.2-16.2); Lymphocytes # (auto) 2.2 10 ^3/uL (0.4-5.4); Lymphocytes % (auto) 18.1 % (10.0-50.0); Mean Corpuscular Volume 88.3 fL (80.0-100.0); Monocytes # (auto) 1.1 10 ^3/uL (0-1.3); Monocytes % (auto) 9.2 % (0.0-12.0); Neutrophils # (auto) 8.6 10 ^3/uL (1.6-8.6); Neutrophils % (auto) 71.2 % (37.0-80.0); Platelet Count (auto) 178 10^3/uL (140-450); Red Blood Cells 4.52 10^6/uL (4.0-5.20); Red Cell Distribution Width 13.4 % (11.8-14.3); White Blood Cell 12.1 10^3/uL (4.4-10.8)
[2019-09-07] MEDS ORDERED: SODIUM CHLORIDE 0.9% 500 ML IV ONE (23:14)
[2019-09-07 23:40] LABS: INR 1.01 (0.9-1.15)
[2019-09-08] VITALS (8 sets, daily range): BP systolic 105–142; BP diastolic 47–72
[2019-09-08] MEDS ORDERED: MORPHINE SULFATE 4 MG/ML SYR/VIAL IV ONE (00:30)
[2019-09-08] MEDS ORDERED: ONDANSETRON HCL 4 MG/2 ML VIAL IV ONE (00:30)
[2019-09-08] MEDS ORDERED: SODIUM CHLORIDE 0.9% 2,200 ML IV ONE (01:00)
[2019-09-08] MEDS ORDERED: VANCOMYCIN PER PHARMACY 1,000 MG IV SCH (01:00)
[2019-09-08] MEDS ORDERED: VANCOMYCIN 1GM/250ML 250 ML IV ONE (01:15)
[2019-09-08] MEDS: PIPERACILLIN-TAZOB 3.375GM 100 ML IV SCH ×5 (01:33→23:52)
[2019-09-08 01:52] LABS: INR 1.03 (0.9-1.15); Partial Thromboplastin Time 27.9 sec (23.64-32.05)
[2019-09-08] MEDS ORDERED: SODIUM CHLORIDE 0.9% 1,000 ML IV SCH (02:37)
[2019-09-08] MEDS ORDERED: DEXTROSE (50%) 50ML SYRG IV PRN (02:45)
[2019-09-08] MEDS ORDERED: HYDROcodone-ACET 5/325MG TAB PO PRN (02:45)
[2019-09-08] MEDS ORDERED: ONDANSETRON HCL 4 MG/2 ML VIAL IV PRN (02:45)
[2019-09-08] MEDS ORDERED: ACETAMINOPHEN 325 MG TAB PO PRN (02:45)
[2019-09-08] MEDS ORDERED: DOCUSATE SOD 100 MG CAP PO PRN (02:45)
[2019-09-08] MEDS ORDERED: ALBUTEROL SULF 2.5 MG/0.5ML(0.5%) NEB SOLN NEB PRN (03:00)
[2019-09-08] MEDS: InsuLIN REG 1unit/0.01ml Soln (100units/ml) SC SCH ×6 (04:00→23:53)
[2019-09-08] MEDS: ACCU-CHEK COMFORT CURVE STRIP VI SCH ×6 (04:00→23:52)
--- NOTE | 2019-09-08 04:43 | NUR ---
MS admit from [facility] admitted to tele/MS after SBAR received. Patient oriented to Anne Brewer RN primary RN, unit, room, bed, and unit policies regarding patient care and visiting hours. Patient weighed by bedscale and encouraged to call if they need something. All questions and concerns addressed, patient verbalized understanding, will continue to monitor Note:
[2019-09-08] MEDS ORDERED: CLINDAMYCIN 600MG IV 50 ML IV SCH ×2 (05:00→06:00)
--- NOTE | 2019-09-08 05:00 | NUR ---
Noted ulcers on bilateral breast, mid abdomen, blackened left 2nd toe, ulcer on left pointer finger and scratches on anterior body and back and all extremities. Pictures taken for reference. Wound swab collected on left 2nd toe for culture. Wound consult and Dietary consults placed. Patient tolerated well
--- NOTE | 2019-09-08 05:05 | NUR ---
FOSTER DALTON states they want to leave the floor Against Medical Advice (AMA) to go outside and smoke. Patient encouraged to stay on floor and not smoke. Patient advised of the risks of leaving AMA. Patient verbalized understanding and signed required AMA form.
[2019-09-08] MEDS ORDERED: LORA0.5T12 PO (05:19)
[2019-09-08] MEDS: MORPHINE SULFATE 4 MG/ML SYR/VIAL IV PRN ×3 (06:35→18:39)
--- NOTE | 2019-09-08 07:35 | NUR ---
Opening Shift Note Assumed care of patient, currently sleeping, easily arousable via verbal stimuli, patient and alert and oriented x4, . No S/S of distress/SOB or pain reported at this time. Call light within reach, Instructed on POC and to call for assist PRN, will continue to monitor for changes Q1hr and PRN.
[2019-09-08 10:33] LABS: Basophils # (auto) 0 10 ^3/uL (0-0.2); Basophils % (auto) 0.5 % (0.0-2.0); Eosinophils # (auto) 0.2 10 ^3/uL (0-0.8); Eosinophils % (auto) 1.6 % (0.0-7.0); Hemoglobin 13.3 g/dL (12.2-16.2); Lymphocytes # (auto) 2.1 10 ^3/uL (0.4-5.4); Lymphocytes % (auto) 19.8 % (10.0-50.0); Mean Corpuscular Hgb Conc. 33.2 g/dL (32.0-36.0); Mean Corpuscular Volume 90.3 fL (80.0-100.0); Monocytes % (auto) 9.7 % (0.0-12.0); Neutrophils # (auto) 7.4 10 ^3/uL (1.6-8.6); Neutrophils % (auto) 68.4 % (37.0-80.0); Platelet Count (auto) 176 10^3/uL (140-450); Red Blood Cells 4.43 10^6/uL (4.0-5.20); Red Cell Distribution Width 13.4 % (11.8-14.3); White Blood Cell 10.8 10^3/uL (4.4-10.8)
--- NOTE | 2019-09-08 10:38 | NUR ---
WOUND CARE NOTE: Wound care in to see patient per wound care request regarding multiple wounds/skin issue that are noted present on admission. Bedside nurse took photograph of patient's wounds/skin issue upon admission for reference. Patient is 48 years old female with admitting diagnosis of Cellulitis of the Right Hand and L foot, Uncontrolled Diabetes. Patient is resting in bed in Rm. 208. Patient is awake,alert and oriented. She's ambulatory and self turning and repositioning. Her current Zohaib score is 20. Patient noted with multiple dry scabs to bilateral breast, abdomen, arms all over her body. Patient reported she has history of psoriasis. Scabs are dry, left open to air. Patient's distal L index finger noted with dry gangrene. Are is hard, black eschar, left open to air. Patient reported she's seen a doctor in [place] for her L index finger and diagnosed with gangrene,discharged home and prescribed antibiotic which she did not finished. Her L 2nd toe noted edematous and dark purple, no drainage/odor noted,left open to air. Patient's toe nails noted thick and long like of fungal to nails. Patient reported that she has not seen a doctor for her foot/toe issue. Patient has pending podiatry consult. No other wound noted. No further wound care monitoring needed at this time. RECOMMENDATION: Podiatry consult, will defer recommendation to manager desktop, reconsult for active wound, pressure injury, low Zohaib score of 12 and below. Addendum: 09/08/19 at 1214 by Leesa Esquivel RN Amended: Links added.
--- NOTE | 2019-09-08 12:05 | NUR ---
Respiratory note: Assessed pt for prn medneb tx. HR 91, RR 14, SPO2 96% on room air. Breath sounds clear throughout, pt denies any SOB, no s/s of respiratory distress noted. Medneb tx not indicated at this time. Pt aware to call for RT if needed.
--- NOTE | 2019-09-08 12:11 | NUR ---
MD DR PERALES AT BEDSIDE, DISCUSSING POC WITH PT, CONT CARE
[2019-09-08] MEDS ORDERED: diphenhdrAMINE HCL 50 MG/1 ML VL IV ONE (12:15)
--- NOTE | 2019-09-08 12:54 | NUR ---
PODIATRY DR BACON AT BEDSIDE, RE: CONSULTATION, PT AXOX4, CONT CARE
--- NOTE | 2019-09-08 13:06 | NUR ---
NUTRITION ASSESSMENT NOTES Please refer to link notes of nutrition screen form filed under the intervention section of the plan of care for further details. Est. Energy Needs: 4665-6293 kcal (20-25 kcal/kg BW). Est. Protein Needs: 88-110 gms/day (1.2-1.5 gms/kg BW). Will continue to monitor pertinent labs and reassess nutrient need prn Addendum: 09/08/19 at [address] Amended: Links added.
[2019-09-08 13:38] LABS: Anion Gap 6 (5-15); Carbon Dioxide 26 mmol/L (21-32); Chloride 105 mmol/L (98-107); Glucose 98 mg/dL (74-106); Potassium 3.4 mmol/L (3.5-5.1); Sodium 137 mmol/L (136-145)
[2019-09-08 13:39] LABS: BUN/Creatinine Ratio 9.3; Blood Urea Nitrogen 12 mg/dL (7-18); Calcium 8.8 mg/dL (8.5-10.1); GFR African American 56 mL/min; GFR Non-African American 46 mL/min
[2019-09-08] MEDS: VANCOMYCIN 1GM/250ML 250 ML IV SCH (16:46)
--- NOTE | 2019-09-08 18:02 | NUR ---
PAGED HAND I CUTTER HOSPITALIST PAGED, PT C/O GENERALIZED ITCHING, GATITO (MANAGER CHANGE) RETURNED PAGE, NEW ORDERS RECEIVED, CONT CARE
--- NOTE | 2019-09-08 19:15 | NUR ---
Opening Shift Note Received report from Martha MURILLO. Assumed care of patient, awake and alert. No S/S of distress/SOB or pain. Instructed on POC and to call for assist PRN. Fall precaution measures in place, will continue to monitor for changes Q1hr and PRN.
--- NOTE | 2019-09-08 19:39 | NUR ---
Respiratory note: AT BEDSIDE TO ASSESS FOR PRN TX. TX NOT INDICATED AT THIS TIME. BS ARE CLEAR T/O, RT NAME AND PAGER ASSIGNMENT WRITTEN ON PTS ROOM BOARD. WILL CONTINUE TO MONITOR.
--- NOTE | 2019-09-08 19:56 | NUR ---
Off unit to smoke.
[2019-09-08] MEDS: diphenhdrAMINE HCL 50 MG/1 ML VL IV PRN (20:41)
[2019-09-08] MEDS: INSULIN LANTUS (GLARGINE) 1 /0.01ml (100units/ml) SC SCH (22:00)
[2019-09-09] MEDS: ACCU-CHEK COMFORT CURVE STRIP VI SCH ×5 (04:07→20:03)
[2019-09-09] MEDS: InsuLIN REG 1unit/0.01ml Soln (100units/ml) SC SCH ×5 (04:08→20:15)
[2019-09-09] MEDS: diphenhdrAMINE HCL 50 MG/1 ML VL IV PRN ×3 (05:03→20:17)
[2019-09-09 05:10] VITALS: BP 117/55
[2019-09-09] MEDS: VANCOMYCIN 1GM/250ML 250 ML IV SCH (05:36)
--- NOTE | 2019-09-09 06:30 | NUR ---
IV removal IV site swelling. IV DC'd with clean sterile technique, catheter fully intact. Pressure dressing applied to site. Patient tolerated well.
--- NOTE | 2019-09-09 06:49 | NUR ---
IV insertion IV access obtained, via clean sterile technique by inserting 22 gauge catheter at R forearm after 2 attempt(s). IV secured properly. No trauma to site. Patient tolerated well.
[2019-09-09] MEDS: PIPERACILLIN-TAZOB 3.375GM 100 ML IV SCH ×3 (07:27→18:42)
[2019-09-09 09:00] VITALS: BP 108/59
[2019-09-09] MEDS: MORPHINE SULFATE 4 MG/ML SYR/VIAL IV PRN ×2 (09:07→20:03)
[2019-09-09 12:05] LABS: BUN/Creatinine Ratio 7.8; Calcium 8.7 mg/dL (8.5-10.1); Potassium 3.8 mmol/L (3.5-5.1)
[2019-09-09 14:13] VITALS: BP 112/65
[2019-09-09 16:28] VITALS: BP 110/60
--- NOTE | 2019-09-09 17:44 | NUR ---
IV insertion IV access obtained, via clean sterile technique by inserting 22 gauge catheter at after attempt(s). IV secured properly. No trauma to site. IV in right arm discontinued, tip intact, drg placed.
--- NOTE | 2019-09-09 18:00 | NUR ---
DRG SOILED, TOE CLEANED WITH WOUND CLEANSER SOLUTION AND DRY DRG PLACED.
--- NOTE | 2019-09-09 19:20 | NUR ---
Opening Shift Note Received report from Greg MURILLO. Assumed care of patient, awake and alert. No S/S of distress/SOB or pain. Instructed on POC and to call for assist PRN, will continue to monitor for changes Q1hr and PRN.
[2019-09-09] MEDS: INSULIN LANTUS (GLARGINE) 1 /0.01ml (100units/ml) SC SCH (21:57)
[2019-09-09 22:00] VITALS: BP_SYST 129; BP_SYST 149; BP_DIAS 69; BP_DIAS 82
[2019-09-10] MEDS: MORPHINE SULFATE 4 MG/ML SYR/VIAL IV PRN ×4 (00:02→23:08)
[2019-09-10] MEDS: ACCU-CHEK COMFORT CURVE STRIP VI SCH ×6 (00:03→20:26)
[2019-09-10] MEDS: PIPERACILLIN-TAZOB 3.375GM 100 ML IV SCH ×4 (00:03→18:19)
[2019-09-10] MEDS: InsuLIN REG 1unit/0.01ml Soln (100units/ml) SC SCH ×6 (00:04→20:27)
--- NOTE | 2019-09-10 02:37 | NUR ---
Respiratory note: NO PRN TX GIVEN AT THIS TIME, NOT INDICATED. SPO2 97% ON RA, HR 86, RR 16. NO SOB NOTED.
[2019-09-10] MEDS: diphenhdrAMINE HCL 50 MG/1 ML VL IV PRN ×4 (02:52→19:02)
[2019-09-10 05:00] VITALS: BP 149/68
--- NOTE | 2019-09-10 07:30 | NUR ---
Opening Shift Note Assumed care of patient, currently sleeping, easily arousable via verbal stimuli, patient alert and oriented x4. No S/S of distress/SOB reported at this time. Patient complains of pain 9/10 to left lower extremity. Will medicate per doctors orders. Call light within reach, Instructed on POC and to call for assist PRN, will continue to monitor for changes Q1hr and PRN.
--- NOTE | 2019-09-10 07:30 | NUR ---
Respiratory note: PT IS AWAKE, AND ALERT. NO RESPIRATORY DISTRESS NOTED. SPO2 98% ON RA, HR 102, RR 20, BS CLEAR BILATERALLY. PRN MEDNEB TX NOT INDICATED AT THIS TIME. PT INFORMED TO PUSH CALL BUTTON IF INCREASED WOB, SOB, OR WHEEZING OCCURS.
[2019-09-10 09:00] VITALS: BP 118/67
[2019-09-10 13:00] VITALS: BP 118/66
--- NOTE | 2019-09-10 14:00 | NUR ---
IV removal 22 G IV to left forearm accidentally pulled out by patient with catheter fully intact. Pressure dressing applied to site. Patient tolerated well.
--- NOTE | 2019-09-10 17:00 | NUR ---
IV insertion IV access obtained, via clean sterile technique by inserting 22 gauge catheter on the right upper arm after 2 attempt by this RN and 1 attempt by charge nurse. IV secured properly. No trauma to site. Patient tolerated well.
--- NOTE | 2019-09-10 18:18 | NUR ---
Respiratory note: PT RECIEVED ON RA. PT IS AWAKE AND ALERT AT THIS TIME. NO RESPIRATORY DISTRESS NOTED. SPO2 98%, HR 102, RR 18. BS CLR T/O. NO PRN TX INDICATED AT THIS TIME. PT AWARE TO CALL FOR TX'S IS SOB/WHEEZING.
[2019-09-10 18:23] VITALS: BP 144/79
--- NOTE | 2019-09-10 19:33 | NUR ---
Opening Shift Note Received report and assumed care of patient. Patient is awake and alert. No signs or symptoms of distress noted, patient currently denies pain. Instructed patient on plan of care and to call for assistance as needed. Will continue to monitor.
[2019-09-10 22:00] VITALS: BP 149/82
[2019-09-10] MEDS: INSULIN LANTUS (GLARGINE) 1 /0.01ml (100units/ml) SC SCH (23:10)
[2019-09-11] VITALS (7 sets, daily range): BP systolic 118–150; BP diastolic 55–81
[2019-09-11] MEDS: InsuLIN REG 1unit/0.01ml Soln (100units/ml) SC SCH ×5 (00:29→16:00)
[2019-09-11] MEDS: ACCU-CHEK COMFORT CURVE STRIP VI SCH ×5 (00:29→16:00)
[2019-09-11] MEDS: PIPERACILLIN-TAZOB 3.375GM 100 ML IV SCH ×4 (00:30→18:00)
[2019-09-11] MEDS: diphenhdrAMINE HCL 50 MG/1 ML VL IV PRN ×3 (01:28→14:05)
[2019-09-11] MEDS: MORPHINE SULFATE 4 MG/ML SYR/VIAL IV PRN (06:58)
[2019-09-11] MEDS ORDERED: AML5T PO (10:49)
--- NOTE | 2019-09-11 13:28 | NUR ---
assessment Patient is a 49 year old female who is alert and oriented. Patients cognitive abilities are intact. Prior to admission patient lived home with a friend and functioned with assistance. Per patient she has a [employer] caregiver 5 days a week. Per patient she will return home to her prior living arrangements post discharge and family will transport her home. Patient has a fww, cane, and a wheelchair for home use. Patients PCP is Dr Hermosillo. Patient has a gangrene toe. Patient may benefit from home health for wound care on discharge and possible IV ABX. I informed patient she has a right to speak to a social media marketing specialist regarding all care. I informed patient she has a right to participate in any and all discharge planning. Patient does not have a POA and advanced directive. I have offered patient information on POA and advanced directives. I informed the patient the advantages and benefits of having an Advanced Directive. Patient verbalized understanding and agreed to discharge plan. Addendum: 09/11/19 at 1332 by Cathy BROWN Amended: Links added.
--- NOTE | 2019-09-11 14:00 | NUR ---
ASSESSED PT FOR PRN MED NEB, PT IS ON RA WITH SPO2 100%, HR 89, RR 15, WITH CLEAR BS IN NO DISTRESS. NO INDICATION FOR PRN MED NEB AT THIS TIME.
--- NOTE | 2019-09-11 15:40 | NUR ---
D/C wound picture Patient refusing discharge pictures of her wounds taken. Patient educated on importance, patient verbalizes understanding but continues to state, " You don't have to take pictures they already did that when I came in nothing has changed". Patient was explained by this RN that the D/C picture is to have documentation of how her wounds looked prior to her discharge. Patient continues to refuse pictures taken. Patient continues to state, " Ya'll just weird and want to have pictures of my body parts you're not getting that without my permission. I'll let you change the dressing on my foot but you ain't taking pictures." Patient informed she has the right to refuse pictures, patient verbalized understanding. Will perform a change of dressing on left foot.
--- NOTE | 2019-09-11 16:48 | NUR ---
D/C planning Per consult for Wound Care. Faxed clinical information to [facility]. Per Jay with [facility] Ph:) they will see patient within 24-48hrs upon D/C day. Faxed Clinical information to [facility] requesting authorization for [facility]. Nurse Martinez was informed. Addendum: 09/11/19 at 1651 by LUZ MARIA HATHAWAY Amended: Links added.
--- NOTE | 2019-09-11 18:00 | NUR ---
Dressing changed Left 2nd toe wound cleansed and covered with gauze and curlex band.
--- NOTE | 2019-09-11 18:25 | NUR ---
Discharge instructions given as ordered. Encourage to follow up with PMD and Front End Software Engineer as instructed. Appointment information provided to patient. New prescription given to patient and medication education imparted. All questions and concerns addressed. Patient verbalized understanding. Patient refused discharge pictures taken of her wounds. IV removed with catheter intact, pressure dressing applied. Patient taken to vehicle via wheelchair with all personal belongings, accompanied by this RN. No distress noted at time of departure.
== END 2019-09-11 18:25 | disposition home or self-care (01) | DRG 197 ==
LOC: ER 19:03 → OVERFLOW 19:04 → CENTRAL 09-08 04:05
PROVIDERS: ADMIT Hospitalist; ATTEND Internal Medicine Nephrology
PROC: 0HBRXZZ Excision of Toe Nail, External Approach (ICD-10-PCS; principal; 2019-09-08)
PROC: 0HBNXZZ Excision of Left Foot Skin, External Approach (ICD-10-PCS; 2019-09-08)
DX: E11.52 Type 2 diabetes mellitus with diabetic peripheral angiopathy with gangrene (principal); N17.0 Acute kidney failure with tubular necrosis; I96 Gangrene, not elsewhere classified; E11.22 Type 2 diabetes mellitus with diabetic chronic kidney disease; I13.0 Hypertensive heart and chronic kidney disease with heart failure and stage 1 through stage 4 chronic kidney disease, or unspecified chronic kidney disease; N18.3 Chronic kidney disease, stage 3 (moderate); L03.115 Cellulitis of right lower limb; E11.65 Type 2 diabetes mellitus with hyperglycemia; B95.62 Methicillin resistant Staphylococcus aureus infection as the cause of diseases classified elsewhere; E78.00 Pure hypercholesterolemia, unspecified; F17.210 Nicotine dependence, cigarettes, uncomplicated; F41.9 Anxiety disorder, unspecified; F32.9 Major depressive disorder, single episode, unspecified; J44.9 Chronic obstructive pulmonary disease, unspecified; L40.9 Psoriasis, unspecified; Z91.041 Radiographic dye allergy status; Z91.013 Allergy to seafood; Z88.8 Allergy status to other drugs, medicaments and biological substances; Z79.899 Other long term (current) drug therapy; Z91.19 Patient's noncompliance with other medical treatment and regimen; Z90.710 Acquired absence of both cervix and uterus; Z90.89 Acquired absence of other organs; Z83.3 Family history of diabetes mellitus; Z80.9 Family history of malignant neoplasm, unspecified; Z82.49 Family history of ischemic heart disease and other diseases of the circulatory system; Z82.5 Family history of asthma and other chronic lower respiratory diseases
CPT/HCPCS: 36415; 36600; 71045; 73200; 73700; 80048; 80053; 82805; 82962; 83036; 83605; 84484; 84702; 85025; 85379; 85610; 85730; 87040; 87077; 87186; 87205; 96365; 96367; 96375; G0378; J1815; J2405; J2543; J3490

== ENCOUNTER 2019-10-02 15:18 | Inpatient (IN) | payer MEDICAID ==
[~2019-10-02] VITALS: Ht 157.5 cm; Wt 74.7 kg
[~2019-10-02 15:18] MED LIST changes: -TEMA15CA91 GT
[2019-10-02] MEDS ORDERED: SODIUM CHLORIDE 0.9% 500 ML IV ONE (15:27)
[2019-10-02 16:14] LABS: Basophils # (auto) 0 10 ^3/uL (0-0.2); Eosinophils # (auto) 0.1 10 ^3/uL (0-0.8); Eosinophils % (auto) 0.6 % (0.0-7.0); Hemoglobin 13.6 g/dL (12.2-16.2); Lymphocytes # (auto) 1.8 10 ^3/uL (0.4-5.4); Mean Corpuscular Hemoglobin 30.1 pg (28.0-32.0); Mean Corpuscular Hgb Conc. 32.6 g/dL (32.0-36.0); Monocytes # (auto) 0.8 10 ^3/uL (0-1.3)
[2019-10-02 16:16] LABS: Basophils % (auto) 0.4 % (0.0-2.0); Hematocrit 41.7 % (36.0-46.0); Lymphocytes % (auto) 19.6 % (10.0-50.0); Mean Corpuscular Volume 92.3 fL (80.0-100.0); Neutrophils # (auto) 6.3 10 ^3/uL (1.6-8.6); Neutrophils % (auto) 70.4 % (37.0-80.0); Platelet Count (auto) 220 10^3/uL (140-450); Red Blood Cells 4.52 10^6/uL (4.0-5.20); Red Cell Distribution Width 14.8 % (11.8-14.3)
[2019-10-02 16:30] LABS: Calcium 9.6 mg/dL (8.5-10.1); Potassium 4.9 mmol/L (3.5-5.1)
[2019-10-02] MEDS ORDERED: MORPHINE SULFATE 4 MG/ML SYR/VIAL IV ONE (16:30)
[2019-10-02] MEDS ORDERED: ONDANSETRON HCL 4 MG/2 ML VIAL IV ONE (16:30)
[2019-10-02 16:39] LABS: Bilirubin, Total 0.6 mg/dL (0.2-1.0)
[2019-10-02] MEDS ORDERED: InsuLIN REG 1unit/0.01ml Soln (100units/ml) IV ONE ×2 (16:45→17:00)
[2019-10-02] MEDS ORDERED: DEXTROSE (50%) 50ML SYRG IV PRN (17:15)
[2019-10-02] MEDS ORDERED: MORPHINE SULF INJ 2 MG/ML SYRINGE 1ML IV PRN (17:15)
[2019-10-02] MEDS ORDERED: ACETAMINOPHEN 500 MG TAB PO PRN (17:15)
[2019-10-02] MEDS ORDERED: NITROGLYCERIN 0.4 MG SL TAB SL PRN (17:15)
[2019-10-02] MEDS: SODIUM CHLORIDE 0.9% 1,000 ML IV SCH ×2 (17:34→23:48)
[2019-10-02] MEDS ORDERED: levoFLOXacin 500 MG TAB PO ONE (18:15)
[2019-10-02] MEDS: MORPHINE SULF INJ 2 MG/ML SYRINGE 1ML IV PRN ×2 (19:18→23:55)
[2019-10-02 20:00] VITALS: BP 92/64
[2019-10-02] MEDS: ACCU-CHEK COMFORT CURVE STRIP VI SCH (20:00)
[2019-10-02] MEDS: InsuLIN REG 1unit/0.01ml Soln (100units/ml) SC SCH (21:00)
[2019-10-02 23:12] VITALS: BP 92/64
[2019-10-02] MEDS: metroNIDAZOLE 500MG/100ML 100 ML IV SCH (23:36)
[2019-10-02] MEDS: FAMOTIDINE 20 MG TAB PO SCH (23:37)
[2019-10-02] MEDS: TEMAZEPAM 15 MG CAP PO PRN (23:49)
--- NOTE | 2019-10-02 23:56 | NUR ---
1999 PATIENT WAS ADMITTED THIS EVENING A CASE OF DKA AND Gs
--- NOTE | 2019-10-03 00:14 | NUR ---
1999 PATIENT ADMITTED FROM ER WITH A DIAGNOSIS OF GASTROENTERITIS AND DKA. PATIEN WAS ASSISTED WITH A BED BATH AND MADE COMFORTABLE. IV FLUID NS COMMENCED. 2344 PATIENT MEDICATED WITH MORPHINE 2MG FOR PAIN 8/10 ON THE SECOND TOE OF THE LEFT FOOT. 0000 LEFT FOOT SECOND TOE WOUND REASSESSED. APPEARED MACERATED INTERDIGITAL CLEFTS OF THE OTHER TOES SHOWED BROKEN SKIN WITH DISCHARGE. WOUNDS WERE WELL IRRIGATED AND CLEAN AND STERILE DRY GAUZE APPLIED.. NO PHOTO TAKEN THIS TIME PATIENT REFUSED.
[2019-10-03] MEDS: InsuLIN REG 1unit/0.01ml Soln (100units/ml) SC SCH ×6 (00:35→21:11)
[2019-10-03 00:58] LABS: Hematocrit 38.8 % (36.0-46.0); Hemoglobin 13.1 g/dL (12.2-16.2)
[2019-10-03] MEDS: traMADol HCL 50 MG TAB PO PRN (01:38)
[2019-10-03] MEDS: PROMETHAZINE HCL 25 MG/ML 1ML IV PRN ×2 (01:40→06:09)
--- NOTE | 2019-10-03 01:48 | NUR ---
0130 PATIENT COMPLAINED OF GENERALIZED ITHCHING AND PAIN. MEDICATED WITH PROMETHAZINE 12.5MG AND ULTYRAM 50 MG. Addendum: 10/03/19 at 0150 by QUINTON RUVALCABA RN RN ULTRAM NOT ULTYRAM.
[2019-10-03] MEDS: ACCU-CHEK COMFORT CURVE STRIP VI SCH ×6 (04:11→21:11)
--- NOTE | 2019-10-03 04:43 | NUR ---
0400 FSBS: 55 ORANGE JUICE GIVEN. PATIENT ALERT AND ORIENTEDX4. 0441: FSBS 120. PATIENT STABLE. MONITORING CONTINUES.
[2019-10-03 05:36] VITALS: BP 126/67
[2019-10-03] MEDS: metroNIDAZOLE 500MG/100ML 100 ML IV SCH ×3 (05:38→21:29)
[2019-10-03 06:10] LABS: Hematocrit 33.8 % (36.0-46.0); Hemoglobin 11.5 g/dL (12.2-16.2)
[2019-10-03 06:45] LABS: Albumin 2.4 g/dL (3.4-5.0); BUN/Creatinine Ratio 13.3; Calcium 9.2 mg/dL (8.5-10.1)
[2019-10-03] MEDS: SODIUM CHLORIDE 0.9% 1,000 ML IV SCH ×2 (06:45→13:15)
[2019-10-03 06:49] LABS: Bilirubin, Total 0.4 mg/dL (0.2-1.0); Total Protein 7.5 g/dL (6.4-8.2)
[2019-10-03] MEDS: FAMOTIDINE 20 MG TAB PO SCH (08:40)
[2019-10-03] MEDS: PANTOPRAZOLE 40 MG TAB PO SCH (08:40)
[2019-10-03] MEDS: diphenhdrAMINE HCL 25 MG CAP PO PRN ×2 (08:46→15:48)
[2019-10-03 09:14] VITALS: BP 145/67
[2019-10-03] MEDS ORDERED: levoFLOXacin 250 MG TAB PO SCH (10:00)
--- NOTE | 2019-10-03 10:23 | NUR ---
WOUND CARE NOTE: Wound care in to see patient per wound care request regarding "Left second toe" wound that are noted present on admission. Patient is 49 years old female with admitting diagnosis of DKA, Gastroenteritis. Patient is resting in bed in Rm. 291B. Patient is awake,alert and oriented. She's ambulatory and self turning and repositioning. Her current Zohaib score is 20. Patient noted with multiple dry scabs arms, back all over her body; patient reported she has history of psoriasis. Scabs are dry, left open to air. Patient's distal L index finger noted with hard, brown hyperkeratotic skin, area is clean and dry, left open to air. Patient reported she's seen a doctor in [facility] for her L index finger and diagnosed with gangrene. She added that she seen her doctor again and L index finger is getting better. Patient L 2nd toe noted blackened/dry gangrene, no drainage/odor noted. Cleansed patient's L foot second toe with wound cleanser,patted dry with gauze, applied dry sterile gauze in between toes, wrapped with Kerlix and secured with tape. Patient reported that she seen online program coordinator two weeks ago and has follow up appointment "supposed to be today or tomorrow" but she's here in hospital. Patient has pending podiatry consult. No other wound noted. No further wound care monitoring needed at this time. RECOMMENDATION: Nursing to continue Daily/PRN dry dressing to L 2nd toe wound per MD order while patient not seen by online program coordinator. Podiatry consult, will defer dressing recommendation to online program coordinator, reconsult for active wound, pressure injury, low Zohaib score of 12 and below. Addendum: 10/03/19 at 1304 by Leesa Esquivel RN Amended: Links added.
--- NOTE | 2019-10-03 10:30 | NUR ---
PT SEEN BY EGG GATHERER
--- NOTE | 2019-10-03 10:45 | NUR ---
PT REQUESTING TO SMOKE; PT ADVISED OF RISKS OF SMOKING; PT REPORTS SHE KNOWS ALREADY AND THAT SHE WILL SMOKE. PT REQUESTED TO SIGN AMA FORM TO GO SMOKE.
--- NOTE | 2019-10-03 11:00 | NUR ---
Dr. Acharya in to see pt. evaluating wound. Pt in agreement with plan of care.
[2019-10-03] MEDS: MORPHINE SULF INJ 2 MG/ML SYRINGE 1ML IV PRN ×2 (12:00→21:12)
[2019-10-03 12:08] LABS: Hematocrit 35.8 % (36.0-46.0)
[2019-10-03 13:00] VITALS: BP 155/79
[2019-10-03] MEDS ORDERED: AML5T PO (13:29)
[2019-10-03] MEDS ORDERED: MET50T PO (13:30)
[2019-10-03] MEDS ORDERED: INSU1INJ19 SC (13:34)
[2019-10-03] MEDS ORDERED: INSU100I49 SC (13:39)
--- NOTE | 2019-10-03 15:22 | NUR ---
MD PERALES CONTACTED FOR CONTINUATION OF HOME MEDS REGIMEN.
[2019-10-03] MEDS: SUCRALFATE 1 GM/10 ML ORAL SUSP PO SCH ×2 (15:49→21:29)
[2019-10-03] MEDS ORDERED: amLODIPine BESYLATE 5 MG TAB PO ONE (16:30)
[2019-10-03] MEDS ORDERED: METOPROLOL SUCCINATE XL 50 MG TAB PO ONE (16:30)
[2019-10-03 17:20] VITALS: BP 135/69
--- NOTE | 2019-10-03 18:40 | NUR ---
PT C/O PAIN TO IV SITE TO LEFT HAND #22. IV DC'D, CATHETER INTACT, NO PHLEBITIS. IV INSERTION TO RIGHT SHOULDER #22, FLUSHING WELL. IV SITE LABELED. NO COMPLICATIONS. PT TOLERATED PROCEDURE WELL.
--- NOTE | 2019-10-03 19:20 | NUR ---
Opening Shift Note Assumed care of patient.Patient is awake and alert. No S/S of distress/SOB or pain. Instructed on POC and to call for assist PRN, will continue to monitor for changes Q1hr and PRN. Bed locked in lowest position and bed rails up x2. Call light within reach.
--- NOTE | 2019-10-03 20:35 | NUR ---
Patient off unit to smoke. AMA signed
--- NOTE | 2019-10-03 20:50 | NUR ---
Patient back on unit from smoke break.
[2019-10-03 22:42] VITALS: BP 149/73
[2019-10-04] MEDS: ACCU-CHEK COMFORT CURVE STRIP VI SCH ×6 (01:44→20:11)
[2019-10-04] MEDS: InsuLIN REG 1unit/0.01ml Soln (100units/ml) SC SCH ×6 (01:45→20:28)
[2019-10-04] MEDS: MORPHINE SULF INJ 2 MG/ML SYRINGE 1ML IV PRN ×4 (04:03→20:11)
[2019-10-04] MEDS: PROMETHAZINE HCL 25 MG/ML 1ML IV PRN ×4 (04:04→20:34)
[2019-10-04] MEDS: diphenhdrAMINE HCL 25 MG CAP PO PRN ×3 (05:06→22:59)
[2019-10-04 05:12] LABS: Urine Bacteria FEW /hpf (None Seen); Urine Blood Negative /uL (Negative); Urine Mucus FEW (None Seen); Urine Specific Gravity 1.014 (1.001-1.035); Urine WBC 1 /hpf (0 - 5)
[2019-10-04 05:21] VITALS: BP 103/60
[2019-10-04] MEDS: metroNIDAZOLE 500MG/100ML 100 ML IV SCH ×3 (06:05→22:59)
[2019-10-04] MEDS: SUCRALFATE 1 GM/10 ML ORAL SUSP PO SCH ×4 (06:06→22:59)
--- NOTE | 2019-10-04 07:30 | NUR ---
Opening Shift Note Assuming care of patient at this time. Patient is awake and alert. Patient complains of pain, 8/10. Will medicate according to doctor's orders. Bed is locked and lowered with side rails up x2. Instructed patient on the plan of care for today and to call for assistance as needed. Call light within reach. Will continue to round hourly and as needed.
[2019-10-04 09:07] VITALS: BP 107/60
[2019-10-04] MEDS: FAMOTIDINE 20 MG TAB PO SCH (09:16)
[2019-10-04] MEDS: PANTOPRAZOLE 40 MG TAB PO SCH (09:16)
[2019-10-04] MEDS: amLODIPine BESYLATE 5 MG TAB PO SCH (09:17)
[2019-10-04] MEDS: METOPROLOL SUCCINATE XL 50 MG TAB PO SCH (09:18)
--- NOTE | 2019-10-04 09:21 | NUR ---
Pain Patient is complaining of pain, 9/10 to her foot. Will administer morphine per doctor's orders.
[2019-10-04] MEDS ORDERED: levoFLOXacin 250 MG TAB PO SCH (10:00)
--- NOTE | 2019-10-04 10:11 | NUR ---
Pain Reassessment Patient states her pain is now 7/10. Patient states she does not feel comfortable. Will notify
[2019-10-04 13:00] VITALS: BP 126/69
--- NOTE | 2019-10-04 13:00 | NUR ---
IV Benadryl Patient is requesting IV benadryl. Notified Dr. Villar. Patient already has Benadryl PO ordered. No new orders given at this time.
[2019-10-04 13:41] LABS: Basophils # (auto) 0 10 ^3/uL (0-0.2); Basophils % (auto) 0.5 % (0.0-2.0); Eosinophils # (auto) 0.1 10 ^3/uL (0-0.8); Eosinophils % (auto) 1.6 % (0.0-7.0); Hematocrit 32.3 % (36.0-46.0); Hemoglobin 10.9 g/dL (12.2-16.2); Lymphocytes # (auto) 1.7 10 ^3/uL (0.4-5.4); Mean Corpuscular Hemoglobin 29.5 pg (28.0-32.0); Mean Corpuscular Hgb Conc. 33.7 g/dL (32.0-36.0); Mean Corpuscular Volume 87.5 fL (80.0-100.0); Monocytes # (auto) 0.9 10 ^3/uL (0-1.3); Monocytes % (auto) 10.1 % (0.0-12.0); Neutrophils # (auto) 5.7 10 ^3/uL (1.6-8.6); Neutrophils % (auto) 67.8 % (37.0-80.0); Platelet Count (auto) 183 10^3/uL (140-450); Red Cell Distribution Width 13.9 % (11.8-14.3); White Blood Cell 8.4 10^3/uL (4.4-10.8)
--- NOTE | 2019-10-04 13:52 | NUR ---
Pain Patient is complaining of pain 9/10. Patient is requesting morphine at this time. Will administer per doctor's orders.
--- NOTE | 2019-10-04 14:22 | NUR ---
Pain Reassessment Patient is resting with eyes closed. Patient appears comfortable shows no signs or symptoms of distress or pain at this time.
[2019-10-04 14:23] LABS: Albumin 2.2 g/dL (3.4-5.0); Calcium 8.5 mg/dL (8.5-10.1)
[2019-10-04 14:26] LABS: BUN/Creatinine Ratio 10.8; Bilirubin, Total 0.4 mg/dL (0.2-1.0); Total Protein 7.5 g/dL (6.4-8.2)
[2019-10-04 17:01] VITALS: BP 105/62
--- NOTE | 2019-10-04 17:18 | NUR ---
Wound Care Performed wound care on patient's foot at this time. Dressing changed. Patient tolerated well.
--- NOTE | 2019-10-04 18:47 | NUR ---
Closing Shift Note Patient resting in bed with eyes closed. No distress noted. Will endorse care to the preformer impregnated fabrics RN.
--- NOTE | 2019-10-04 19:26 | NUR ---
Opening Shift Note Assumed care of patient, awake and alert. No S/S of distress/SOB or pain. Instructed on POC and to call for assist PRN, will continue to monitor for changes Q1hr and PRN. Safety precautions maintained bed rails 2x and bed is in lowest position. Call light and bedside table are within reach.
[2019-10-04] MEDS: TEMAZEPAM 15 MG CAP PO PRN (20:11)
--- NOTE | 2019-10-04 20:11 | NUR ---
Pain Pain level 9. Medicated per MD orders. Will continue to monitor Q1 and PRN.
--- NOTE | 2019-10-04 20:41 | NUR ---
Reassess Pain Patient resting in bed comfortably. Patient states pain level 3, tolerable. Will continue to monitor Q1 and PRN.
[2019-10-04 21:42] VITALS: BP 106/58
[2019-10-04] MEDS: INSULIN LANTUS (GLARGINE) 1 /0.01ml (100units/ml) SC SCH (22:58)
[2019-10-05] MEDS: InsuLIN REG 1unit/0.01ml Soln (100units/ml) SC SCH ×6 (00:54→20:19)
[2019-10-05] MEDS: MORPHINE SULF INJ 2 MG/ML SYRINGE 1ML IV PRN ×5 (02:08→22:48)
--- NOTE | 2019-10-05 02:08 | NUR ---
Pain Pain level 9. Medicated per MD orders. Will continue to monitor Q1 and PRN.
--- NOTE | 2019-10-05 02:38 | NUR ---
Pain Reassess Patient resting in bed comfortably. Pain level 2, tolerable. Will continue to monitor Q1 and PRN.
[2019-10-05] MEDS: PROMETHAZINE HCL 25 MG/ML 1ML IV PRN ×3 (03:34→22:50)
--- NOTE | 2019-10-05 04:43 | NUR ---
Endorsed care to Luisa MURILLO Gave report. At this time patient has no s/s of distress or SOB.
[2019-10-05 05:00] VITALS: BP 103/60
[2019-10-05] MEDS: ACCU-CHEK COMFORT CURVE STRIP VI SCH ×6 (05:04→20:17)
[2019-10-05] MEDS: metroNIDAZOLE 500MG/100ML 100 ML IV SCH ×3 (05:11→22:47)
[2019-10-05] MEDS: SUCRALFATE 1 GM/10 ML ORAL SUSP PO SCH ×4 (06:18→22:47)
--- NOTE | 2019-10-05 06:20 | NUR ---
PT C/O LEFT FOOT PAIN 9/10, GIVEN MORPHINE IV ORDERED. WILL REASSESS.
--- NOTE | 2019-10-05 06:50 | NUR ---
PT IS RESTING COMFORTABLY.
--- NOTE | 2019-10-05 07:30 | NUR ---
Opening Shift Note Assuming care of patient at this time. Patient is awake and alert. Patient has complaint of being cold. Patient has multiple blankets. Bed is locked and lowered with side rails up x2. Instructed patient on the plan of care for today and to call for assistance as needed. Call light within reach. Will continue to round hourly and as needed.
--- NOTE | 2019-10-05 08:03 | NUR ---
Refusing Insulin Patient is refusing insulin at this time. Patient states she does not need insulin for a blood sugar so low.
[2019-10-05 09:00] VITALS: BP 132/71
--- NOTE | 2019-10-05 09:00 | NUR ---
IV removal Informed by staff that patient's IV has "came out." Patient states, "it fell out." No trauma noted to site.
[2019-10-05] MEDS: INSULIN LANTUS (GLARGINE) 1 /0.01ml (100units/ml) SC SCH ×2 (10:00→22:36)
--- NOTE | 2019-10-05 10:00 | NUR ---
Page to Dr. Fragoso to Dr. Villar at this time. Patient is complaining of sharp pain in the left foot that is radiating up to her left arm. Patient is currently crying and upset because she doesn't, "know what's wrong." Dr. Villar verbalized understanding and will put in new orders.
[2019-10-05] MEDS: PANTOPRAZOLE 40 MG TAB PO SCH (10:04)
[2019-10-05] MEDS: FAMOTIDINE 20 MG TAB PO SCH (10:04)
[2019-10-05] MEDS: amLODIPine BESYLATE 5 MG TAB PO SCH (10:06)
[2019-10-05] MEDS: METOPROLOL SUCCINATE XL 50 MG TAB PO SCH (10:06)
[2019-10-05] MEDS ORDERED: CEFEPIME 1 GM in SODIUM CHL 0.9% 50 ML IV ONE (10:15)
--- NOTE | 2019-10-05 11:30 | NUR ---
IV insertion IV access obtained, via clean sterile technique by inserting 22 gauge catheter at right AC. IV secured properly. No trauma to site. Patient tolerated well.
--- NOTE | 2019-10-05 11:50 | NUR ---
Pain Patient is complaining of pain 9/10 to her left foot. Patient is requesting morphine at this time. Will administer per doctor's orders.
--- NOTE | 2019-10-05 12:20 | NUR ---
Pain Reassessment Patient is resting with eyes closed. Patient appears comfortable shows no signs or symptoms of distress or pain at this time.
[2019-10-05 12:51] VITALS: BP 102/54
[2019-10-05] MEDS: CEFEPIME 1 GM in SODIUM CHL 0.9% 50 ML IV SCH ×3 (15:00→23:26)
[2019-10-05 17:00] VITALS: BP 104/61
--- NOTE | 2019-10-05 17:18 | NUR ---
Pain Patient is complaining of pain 9/10 to her left foot. Patient is requesting morphine at this time. Will administer per doctor's orders.
--- NOTE | 2019-10-05 17:18 | NUR ---
Wound Care Performed wound care on patient's foot at this time. Dressing changed. Patient tolerated well.
--- NOTE | 2019-10-05 17:48 | NUR ---
Pain Reassessment Patient states her pain is now 7/10. Patient states she does not feel comfortable. The morphine does not bring her pain to a tolerable level. MD aware. No new orders given for pain.
--- NOTE | 2019-10-05 18:39 | NUR ---
Stool Sample Stool sample sent to lab at this time.
--- NOTE | 2019-10-05 19:18 | NUR ---
Closing Shift Note Patient is resting in bed, has just returned from smoking, resumed antibiotics. Report given. Will endorse care to the welder 2nd shift RN.
[2019-10-05 22:00] VITALS: BP 120/64
[2019-10-05] MEDS: diphenhdrAMINE HCL 25 MG CAP PO PRN (22:47)
[2019-10-05] MEDS: TEMAZEPAM 15 MG CAP PO PRN (22:49)
[2019-10-06] MEDS: InsuLIN REG 1unit/0.01ml Soln (100units/ml) SC SCH ×7 (01:12→23:51)
--- NOTE | 2019-10-06 01:30 | NUR ---
IV insertion IV access obtained, via clean sterile technique by inserting 22 gauge catheter at right wrist. IV secured properly. No trauma to site. Patient tolerated procedure well. IV removal IV on right AC DC'd with sterile technique, catheter fully intact. Pressure dressing applied to site. Patient tolerated procedure well.
[2019-10-06] MEDS: ACCU-CHEK COMFORT CURVE STRIP VI SCH ×7 (04:00→23:51)
[2019-10-06 05:08] VITALS: BP 96/54
[2019-10-06 06:05] LABS: Basophils # (auto) 0 10 ^3/uL (0-0.2); Basophils % (auto) 0.5 % (0.0-2.0); Eosinophils # (auto) 0.3 10 ^3/uL (0-0.8); Eosinophils % (auto) 3.4 % (0.0-7.0); Hematocrit 30.5 % (36.0-46.0); Lymphocytes # (auto) 2.5 10 ^3/uL (0.4-5.4); Lymphocytes % (auto) 29.4 % (10.0-50.0); Mean Corpuscular Hemoglobin 30.6 pg (28.0-32.0); Mean Corpuscular Hgb Conc. 32.8 g/dL (32.0-36.0); Mean Corpuscular Volume 93.3 fL (80.0-100.0); Monocytes # (auto) 0.9 10 ^3/uL (0-1.3); Neutrophils # (auto) 4.8 10 ^3/uL (1.6-8.6); Neutrophils % (auto) 55.7 % (37.0-80.0); Platelet Count (auto) 161 10^3/uL (140-450); Red Blood Cells 3.27 10^6/uL (4.0-5.20); Red Cell Distribution Width 14.9 % (11.8-14.3); White Blood Cell 8.6 10^3/uL (4.4-10.8)
[2019-10-06 06:12] LABS: INR 1.18 (0.9-1.15); Partial Thromboplastin Time 25.4 sec (23.64-32.05)
[2019-10-06] MEDS: metroNIDAZOLE 500MG/100ML 100 ML IV SCH ×2 (06:16→13:38)
[2019-10-06 06:23] LABS: Potassium 3.6 mmol/L (3.5-5.1)
[2019-10-06 06:33] LABS: Albumin 2.1 g/dL (3.4-5.0); BUN/Creatinine Ratio 12.3; Bilirubin, Total 0.2 mg/dL (0.2-1.0); Calcium 8.4 mg/dL (8.5-10.1)
[2019-10-06] MEDS: SUCRALFATE 1 GM/10 ML ORAL SUSP PO SCH ×4 (06:48→21:44)
[2019-10-06] MEDS: CEFEPIME 1 GM in SODIUM CHL 0.9% 50 ML IV SCH (07:00)
[2019-10-06] MEDS ORDERED: BUPIVACAINE HCL 50 ML ONE (07:11)
[2019-10-06] MEDS ORDERED: LIDOCAINE 1% HCL (LOCAL ANESTH.) INJ 20ML MDV ONE (07:11)
--- NOTE | 2019-10-06 07:16 | NUR ---
Endorsed care to Emerald MURILLO Informed that patient was taken down to OR via gurney for procedure.
--- NOTE | 2019-10-06 07:17 | NUR ---
REPORT RECEIVED FROM LICENSED NURSING ASSISTANT Patient is in OR for procedure.
[2019-10-06] MEDS ORDERED: MIDAZOLAM HCL 1MG/1ML-2 ML VIAL ONE (07:46)
[2019-10-06] MEDS ORDERED: fentaNYL CITRATE 100 MCG/2 ML VL ONE (07:46)
[2019-10-06] MEDS ORDERED: PROPOFOL 10 MG/ML 20 ML IV ONE (07:47)
--- NOTE | 2019-10-06 08:00 | NUR ---
PATIENT AT PROCEDURE WILL ASSESS PATIENT WHEN SHE IS BACK FROM OR.
[2019-10-06 08:50] VITALS: BP 115/68
[2019-10-06] MEDS ORDERED: ACCU-CHEK COMFORT CURVE STRIP VI ONE (09:15)
[2019-10-06] MEDS ORDERED: HYDROmorphone HCL 2 MG/ML VL IV PRN (09:15)
[2019-10-06] MEDS ORDERED: MIDAZOLAM HCL 1MG/1ML-2 ML VIAL IV PRN (09:15)
[2019-10-06] MEDS ORDERED: LABETALOL HCL 5 MG/ML 4ML SYRINGE IV PRN (09:15)
[2019-10-06] MEDS ORDERED: ONDANSETRON HCL 4 MG/2 ML VIAL IV PRN (09:15)
[2019-10-06] MEDS ORDERED: MORPHINE SULFATE 4 MG/ML SYR/VIAL IV PRN (09:15)
[2019-10-06] MEDS ORDERED: ePHEDrine SULFATE 50 MG/ML AMP IV PRN (09:15)
--- NOTE | 2019-10-06 09:30 | NUR ---
PATIENT IN ROOM FROM OR Patient is on her right side with blankets covering her head. Patient moaning and moved to cover her face more. Surgical site assessed, dressing is clean dry and intact. Patient was encouraged to call for assistance as needed.
[2019-10-06] MEDS: INSULIN LANTUS (GLARGINE) 1 /0.01ml (100units/ml) SC SCH ×2 (10:00→22:03)
[2019-10-06] MEDS: PANTOPRAZOLE 40 MG TAB PO SCH (10:00)
[2019-10-06] MEDS: amLODIPine BESYLATE 5 MG TAB PO SCH (10:00)
[2019-10-06] MEDS: METOPROLOL SUCCINATE XL 50 MG TAB PO SCH (10:00)
[2019-10-06] MEDS: FAMOTIDINE 20 MG TAB PO SCH (10:00)
--- NOTE | 2019-10-06 10:15 | NUR ---
PATIENT REFUSING ASSESSMENT AND MEDICATIONS When attempting to check patient blood glucose and obtain vital signs patient refused, she was informed that medications were due and she did not respond, she moved blankets to cover her face. Patient was educated on the need for medications and assessments. Patient continued to cover her head with blanket and refused to respond.
--- NOTE | 2019-10-06 11:19 | NUR ---
PATIENT REFUSING ACCUCHECK attempted to check patient blood glucose. Patient refused stating her "hands are cold". I educated the patient on the blood sugar check and its importance and she did not respond. Will continue to educate.
--- NOTE | 2019-10-06 13:12 | NUR ---
ANGELLA AT BEDSIDE Updated on patient status, no new orders received.
[2019-10-06] MEDS ORDERED: CEFEPIME 2 GM in SODIUM CHL 0.9% 50 ML IV SCH (13:16)
[2019-10-06 13:40] VITALS: BP 111/57
[2019-10-06] MEDS: MORPHINE SULF INJ 2 MG/ML SYRINGE 1ML IV PRN ×3 (13:46→22:05)
[2019-10-06] MEDS: PROMETHAZINE HCL 25 MG/ML 1ML IV PRN ×3 (13:47→22:05)
[2019-10-06] MEDS: CEFEPIME 2 GM in SODIUM CHL 0.9% 50 ML IV SCH ×2 (14:48→21:44)
[2019-10-06 16:51] VITALS: BP 111/68
--- NOTE | 2019-10-06 19:00 | NUR ---
Opening Shift Note Assumed care of patient, awake and alert. No S/S of distress/SOB or pain. Instructed on POC and to call for assist PRN, will continue to monitor for changes Q1hr and PRN. patient asked to go smoke. Will follow up.
--- NOTE | 2019-10-06 19:59 | NUR ---
Patient went out to smoke. Talked to patient about the risks, patient is post surgery, went over why smoking would not be a good idea for her at this moment. Patient stated that she understood, but that she is a smoker and needs to have it, patient was going to get up and walk down without assistance. Got a wheelchair for patient to use. Patient refused to sit in the wheelchair to go down, but used it for support. Told patient that it would be best to sit and the doctors orders were to have non weight bearing on her left foot. Patient understood but stated that she needed to walk and refused to sit. Patient got to the elevator fine. Will monitor patients absence.
[2019-10-06 20:00] VITALS: BP 134/68
--- NOTE | 2019-10-06 20:25 | NUR ---
Patient back from smoking. Patient appeared fine when she came back. No distress noted. Patients foot dressing was dry and intact. Will continue to monitor.
[2019-10-06 22:47] VITALS: BP 134/68
--- NOTE | 2019-10-06 23:52 | NUR ---
Patient not here for 1999 accucheck, Patient refuses to be stuck so many times, told patient I could do one at 2200 for her 1999 and her 0000, patient agreed to get checked and receive the medication that was due from her accucheck.
[2019-10-07] VITALS (7 sets, daily range): BP systolic 103–126; BP diastolic 56–73
[2019-10-07] MEDS: ACCU-CHEK COMFORT CURVE STRIP VI SCH ×6 (04:20→19:57)
[2019-10-07] MEDS: InsuLIN REG 1unit/0.01ml Soln (100units/ml) SC SCH ×5 (04:20→20:13)
[2019-10-07] MEDS: PROMETHAZINE HCL 25 MG/ML 1ML IV PRN ×3 (05:02→19:57)
[2019-10-07] MEDS: MORPHINE SULF INJ 2 MG/ML SYRINGE 1ML IV PRN ×2 (05:02→19:57)
--- NOTE | 2019-10-07 05:17 | NUR ---
Low blood sugar blood sugar was checked at 419 with a blood sugar of 51. Gave patient some apple juice and orange juice as patient was able to swallow and talk a little. The patient kept coming in and out and had to be woken up to continue drinking. At 429 the blood sugar was checked again coming out at 59mg/dl. The patient was still coming in and out of sleep, and had to be woken up to drink a bit more, talked to patient who could state her name, , where she was, and why she was here. At 444 blood sugar was checked again and came out 80mg/dl. Patient is on an aggressive scale and was given 16u of insulin at around 2200 along with 20units of lantus when she had a blood sugar of 303mg/dl. Patient has a history of being noncompliant and has been denying glucose checks and insulin the past 24 hours. Patients other vitals read: B/P 94/54, HR: 102, O2: 96%, Respirations: 19. Bp was taken again reading 101/55, and then checked 10 minutes later reading 103/56, with a heart rate staying consistent at 98. Will continue to monitor and notify MD of events. Addendum: 10/07/19 at 0530 by Alia Brito RN MD was paged.
[2019-10-07] MEDS ORDERED: DEXTROSE (50%) 50ML SYRG IV PRN (06:15)
[2019-10-07] MEDS: SUCRALFATE 1 GM/10 ML ORAL SUSP PO SCH ×4 (06:47→22:20)
[2019-10-07] MEDS: amLODIPine BESYLATE 5 MG TAB PO SCH (09:39)
[2019-10-07] MEDS: METOPROLOL SUCCINATE XL 50 MG TAB PO SCH (09:40)
[2019-10-07] MEDS: FAMOTIDINE 20 MG TAB PO SCH (09:52)
[2019-10-07] MEDS: PANTOPRAZOLE 40 MG TAB PO SCH (09:52)
[2019-10-07] MEDS: INSULIN LANTUS (GLARGINE) 1 /0.01ml (100units/ml) SC SCH ×2 (09:59→22:21)
[2019-10-07] MEDS: CEFEPIME 2 GM in SODIUM CHL 0.9% 50 ML IV SCH ×2 (10:02→22:20)
--- NOTE | 2019-10-07 12:28 | NUR ---
assessment Patient is a 49 year old female who is alert and oriented. Patients cognitive abilities are intact. Prior to admission patient lived home with a friend and functioned with assistance. Per patient she has a SS caregiver Emelyn 5 days a week. Per patient she would like SNF placement for IV ABX and wound care on discharge. Patient has a fww, and a cane for home use. Patients PCP is Dr Anguiano. Patient has a gangrene toe. Patient had amputation of toe yesterday. I informed patient she has a right to speak to a social worker aide regarding all care. I informed patient she has a right to participate in any and all discharge planning. Patient does not have a POA and advanced directive. I have offered patient information on POA and advanced directives. I informed the patient the advantages and benefits of having an Advanced Directive. Patient verbalized understanding and agreed to discharge plan. Addendum: 10/07/19 at 1230 by Cathy BROWN Amended: Links added.
--- NOTE | 2019-10-07 19:00 | NUR ---
Opening Shift Note Assumed care of patient, awake and alert. No S/S of distress/SOB. Patient complains of pain in her left leg, stating it is a 10/10. Instructed on POC and to call for assist PRN, will continue to monitor for changes Q1hr and PRN. Patient in the lowest possible position with call light within reach.
--- NOTE | 2019-10-07 21:00 | NUR ---
Patient stated that her IV fell out. Will evaluate and assess patient for new IV.
--- NOTE | 2019-10-07 21:15 | NUR ---
IV removal IV DC'd with clean sterile technique, catheter fully intact. Pressure dressing applied to site. Patient tolerated well.
--- NOTE | 2019-10-07 21:30 | NUR ---
IV insertion IV access obtained, via clean sterile technique by inserting gauge catheter in her right hand after 2 attempts. IV secured properly. No trauma to site. Patient tolerated well.
--- NOTE | 2019-10-07 22:30 | NUR ---
Patient went AMA to smoke.
[2019-10-08] MEDS: InsuLIN REG 1unit/0.01ml Soln (100units/ml) SC SCH ×6 (00:30→19:49)
[2019-10-08] MEDS: ACCU-CHEK COMFORT CURVE STRIP VI SCH ×6 (00:36→19:49)
[2019-10-08] MEDS: PROMETHAZINE HCL 25 MG/ML 1ML IV PRN ×6 (00:39→22:28)
[2019-10-08] MEDS: MORPHINE SULF INJ 2 MG/ML SYRINGE 1ML IV PRN ×7 (00:40→22:29)
[2019-10-08 05:00] VITALS: BP 123/69
[2019-10-08 05:14] LABS: Hematocrit 33.3 % (36.0-46.0); Hemoglobin 10.8 g/dL (12.2-16.2); Mean Corpuscular Hemoglobin 28.5 pg (28.0-32.0); Mean Corpuscular Hgb Conc. 32.4 g/dL (32.0-36.0); Platelet Count (auto) 223 10^3/uL (140-450); Red Blood Cells 3.79 10^6/uL (4.0-5.20); Red Cell Distribution Width 14.3 % (11.8-14.3); White Blood Cell 11.7 10^3/uL (4.4-10.8)
[2019-10-08 05:17] LABS: Basophils % (manual) 0 (0.0-2.0); Blast Cells 0; Metamyelocytes % 0; Myelocytes % 0; Promyelocytes % 0; Reactive Lymphocytes 0
[2019-10-08 05:18] LABS: Calcium 8.7 mg/dL (8.5-10.1); Potassium 3.9 mmol/L (3.5-5.1)
--- NOTE | 2019-10-08 06:00 | NUR ---
Patient wound not cleaned. When going to clean there was no dakins. Pharmacy was closed and could not obtain. Called pharmacy in the AM for Dakins solutions but could not send as there was no order for any. Will endorse to day shift for orders for dakins. Dressing to be change BID.
[2019-10-08] MEDS: SUCRALFATE 1 GM/10 ML ORAL SUSP PO SCH ×4 (06:39→21:59)
[2019-10-08 06:48] LABS: Band Neutrophils % (manual) 1; Eosinophils % (manual) 2 (0-7); Lymphocytes % (manual) 39 (10.0-50.0); Monocytes % (manual) 9 (0-12)
--- NOTE | 2019-10-08 07:30 | NUR ---
AM SHIFT REPORT RECEIVED RECEIVED REPORT FROM RITA STEINBERG
[2019-10-08 08:00] VITALS: BP 117/61
--- NOTE | 2019-10-08 08:01 | NUR ---
PATIENT NOT IN ROOM, AMA FOR SMOKE. WILL CONTINUE TO MONITOR
[2019-10-08 08:15] VITALS: BP 117/65
--- NOTE | 2019-10-08 09:00 | NUR ---
PATIENTS IV FROM RIGHT HAND WAS PULLED OUT. CATHETER TIP INTACT. MEDICATIONS PUT ON HOLD UNTIL IV CAN BE REINITIATED.
[2019-10-08] MEDS: FAMOTIDINE 20 MG TAB PO SCH (09:49)
[2019-10-08] MEDS: PANTOPRAZOLE 40 MG TAB PO SCH (09:49)
[2019-10-08] MEDS: METOPROLOL SUCCINATE XL 50 MG TAB PO SCH (09:50)
--- NOTE | 2019-10-08 09:50 | NUR ---
IV insertion IV access obtained, via clean sterile technique by inserting 22gauge catheter at after attempt(s). IV secured properly. No trauma to site. Patient tolerated well. NOTE:
[2019-10-08] MEDS: amLODIPine BESYLATE 5 MG TAB PO SCH (09:51)
[2019-10-08] MEDS: INSULIN LANTUS (GLARGINE) 1 /0.01ml (100units/ml) SC SCH ×2 (09:58→22:11)
[2019-10-08] MEDS: CEFEPIME 2 GM in SODIUM CHL 0.9% 50 ML IV SCH ×2 (11:04→22:00)
[2019-10-08 12:00] VITALS: BP 117/53
--- NOTE | 2019-10-08 12:30 | NUR ---
PATIENT COMPLAINTS OF LEFT ITCHING PATIENT COMPLAINING OF LEFT FOOT ITCHING, AT THE SITE OF LEFT 2ND TOE AMPUTATION/.
--- NOTE | 2019-10-08 13:30 | NUR ---
COMMUNICATION WITH MINES INSPECTOR LEFT MESSAGE WITH MINES INSPECTOR REGARDING PATIENT PLACEMENT. PT WANTED TO GO TO REHAB AND HAS NOW CHANGE MIND, AND WOULD LIKE TO D/C TO HOME. WILL CONTINUE TO MONITOR.
--- NOTE | 2019-10-08 13:33 | NUR ---
PATIENT OUT OF ROOM PATIENT WALING THE UNIT, NO S/S OF DISTRESS OR PAIN.
--- NOTE | 2019-10-08 13:40 | NUR ---
PATIENT OFF UNIT PATIENT AMA, OFF UNIT, TO SUSTAINABLE DESIGN CONSULTANT CIGARETTES FROM FAMILY MEMBER.
--- NOTE | 2019-10-08 14:01 | NUR ---
COMMUNICATION WITH FOUNDRY OPERATOR SPOKE TO JESUS, SS RECOMMENDS SNF PLACEMENT FOR WOUND CARE. PATIENT AGREES WITH PLAN OF TREATMENT/CARE. WILL PLACE ORDER AND IN FORM DR. ONOFRE.
--- NOTE | 2019-10-08 14:04 | NUR ---
PAGED DR. PERALES NOTIFY ABOUT SS RECOMMENDATION OF SNF PLACEMENT, WILL WAIT FOR RESPONSE.
--- NOTE | 2019-10-08 14:30 | NUR ---
WOUND CARE REMOVED SOILED DRESSING, NOTED BLEEDING ON PRIMARY DRESSING ON THE BOTTOM OF FOOT, KERLIX DRESSING AT THE TOES WAS SATURATED WITH SANGUINEOUS WOUND DRAINAGE. CLEANED WITH DAKNIS AND STERILE 4X4, WRAPPED WITH KERLIX AND SECURED WITH LIGHT CHARLIE BANDAGE.PATIENT HAD COMPLAINTS OF PAIN DURING DRESSING REMOVAL AND TOLERATED THE CLEANING AND PLACEMENT OF CLEAN DRESSING WELL. PATIENT IS NON COMPLIANT WITH NON-WEIGHT BEARING OF THE LEFT FOOT. PATIENT WAS SEEN WALKING MULTIPLE TIMES TO AMA/SMOKE. ADVISED PATIENT TO USE WHEELCHAIR AND STAY OFF LEFT FOOT WOUND. PATIENT VERBALIZED UNDERSTANDING.
[2019-10-08] MEDS ORDERED: DAKINS HALF STR 0.25% (NaHypochlorite) 473 ML TOPICAL SOL TOP ONE (15:00)
--- NOTE | 2019-10-08 15:25 | NUR ---
SS CONSULT DISCHARGE SS CONSULT FOR HOME HEALTH CARE, WOUND CARE AND PHYSICAL THERAPY.
--- NOTE | 2019-10-08 15:29 | NUR ---
COMMUNICATION DR. PERALES REQUEST MIDLINE FOR FOUR WEEKS OF ABO IV.
--- NOTE | 2019-10-08 15:56 | NUR ---
WOUND CARE ORDER KEEP DRESSING CDI FOR 24HOURS, BEGIN DRESSING CHANGES BID WITH WTD USING DAKINS 1/4 SOLUTION, WRAP WITH KERLIX. PER WOUND CARE ORDERS BY DR. LI.
--- NOTE | 2019-10-08 16:06 | NUR ---
Nutrition Assessment Notes Please refer to link for full assessment notes. Est Energy needs: [id number] kcals (25-30 kcal/kgIBW) Est Protein needs: 40-50 gms/day (0.8-1.0 gm/kgIBW) Will continue to monitor and reassess prn. Addendum: 10/08/19 at [address] Amended: Links added.
--- NOTE | 2019-10-08 16:38 | NUR ---
D/C Planning Per SS consult for home health for physical therapy and wound care. Per SW II Cathy patient does not want [facility] and is requesting a different agency. Faxed clinical information to [facility] Per Chloe with [facility] Ph:) patient has been accepted and service to start within 24-48hrs upon d/c day. Faxed clinical information to [facility]. Per Mikaela with [facility] authorization for [facility] is [id number].
[2019-10-08 16:49] VITALS: BP 100/58
--- NOTE | 2019-10-08 19:35 | NUR ---
OPENING NOTE REPORT RECEIVED FROM DAY SHIFT RN PATIENT IS A/OX4 RESTING IN BED. PATIENT STATES SHE IS HAVING 10/10 PAIN TO HER LEFT FOOT. PATIENT REQUESTS MORPHINE. EDUCATED PATIENT THAT MORPHINE IS NOT DUE AND WAS JUST GIVEN BY DAYSHIFT RN ABOUT AN HOUR AGO. PATIENT BECAME VISIBLY ANGRY AND STATES, "YOU'RE A LIAR! I HAVEN'T HAD IT SINCE 2 THIS AFTERNOON". EDUCATED PATIENT THAT IT WAS DOCUMENTED THAT SHE RECEIVED MORPHINE A LITTLE OVER AN HOUR AGO. PATIENT STATES, "WHATEVER, I'M NOT GOING TO ARGUE WITH YOU". OFFERED PATIENT TRAMADOL THAT IS ORDERED. PATIENT AGREED. POC DISCUSSED WITH PATIENT. IV TO LEFT UPPER CHEST INTACT AND PATENT. CALL LIGHT WITHIN REACH.
[2019-10-08] MEDS: traMADol HCL 50 MG TAB PO PRN (19:46)
--- NOTE | 2019-10-08 19:46 | NUR ---
PAIN PATIENT C/O 10/10 PAIN TO HER LEFT FOOT. PATIENT ASKING FOR MORPHINE. EDUCATED PATIENT THAT MORPHINE IS NOT YET DUE. OFFERED PATIENT TRAMADOL. PATIENT AGREED TRAMADOL ADMINISTERED ORDERED BY MD WILL REASSESS PAIN IN ONE HOUR
--- NOTE | 2019-10-08 20:46 | NUR ---
PAIN REASSESSMENT PATIENT SLEEPING AT THIS TIME. NO SIGNS OF PAIN NOTED
[2019-10-08 22:00] VITALS: BP 110/67
--- NOTE | 2019-10-08 22:00 | NUR ---
WOUNDCARE WOUND CARE DONE TO LEFT FOOT (2ND TOE AMPUTATION) PER ORDER PATIENT TOLERATED WELL.
--- NOTE | 2019-10-08 22:29 | NUR ---
PAIN PATIENT C/O 9/10 PAIN TO LEFT FOOT. PATIENT REQUESTED MORPHINE. MORPHINE ADMINISTERED ORDERED BY MD-SEE EMAR FOR DETAILS. WILL REASSESS IN 30 MINUTES
--- NOTE | 2019-10-08 22:59 | NUR ---
PAIN REASSESSMENT PATIENT STATES PAIN IS NOW DOWN TO 4/10 AND IS TOLERABLE AT THIS TIME WILL CONTINUE TO MONITOR PAIN
[2019-10-09] VITALS (7 sets, daily range): BP systolic 96–134; BP diastolic 50–74
[2019-10-09] MEDS: ACCU-CHEK COMFORT CURVE STRIP VI SCH ×5 (00:18→16:00)
[2019-10-09] MEDS: InsuLIN REG 1unit/0.01ml Soln (100units/ml) SC SCH ×5 (00:20→16:00)
--- NOTE | 2019-10-09 03:20 | NUR ---
IV removal TO LEFT UPPER CHEST DUE TO PATIENT C/O PAIN/DISCOMFORT IV DC'd with clean sterile technique, catheter fully intact. Pressure dressing applied to site. Patient tolerated well.
[2019-10-09] MEDS: diphenhdrAMINE HCL 25 MG CAP PO PRN (03:37)
--- NOTE | 2019-10-09 03:47 | NUR ---
IV insertion IV access obtained, via clean sterile technique by inserting 22 gauge catheter at RIGHT FOREARM after 2 attempt(s). IV secured properly. No trauma to site. Patient tolerated well.
[2019-10-09] MEDS: PROMETHAZINE HCL 25 MG/ML 1ML IV PRN ×3 (05:32→14:57)
[2019-10-09] MEDS: MORPHINE SULF INJ 2 MG/ML SYRINGE 1ML IV PRN ×3 (05:33→14:59)
--- NOTE | 2019-10-09 05:33 | NUR ---
PAIN PATIENT C/O 02/25 PAIN TO LEFT FOOT. PATIENT REQUESTED MORPHINE. MORPHINE GIVEN ORDERED-SEE EMAR FOR DETAILS. WILL REASSESS IN 30 MINUTES Addendum: 10/09/19 at 0638 by Esme Calvert RN bp checked at this time. BP was 124/68
--- NOTE | 2019-10-09 06:03 | NUR ---
PAIN REASSESSMENT PATIENT SLEEPING. NO SIGNS OF PAIN NOTED
[2019-10-09] MEDS: SUCRALFATE 1 GM/10 ML ORAL SUSP PO SCH ×3 (06:14→17:00)
--- NOTE | 2019-10-09 06:56 | NUR ---
CLOSING PATIENT IS RESTING COMFORTABLY IN BED. NO S/S OF DISTRESS. DRESSING TO LEFT FOOT C/D/I. CALL LIGHT WITHIN REACH. WILL ENDORSE CARE TO AM SHIFT RN
--- NOTE | 2019-10-09 08:00 | NUR ---
POC DECREASED BLOOD GLUCOSE PATIENT HAD BG OF 47 MG/DL, REPEATED WITH PATIENT DRINKING TWO BOXES OF ORANGE JUICE. LAB VALUE WAS 66MG/DL PATIENT HAD C/O DIZZINESS WHILE AMBULATING AND STANDING BY DOOR, WALKED PATIENT SECURLY BACK TO BED. EDUCATED PATIENT TO NOT WALK WHILE HAVING SYMPTOMS OF LIGHTHEADEDNESS AND OR DIZZINESS, R/T LOW BLOOD GLUCOSE LEVELS. WILL CONTINUE TO MONITOR.
[2019-10-09] MEDS: INSULIN LANTUS (GLARGINE) 1 /0.01ml (100units/ml) SC SCH (10:00)
[2019-10-09] MEDS: CEFEPIME 2 GM in SODIUM CHL 0.9% 50 ML IV SCH (10:24)
[2019-10-09] MEDS: FAMOTIDINE 20 MG TAB PO SCH (10:27)
[2019-10-09] MEDS: METOPROLOL SUCCINATE XL 50 MG TAB PO SCH (10:29)
[2019-10-09] MEDS: PANTOPRAZOLE 40 MG TAB PO SCH (10:29)
[2019-10-09] MEDS: amLODIPine BESYLATE 5 MG TAB PO SCH (10:31)
--- NOTE | 2019-10-09 19:02 | NUR ---
Discharge instructions given as ordered. Encourage to follow up with PMD as instructed. All questions and concerns addressed. Patient verbalized understanding. Medication reconciliation form completed and copy given to patient. IV removed with catheter intact, pressure dressing applied Telemetry unit returned to ICU. Patient taken to vehicle via wheelchair with all personal belongings, accompanied by staff and family member. No distress noted at time of departure. BEFORE DISCHARGE PATIENT C/O LEFT LEG SWELLING AND PAIN, PATIENT REFUSED TO STAY. PATIENT EDUCATED ON THE SIGNS AND SYMPTOMS OF INFECTION; FEVER, CHILLS, SWEATS, REDNESS, PAIN, SWELLING, LIGHT HEADINESS AND OR DIZZINESS. PATIENT EDUCATED ON BEING NON-WEIGHT BEARING ON THE LEFT FOOT AT ALL TIMES, PATIENT EDUCATED ON DRESSING CHANGE FOR LEFT FOOT 2ND TOE AMPUTATION. PATIENT EDUCATED ON MAKING FOLLOW UP APPOINTMENT WITH PCP AND WOUND MD. PATIENT EDUCATED TO PICKING UP MEDICATIONS PRESCRIBED BY DR. OGDEN. PATIENT VERBALIZED UNDERSTANDING.
== END 2019-10-09 19:05 | disposition home or self-care (01) | DRG 710 ==
LOC: EDUNIT# 15:18 → EDBD 15:18 → ER 15:18 → TELE 15:19 → TELE-WESTW 19:47
PROVIDERS: ADMIT Internal Medicine; ATTEND Internal Medicine Nephrology
PROC: 0Y6S0Z0 Detachment at Left 2nd Toe, Complete, Open Approach (ICD-10-PCS; principal; 2019-10-06 08:05)
DX: A41.9 Sepsis, unspecified organism (principal); N17.0 Acute kidney failure with tubular necrosis; E11.10 Type 2 diabetes mellitus with ketoacidosis without coma; E11.21 Type 2 diabetes mellitus with diabetic nephropathy; E11.52 Type 2 diabetes mellitus with diabetic peripheral angiopathy with gangrene; N18.3 Chronic kidney disease, stage 3 (moderate); E11.22 Type 2 diabetes mellitus with diabetic chronic kidney disease; L03.032 Cellulitis of left toe; L40.9 Psoriasis, unspecified; I12.9 Hypertensive chronic kidney disease with stage 1 through stage 4 chronic kidney disease, or unspecified chronic kidney disease; E78.5 Hyperlipidemia, unspecified; F32.9 Major depressive disorder, single episode, unspecified; J44.9 Chronic obstructive pulmonary disease, unspecified; F41.9 Anxiety disorder, unspecified; K21.9 Gastro-esophageal reflux disease without esophagitis; F17.210 Nicotine dependence, cigarettes, uncomplicated; E11.69 Type 2 diabetes mellitus with other specified complication; M86.8X7 Other osteomyelitis, ankle and foot; R19.7 Diarrhea, unspecified; Z91.19 Patient's noncompliance with other medical treatment and regimen; Z82.49 Family history of ischemic heart disease and other diseases of the circulatory system; Z82.5 Family history of asthma and other chronic lower respiratory diseases; Z88.1 Allergy status to other antibiotic agents; Z80.7 Family history of other malignant neoplasms of lymphoid, hematopoietic and related tissues; Z80.41 Family history of malignant neoplasm of ovary; Z83.3 Family history of diabetes mellitus; Z89.429 Acquired absence of other toe(s), unspecified side; Z90.710 Acquired absence of both cervix and uterus
CPT/HCPCS: 36415; 71045; 73700; 80048; 80053; 81001; 82270; 82962; 83036; 85007; 85014; 85018; 85025; 85027; 85045; 85610; 85652; 85730; 86850; 86900; 86901; 87040; 87070; 87075; 87076; 87077; 87081; 87086; 87186; 87205; 96361; 96374; 96375; G0378; J1815; J2001; J2250; J2405; J2704; J3490

== ENCOUNTER 2019-10-28 08:41 | Inpatient (IN) | payer MEDICAID ==
[~2019-10-28] VITALS: Ht 157.5 cm; Wt 76.2 kg
[~2019-10-28 08:41] MED LIST changes: -CARI-277 PO; +INSU100I49 SC; +INSU1INJ19 SC; -INSUINJ IJ; -INSUINJ18 SC; -INSUINJ37 SUBCUT; +MET50T PO
[2019-10-28] MEDS ORDERED: SODIUM CHLORIDE 0.9% 1,000 ML IV ONE ×2 (09:17)
[2019-10-28] MEDS ORDERED: InsuLIN R (HUMAN) 100 UNITS in SODIUM CHL 0.9% 99 ML IV SCH (09:26)
[2019-10-28] MEDS ORDERED: DEXTROSE (50%) 50ML SYRG IV PRN ×2 (09:30→18:45)
[2019-10-28] MEDS ORDERED: ONDANSETRON HCL 4 MG/2 ML VIAL IV ONE (09:30)
[2019-10-28] MEDS ORDERED: MORPHINE SULFATE 4 MG/ML SYR/VIAL IV ONE (09:30)
[2019-10-28 09:44] LABS: Basophils # (auto) 0 10 ^3/uL (0-0.2); Basophils % (auto) 0.2 % (0.0-2.0); Eosinophils # (auto) 0.1 10 ^3/uL (0-0.8); Eosinophils % (auto) 1.2 % (0.0-7.0); Hematocrit 33.4 % (36.0-46.0); Hemoglobin 10.7 g/dL (12.2-16.2); Lymphocytes # (auto) 1.4 10 ^3/uL (0.4-5.4); Lymphocytes % (auto) 21.3 % (10.0-50.0); Mean Corpuscular Hgb Conc. 31.9 g/dL (32.0-36.0); Monocytes # (auto) 0.6 10 ^3/uL (0-1.3); Monocytes % (auto) 9.6 % (0.0-12.0); Neutrophils # (auto) 4.6 10 ^3/uL (1.6-8.6); Neutrophils % (auto) 67.7 % (37.0-80.0); Platelet Count (auto) 209 10^3/uL (140-450); Red Blood Cells 3.67 10^6/uL (4.0-5.20); Red Cell Distribution Width 15.3 % (11.8-14.3); White Blood Cell 6.8 10^3/uL (4.4-10.8)
[2019-10-28 09:57] LABS: INR 1.01 (0.9-1.15); Partial Thromboplastin Time 28.2 sec (23.64-32.05)
[2019-10-28 10:00] LABS: Albumin 2.5 g/dL (3.4-5.0); Anion Gap 10 (5-15); Blood Urea Nitrogen 15 mg/dL (7-18); Calcium 8.4 mg/dL (8.5-10.1); Carbon Dioxide 22 mmol/L (21-32); Chloride 95 mmol/L (98-107); Potassium 4.1 mmol/L (3.5-5.1); Sodium 127 mmol/L (136-145)
[2019-10-28 10:03] LABS: Alanine Aminotransferase 8 U/L (13-56); Aspartate Aminotransferase 10 U/L (15-37); Bilirubin, Total 0.4 mg/dL (0.2-1.0); GFR African American 58 mL/min; GFR Non-African American 48 mL/min
[2019-10-28 10:08] LABS: Alkaline Phosphatase 191 U/L (45-117)
[2019-10-28 10:13] LABS: BUN/Creatinine Ratio 11.9
[2019-10-28] MEDS ORDERED: SODIUM CHLORIDE 0.9% 1,000 ML IV SCH ×3 (10:15→14:16)
[2019-10-28 10:16] LABS: Glucose 525 mg/dL (74-106)
[2019-10-28] MEDS ORDERED: IOHEXOL 300 MG/ML 100ML BOTTLE IJ ONE (10:16)
[2019-10-28] MEDS ORDERED: diphenhdrAMINE HCL 50 MG/1 ML VL ONE (10:21)
[2019-10-28] MEDS: ACCU-CHEK COMFORT CURVE STRIP VI SCH ×7 (10:30→20:34)
[2019-10-28] MEDS ORDERED: diphenhdrAMINE HCL 50 MG/1 ML VL IV ONE (10:30)
[2019-10-28 11:41] LABS: Magnesium 2.2 mg/dL (1.6-2.6); Phosphorus 3.5 mg/dL (2.5-4.90)
[2019-10-28] MEDS ORDERED: MORPHINE SULF INJ 2 MG/ML SYRINGE 1ML IV PRN (12:15)
[2019-10-28] MEDS ORDERED: NITROGLYCERIN 0.4 MG SL TAB SL PRN (12:15)
[2019-10-28] MEDS ORDERED: cefTRIAXone 1GM/50ML D5W 50 ML IV ONE (12:30)
[2019-10-28] MEDS: SODIUM CHLORIDE 0.9% 1,000 ML IV SCH ×2 (12:32→19:46)
[2019-10-28 14:00] VITALS: BP 129/74
[2019-10-28 14:02] VITALS: BP 129/74
[2019-10-28 14:10] LABS: Urine Bacteria NONE SEEN /hpf (None Seen); Urine Blood 2+ /uL (Negative); Urine Budding Yeast OCCASIONAL /hpf (None Seen); Urine Specific Gravity 1.037 (1.001-1.035); Urine WBC 1 /hpf (0 - 5)
[2019-10-28] MEDS ORDERED: DEXTROSE (50%) 50ML SYRG IV ONE (15:30)
[2019-10-28] MEDS: metroNIDAZOLE 500MG/100ML 100 ML IV SCH ×2 (15:45→22:10)
[2019-10-28] MEDS: MORPHINE SULF INJ 2 MG/ML SYRINGE 1ML IV PRN ×2 (15:48→21:03)
[2019-10-28 16:00] VITALS: BP 99/53
[2019-10-28 17:45] LABS: Calcium 8.7 mg/dL (8.5-10.1); Potassium 3.7 mmol/L (3.5-5.1)
[2019-10-28] MEDS: INSULIN LANTUS (GLARGINE) 1 /0.01ml (100units/ml) SC SCH (18:55)
[2019-10-28] MEDS ORDERED: InsuLIN REG 1unit/0.01ml Soln (100units/ml) SC ONE (19:00)
[2019-10-28 20:00] VITALS: BP 116/63
[2019-10-28] MEDS: InsuLIN REG 1unit/0.01ml Soln (100units/ml) SC SCH (20:38)
[2019-10-28] MEDS ORDERED: diphenhdrAMINE HCL 25 MG CAP PO ONE (20:45)
[2019-10-28] MEDS: METOPROLOL TARTRATE 25 MG TAB PO SCH (22:00)
[2019-10-28 22:13] VITALS: BP 102/60
[2019-10-29] MEDS: ACCU-CHEK COMFORT CURVE STRIP VI SCH ×6 (00:43→20:51)
[2019-10-29] MEDS: MORPHINE SULF INJ 2 MG/ML SYRINGE 1ML IV PRN ×5 (02:14→20:47)
[2019-10-29 03:18] LABS: Basophils # (auto) 0 10 ^3/uL (0-0.2); Basophils % (auto) 0.4 % (0.0-2.0); Eosinophils # (auto) 0.1 10 ^3/uL (0-0.8); Eosinophils % (auto) 1.3 % (0.0-7.0); Hematocrit 31.7 % (36.0-46.0); Hemoglobin 10.4 g/dL (12.2-16.2); Lymphocytes # (auto) 1.2 10 ^3/uL (0.4-5.4); Mean Corpuscular Hemoglobin 29.1 pg (28.0-32.0); Mean Corpuscular Hgb Conc. 32.8 g/dL (32.0-36.0); Mean Corpuscular Volume 88.6 fL (80.0-100.0); Monocytes # (auto) 0.8 10 ^3/uL (0-1.3); Monocytes % (auto) 11.8 % (0.0-12.0); Neutrophils # (auto) 4.7 10 ^3/uL (1.6-8.6); Neutrophils % (auto) 68.5 % (37.0-80.0); Platelet Count (auto) 200 10^3/uL (140-450); Red Blood Cells 3.58 10^6/uL (4.0-5.20); Red Cell Distribution Width 15.3 % (11.8-14.3); White Blood Cell 6.8 10^3/uL (4.4-10.8)
[2019-10-29] MEDS ORDERED: HYDROcodone-ACET 7.5/325MG TAB PO ONE (03:30)
[2019-10-29] MEDS ORDERED: hydrOXYzine HCL 10 MG TAB PO ONE (03:30)
[2019-10-29 03:34] LABS: BUN/Creatinine Ratio 14.4; Calcium 8.1 mg/dL (8.5-10.1); Potassium 3.8 mmol/L (3.5-5.1)
[2019-10-29] MEDS: SODIUM CHLORIDE 0.9% 1,000 ML IV SCH ×3 (04:15→20:48)
[2019-10-29] MEDS: InsuLIN REG 1unit/0.01ml Soln (100units/ml) SC SCH ×6 (04:23→20:00)
[2019-10-29] MEDS: metroNIDAZOLE 500MG/100ML 100 ML IV SCH (06:18)
[2019-10-29 07:40] VITALS: BP 119/87
[2019-10-29] MEDS ORDERED: cefTRIAXone 1GM/50ML D5W 50 ML IV SCH (09:00)
[2019-10-29] MEDS: METOPROLOL TARTRATE 25 MG TAB PO SCH ×2 (10:17→21:56)
[2019-10-29] MEDS: amLODIPine BESYLATE 5 MG TAB PO SCH (10:18)
[2019-10-29 11:45] VITALS: BP 105/62
[2019-10-29] MEDS ORDERED: VANCOMYCIN PER PHARMACY 0 MG IV SCH (11:45)
[2019-10-29] MEDS ORDERED: diphenhdrAMINE HCL 25 MG CAP PO ONE (11:45)
[2019-10-29] MEDS ORDERED: VANCOMYCIN 1GM/250ML 250 ML IV ONE (11:45)
[2019-10-29 17:00] VITALS: BP 140/79
[2019-10-29 18:00] VITALS: BP 130/72
[2019-10-29] MEDS: diphenhdrAMINE HCL 25 MG CAP PO PRN (20:54)
[2019-10-29] MEDS: GABAPENTIN 300 MG CAP PO SCH (21:56)
[2019-10-29] MEDS: ATORVASTATIN 20 MG TAB PO SCH (21:57)
[2019-10-29] MEDS: INSULIN LANTUS (GLARGINE) 1 /0.01ml (100units/ml) SC SCH (22:05)
[2019-10-30] MEDS: ACCU-CHEK COMFORT CURVE STRIP VI SCH ×6 (00:33→20:26)
[2019-10-30] MEDS: MORPHINE SULF INJ 2 MG/ML SYRINGE 1ML IV PRN ×2 (01:06→05:54)
[2019-10-30] MEDS: InsuLIN REG 1unit/0.01ml Soln (100units/ml) SC SCH ×6 (04:03→20:00)
[2019-10-30] MEDS: SODIUM CHLORIDE 0.9% 1,000 ML IV SCH ×3 (04:04→20:26)
[2019-10-30 05:00] VITALS: BP 113/67
[2019-10-30] MEDS: VANCOMYCIN 1GM/250ML 250 ML IV SCH (05:54)
[2019-10-30] MEDS: GABAPENTIN 300 MG CAP PO SCH ×3 (05:55→22:40)
[2019-10-30 09:00] VITALS: BP 109/55
[2019-10-30] MEDS: MORPHINE SULFATE 4 MG/ML SYR/VIAL IV PRN ×3 (10:27→21:20)
[2019-10-30] MEDS: amLODIPine BESYLATE 5 MG TAB PO SCH (10:27)
[2019-10-30] MEDS: METOPROLOL TARTRATE 25 MG TAB PO SCH ×2 (10:27→22:40)
[2019-10-30] MEDS: ALLOPURINOL 100 MG TAB PO SCH (10:27)
[2019-10-30 11:25] LABS: Basophils # (auto) 0 10 ^3/uL (0-0.2); Basophils % (auto) 0.2 % (0.0-2.0); Eosinophils # (auto) 0.1 10 ^3/uL (0-0.8); Eosinophils % (auto) 1.8 % (0.0-7.0); Hematocrit 34.5 % (36.0-46.0); Hemoglobin 11.1 g/dL (12.2-16.2); Lymphocytes # (auto) 2.3 10 ^3/uL (0.4-5.4); Lymphocytes % (auto) 30.9 % (10.0-50.0); Mean Corpuscular Hemoglobin 28.7 pg (28.0-32.0); Mean Corpuscular Hgb Conc. 32.1 g/dL (32.0-36.0); Mean Corpuscular Volume 89.5 fL (80.0-100.0); Monocytes # (auto) 0.9 10 ^3/uL (0-1.3); Monocytes % (auto) 11.9 % (0.0-12.0); Neutrophils # (auto) 4.1 10 ^3/uL (1.6-8.6); Neutrophils % (auto) 55.2 % (37.0-80.0); Nucleated Red Blood Cells % 0.1 %; Platelet Count (auto) 248 10^3/uL (140-450); Red Blood Cells 3.86 10^6/uL (4.0-5.20); Red Cell Distribution Width 15.4 % (11.8-14.3); White Blood Cell 7.5 10^3/uL (4.4-10.8)
[2019-10-30 11:48] LABS: Calcium 8.6 mg/dL (8.5-10.1); Potassium 3.9 mmol/L (3.5-5.1)
[2019-10-30 12:58] VITALS: BP 137/69
[2019-10-30] MEDS: CEFTRIAXONE SODIUM 2 GM in D5W 5% 50 ML IV SCH (13:08)
[2019-10-30] MEDS ORDERED: LIDOCAINE 1% (LOCAL ANESTH.) PF 5ml SDV ID ONE (16:00)
[2019-10-30 17:00] VITALS: BP 97/65
[2019-10-30 22:00] VITALS: BP 134/64
[2019-10-30] MEDS: INSULIN LANTUS (GLARGINE) 1 /0.01ml (100units/ml) SC SCH (22:00)
[2019-10-30] MEDS: SODIUM CHLOR 0.9% PF (SALINE LOCK) 10ML VIAL/SYR IV SCH (22:00)
[2019-10-30] MEDS: DAKINS QUARTER STR 0.125% (NaHypochlorite) 473 ML TOPICAL SOL TOP SCH (22:40)
[2019-10-31] MEDS: InsuLIN REG 1unit/0.01ml Soln (100units/ml) SC SCH ×5 (00:30→16:00)
[2019-10-31] MEDS: ATORVASTATIN 20 MG TAB PO SCH (00:34)
[2019-10-31] MEDS: VANCOMYCIN 1GM/250ML 250 ML IV SCH (00:34)
[2019-10-31] MEDS: diphenhdrAMINE HCL 25 MG CAP PO PRN (00:35)
[2019-10-31] MEDS: MORPHINE SULFATE 4 MG/ML SYR/VIAL IV PRN ×2 (02:05→12:45)
[2019-10-31] MEDS: SODIUM CHLORIDE 0.9% 1,000 ML IV SCH ×2 (04:19→12:15)
[2019-10-31] MEDS: ACCU-CHEK COMFORT CURVE STRIP VI SCH ×5 (04:22→16:00)
[2019-10-31 05:00] VITALS: BP 112/65
[2019-10-31] MEDS: GABAPENTIN 300 MG CAP PO SCH ×2 (06:00→14:13)
[2019-10-31 06:49] LABS: Basophils # (auto) 0 10 ^3/uL (0-0.2); Basophils % (auto) 0.5 % (0.0-2.0); Eosinophils # (auto) 0.1 10 ^3/uL (0-0.8); Eosinophils % (auto) 1.5 % (0.0-7.0); Hematocrit 27.8 % (36.0-46.0); Hemoglobin 9.2 g/dL (12.2-16.2); Lymphocytes # (auto) 2.3 10 ^3/uL (0.4-5.4); Lymphocytes % (auto) 32.1 % (10.0-50.0); Mean Corpuscular Hemoglobin 29.3 pg (28.0-32.0); Mean Corpuscular Hgb Conc. 33.1 g/dL (32.0-36.0); Mean Corpuscular Volume 88.7 fL (80.0-100.0); Monocytes # (auto) 0.8 10 ^3/uL (0-1.3); Monocytes % (auto) 11.3 % (0.0-12.0); Neutrophils # (auto) 3.9 10 ^3/uL (1.6-8.6); Neutrophils % (auto) 54.6 % (37.0-80.0); Platelet Count (auto) 211 10^3/uL (140-450); Red Blood Cells 3.14 10^6/uL (4.0-5.20); Red Cell Distribution Width 15.1 % (11.8-14.3); White Blood Cell 7.1 10^3/uL (4.4-10.8)
[2019-10-31] MEDS ORDERED: BUPIVACAINE HCL 50 ML ONE (06:55)
[2019-10-31] MEDS ORDERED: LIDOCAINE 1% HCL (LOCAL ANESTH.) INJ 20ML MDV ONE (06:55)
[2019-10-31] MEDS ORDERED: BACITRACIN INJ 50000 UNIT VIAL ONE (06:55)
[2019-10-31] MEDS ORDERED: cefTRIAXone 1GM/50ML D5W 50 ML IV ONE (06:57)
[2019-10-31 07:06] LABS: Potassium 3.9 mmol/L (3.5-5.1)
[2019-10-31 07:23] LABS: BUN/Creatinine Ratio 14.9; Calcium 8.4 mg/dL (8.5-10.1)
[2019-10-31] MEDS ORDERED: MIDAZOLAM HCL 1MG/1ML-2 ML VIAL ONE (07:33)
[2019-10-31] MEDS ORDERED: MEPERIDINE HCL (50 MG/ML) 1 ML VIAL ONE (07:33)
[2019-10-31] MEDS ORDERED: fentaNYL CITRATE 100 MCG/2 ML VL ONE (07:33)
[2019-10-31] MEDS ORDERED: PROPOFOL 10 MG/ML 20 ML IV ONE (07:56)
[2019-10-31] MEDS ORDERED: DexAMETHasone SOD PHOS 10MG/1ML VIAL INJ ONE (07:56)
[2019-10-31] MEDS ORDERED: ONDANSETRON HCL 4 MG/2 ML VIAL IV PRN (09:15)
[2019-10-31] MEDS ORDERED: LABETALOL HCL 5 MG/ML 4ML SYRINGE IV PRN (09:15)
[2019-10-31] MEDS ORDERED: MIDAZOLAM HCL 1MG/1ML-2 ML VIAL IV PRN (09:15)
[2019-10-31] MEDS ORDERED: ePHEDrine SULFATE 50 MG/ML AMP IV PRN (09:15)
[2019-10-31] MEDS ORDERED: ACCU-CHEK COMFORT CURVE STRIP VI ONE (09:15)
[2019-10-31] MEDS ORDERED: MORPHINE SULF INJ 2 MG/ML SYRINGE 1ML IV PRN (09:15)
[2019-10-31] MEDS ORDERED: HYDROmorphone HCL 2 MG/ML VL IV PRN (09:15)
[2019-10-31] MEDS: CEFTRIAXONE SODIUM 2 GM in D5W 5% 50 ML IV SCH (10:00)
[2019-10-31] MEDS: SODIUM CHLOR 0.9% PF (SALINE LOCK) 10ML VIAL/SYR IV SCH (10:00)
[2019-10-31] MEDS: DAKINS QUARTER STR 0.125% (NaHypochlorite) 473 ML TOPICAL SOL TOP SCH (10:00)
[2019-10-31] MEDS: METOPROLOL TARTRATE 25 MG TAB PO SCH (12:23)
[2019-10-31] MEDS: amLODIPine BESYLATE 5 MG TAB PO SCH (12:24)
[2019-10-31] MEDS: ALLOPURINOL 100 MG TAB PO SCH (12:25)
[2019-10-31 12:49] VITALS: BP 134/82
[2019-10-31 13:10] LABS: Hematocrit 34.9 % (36.0-46.0); Hemoglobin 11.1 g/dL (12.2-16.2)
[2019-10-31] MEDS ORDERED: VAN1I IV (15:52)
[2019-10-31] MEDS ORDERED: ROC2INJ10 IV (15:52)
[2019-10-31] MEDS ORDERED: HYDR-392 PO (15:53)
[2019-10-31 16:26] VITALS: BP 116/90
[2019-10-31] MEDS ORDERED: HYDROcodone-ACET 7.5/325MG TAB PO ONE (17:00)
[2019-10-31 17:26] VITALS: BP 116/90
== END 2019-10-31 19:30 | disposition home health service (06) | DRG 305 ==
LOC: ER 08:41 → OVERFLOW 08:42 → DOU IN ICU 13:13 → CENTRAL 10-29 15:38 → TELE-CENTR 10-29 15:55
PROVIDERS: ADMIT Nurse Practitioner Acute Care; ATTEND Internal Medicine
PROC: 02HV33Z Insertion of Infusion Device into Superior Vena Cava, Percutaneous Approach (ICD-10-PCS; 2019-10-30)
PROC: 0QBP0ZZ Excision of Left Metatarsal, Open Approach (ICD-10-PCS; 2019-10-31)
PROC: 0Y6N0Z5 Detachment at Left Foot, Complete 2nd Ray, Open Approach (ICD-10-PCS; principal; 2019-10-31 07:35)
DX: E11.69 Type 2 diabetes mellitus with other specified complication (principal); E11.40 Type 2 diabetes mellitus with diabetic neuropathy, unspecified; M86.172 Other acute osteomyelitis, left ankle and foot; E88.09 Other disorders of plasma-protein metabolism, not elsewhere classified; N18.3 Chronic kidney disease, stage 3 (moderate); E11.65 Type 2 diabetes mellitus with hyperglycemia; S92.912A Unspecified fracture of left toe(s), initial encounter for closed fracture; D63.8 Anemia in other chronic diseases classified elsewhere; E86.0 Dehydration; E11.10 Type 2 diabetes mellitus with ketoacidosis without coma; L03.032 Cellulitis of left toe; F17.210 Nicotine dependence, cigarettes, uncomplicated; I12.9 Hypertensive chronic kidney disease with stage 1 through stage 4 chronic kidney disease, or unspecified chronic kidney disease; F32.9 Major depressive disorder, single episode, unspecified; F41.9 Anxiety disorder, unspecified; M10.9 Gout, unspecified; J45.909 Unspecified asthma, uncomplicated; X58.XXXA Exposure to other specified factors, initial encounter; Z79.4 Long term (current) use of insulin; Z79.899 Other long term (current) drug therapy; Z80.7 Family history of other malignant neoplasms of lymphoid, hematopoietic and related tissues; Z82.49 Family history of ischemic heart disease and other diseases of the circulatory system; Z82.5 Family history of asthma and other chronic lower respiratory diseases; Z90.710 Acquired absence of both cervix and uterus; Z88.8 Allergy status to other drugs, medicaments and biological substances; Z91.041 Radiographic dye allergy status; Z91.013 Allergy to seafood; Z90.89 Acquired absence of other organs; Z89.422 Acquired absence of other left toe(s); Y93.9 Activity, unspecified; Y92.9 Unspecified place or not applicable; Y99.9 Unspecified external cause status
CPT/HCPCS: 36415; 36569; 36600; 71045; 73701; 73718; 80048; 80053; 81001; 82010; 82805; 82962; 83036; 83735; 83930; 84100; 84484; 85014; 85018; 85025; 85610; 85730; 87070; 87075; 87077; 87081; 87086; 87186; 87205; 93971; 99291; G0378; J0696; J1100; J1815; J2001; J2250; J2405; J2704; J3490; J7060

== ENCOUNTER 2019-11-05 21:33 | Emergency (ER) | payer MEDICAID ==
[~2019-11-05] VITALS: Ht 167.6 cm; Wt 74.8 kg
[~2019-11-05 21:33] MED LIST changes: +HYDR-392 PO; +ROC2INJ10 IV; -TIZA4CAP PO; +VAN1I IV
[2019-11-05] MEDS ORDERED: KETOROLAC TROMETH 30 MG/ML 1ML VIAL IV ONE (22:15)
[2019-11-05 22:58] LABS: INR 1.04 (0.9-1.15); Partial Thromboplastin Time 26.9 sec (23.64-32.05)
[2019-11-05 23:03] LABS: Alanine Aminotransferase 8 U/L (13-56); Albumin 2.3 g/dL (3.4-5.0); Anion Gap 9 (5-15); Aspartate Aminotransferase 12 U/L (15-37); Blood Urea Nitrogen 7 mg/dL (7-18); Calcium 8.4 mg/dL (8.5-10.1); Carbon Dioxide 21 mmol/L (21-32); Chloride 107 mmol/L (98-107); GFR African American 63 mL/min; GFR Non-African American 52 mL/min; Glucose 366 mg/dL (74-106); Magnesium 1.9 mg/dL (1.6-2.6); Potassium 3.8 mmol/L (3.5-5.1); Sodium 137 mmol/L (136-145)
[2019-11-05 23:08] LABS: Alkaline Phosphatase 105 U/L (45-117); Bilirubin, Total 0.2 mg/dL (0.2-1.0); Total Protein 8.2 g/dL (6.4-8.2)
[2019-11-05 23:49] LABS: Basophils # (auto) 0 10 ^3/uL (0-0.2); Basophils % (auto) 0.4 % (0.0-2.0); Eosinophils # (auto) 0.2 10 ^3/uL (0-0.8); Eosinophils % (auto) 3.5 % (0.0-7.0); Hematocrit 30.9 % (36.0-46.0); Hemoglobin 10.1 g/dL (12.2-16.2); Lymphocytes # (auto) 2.1 10 ^3/uL (0.4-5.4); Lymphocytes % (auto) 31.9 % (10.0-50.0); Mean Corpuscular Hemoglobin 28.6 pg (28.0-32.0); Mean Corpuscular Hgb Conc. 32.6 g/dL (32.0-36.0); Mean Corpuscular Volume 87.6 fL (80.0-100.0); Monocytes # (auto) 0.5 10 ^3/uL (0-1.3); Monocytes % (auto) 7.2 % (0.0-12.0); Neutrophils # (auto) 3.7 10 ^3/uL (1.6-8.6); Platelet Count (auto) 377 10^3/uL (140-450); Red Blood Cells 3.52 10^6/uL (4.0-5.20); Red Cell Distribution Width 15.3 % (11.8-14.3); White Blood Cell 6.4 10^3/uL (4.4-10.8)
[2019-11-06] MEDS ORDERED: cefTRIAXone 1GM/50ML D5W 50 ML IV ONE (00:30)
[2019-11-06] MEDS ORDERED: VANCOMYCIN 1GM/250ML 250 ML IV ONE (00:30)
[2019-11-06] MEDS ORDERED: SODIUM CHLORIDE 0.9% 1,000 ML IV ONE (01:15)
[2019-11-06 01:26] VITALS: BP 142/78
== END 2019-11-06 01:20 | disposition left against medical advice (07) ==
LOC: EDBD 21:33 → ER 21:39
DX: M86.8X7 Other osteomyelitis, ankle and foot (principal); E11.65 Type 2 diabetes mellitus with hyperglycemia; R07.89 Other chest pain; J45.909 Unspecified asthma, uncomplicated; E78.5 Hyperlipidemia, unspecified; I10 Essential (primary) hypertension; F17.210 Nicotine dependence, cigarettes, uncomplicated; Z90.710 Acquired absence of both cervix and uterus; Z88.1 Allergy status to other antibiotic agents
CPT/HCPCS: 36415; 71045; 73620; 80053; 83605; 83735; 83880; 84484; 85025; 85610; 85730; 86141; 87040; 93005; 93971; 99285; J0696; J3370

== ENCOUNTER 2019-12-30 23:33 | Emergency (ER) | payer MEDICAID ==
[~2019-12-30] VITALS: Ht 157.5 cm; Wt 81.9 kg
[2019-12-31] MEDS ORDERED: SILVER SULFADIAZINE 1 % TOPICAL CREAM 50GM TOP ONE (01:45)
[2019-12-31] MEDS ORDERED: cefTRIAXone SOD 1,000 MG VL IM ONE (01:45)
[2019-12-31] MEDS ORDERED: TETANUS-DIPTH-ACEL PERTUSSIS 0.5ML SYR Tdap IM ONE (01:45)
[2019-12-31 01:47] VITALS: BP 175/89
== END 2019-12-31 02:40 | disposition home or self-care (01) ==
LOC: ER 23:33
DX: T23.232A Burn of second degree of multiple left fingers (nail), not including thumb, initial encounter (principal); F41.9 Anxiety disorder, unspecified; J45.909 Unspecified asthma, uncomplicated; F32.9 Major depressive disorder, single episode, unspecified; E11.9 Type 2 diabetes mellitus without complications; E78.5 Hyperlipidemia, unspecified; I10 Essential (primary) hypertension; M10.9 Gout, unspecified; F17.210 Nicotine dependence, cigarettes, uncomplicated; Z88.1 Allergy status to other antibiotic agents; Z88.8 Allergy status to other drugs, medicaments and biological substances; Z91.013 Allergy to seafood; X10.2XXA Contact with fats and cooking oils, initial encounter; Y93.G2 Activity, grilling and smoking food; Y92.89 Other specified places as the place of occurrence of the external cause; Y99.8 Other external cause status
CPT/HCPCS: 16020; 90471; 90715; 96372; 99284; J0696

== ENCOUNTER 2020-03-04 03:05 | Emergency (ER) | payer MEDICAID ==
[~2020-03-04] VITALS: Ht 61 cm; Wt 68.0 kg
[2020-03-04] MEDS ORDERED: SODIUM CHLORIDE 0.9% 1,000 ML IV ONE ×3 (03:30→06:53)
[2020-03-04] MEDS ORDERED: InsuLIN REG 1unit/0.01ml Soln (100units/ml) IV ONE (03:30)
[2020-03-04 05:12] LABS: Basophils # (auto) 0 10 ^3/uL (0-0.2); Basophils % (auto) 0.5 % (0.0-2.0); Eosinophils # (auto) 0.3 10 ^3/uL (0-0.8); Eosinophils % (auto) 3.4 % (0.0-7.0); Hematocrit 36.4 % (36.0-46.0); Hemoglobin 11.9 g/dL (12.2-16.2); Lymphocytes # (auto) 2.2 10 ^3/uL (0.4-5.4); Mean Corpuscular Hemoglobin 29.1 pg (28.0-32.0); Mean Corpuscular Hgb Conc. 32.7 g/dL (32.0-36.0); Mean Corpuscular Volume 88.9 fL (80.0-100.0); Monocytes # (auto) 0.6 10 ^3/uL (0-1.3); Monocytes % (auto) 7.8 % (0.0-12.0); Neutrophils # (auto) 4.4 10 ^3/uL (1.6-8.6); Neutrophils % (auto) 59.3 % (37.0-80.0); Platelet Count (auto) 250 10^3/uL (140-450); Red Cell Distribution Width 14.5 % (11.8-14.3); White Blood Cell 7.4 10^3/uL (4.4-10.8)
[2020-03-04 05:30] LABS: Alanine Aminotransferase 16 U/L (13-56); Albumin 3.1 g/dL (3.4-5.0); Alkaline Phosphatase 284 U/L (45-117); Aspartate Aminotransferase 9 U/L (15-37); BUN/Creatinine Ratio 11.8; Bilirubin, Total 0.3 mg/dL (0.2-1.0); Blood Urea Nitrogen 16 mg/dL (7-18); Calcium 8.8 mg/dL (8.5-10.1); Carbon Dioxide 21 mmol/L (21-32); GFR African American 53 mL/min; GFR Non-African American 44 mL/min; Magnesium 2.3 mg/dL (1.6-2.6); Total Protein 7.4 g/dL (6.4-8.2)
[2020-03-04] MEDS ORDERED: MORPHINE SULFATE 4 MG/ML SYR/VIAL IV ONE (05:30)
[2020-03-04] MEDS ORDERED: ONDANSETRON HCL 4 MG/2 ML VIAL IV ONE (05:30)
[2020-03-04] MEDS ORDERED: diphenhdrAMINE HCL 50 MG/1 ML VL ONE (05:34)
[2020-03-04 05:36] LABS: Glucose 626 mg/dL (74-106)
[2020-03-04] MEDS ORDERED: diphenhdrAMINE HCL 50 MG/1 ML VL IV ONE (05:45)
[2020-03-04 06:28] LABS: Anion Gap 8 (5-15); Chloride 102 mmol/L (98-107); Potassium 3.8 mmol/L (3.5-5.1); Sodium 131 mmol/L (136-145)
[2020-03-04] MEDS ORDERED: InsuLIN R (HUMAN) 100 UNITS in SODIUM CHL 0.9% 99 ML IV SCH (06:53)
[2020-03-04] MEDS ORDERED: DEXTROSE (50%) 50ML SYRG IV PRN (07:00)
[2020-03-04] MEDS ORDERED: PIPERACILLIN-TAZOB 3.375GM 100 ML IV ONE (07:00)
[2020-03-04] MEDS: ACCU-CHEK COMFORT CURVE STRIP VI SCH ×2 (07:30→09:00)
[2020-03-04 08:00] VITALS: BP 117/58
== END 2020-03-04 09:48 | disposition home or self-care (01) ==
LOC: ER 03:07
DX: E11.65 Type 2 diabetes mellitus with hyperglycemia (principal); L03.114 Cellulitis of left upper limb; L03.113 Cellulitis of right upper limb; F17.210 Nicotine dependence, cigarettes, uncomplicated; F41.9 Anxiety disorder, unspecified; J45.909 Unspecified asthma, uncomplicated; F32.9 Major depressive disorder, single episode, unspecified; I10 Essential (primary) hypertension; E78.5 Hyperlipidemia, unspecified; Z88.6 Allergy status to analgesic agent; Z88.1 Allergy status to other antibiotic agents; Z88.8 Allergy status to other drugs, medicaments and biological substances; Z91.013 Allergy to seafood; Z79.899 Other long term (current) drug therapy; Z79.4 Long term (current) use of insulin; Z98.890 Other specified postprocedural states; Z90.710 Acquired absence of both cervix and uterus; Z90.89 Acquired absence of other organs
CPT/HCPCS: 36415; 71045; 80053; 82010; 82962; 83605; 83735; 83880; 84484; 85025; 87040; 93005; 96361; 96365; 96375; 99285; J1200; J1815; J2270; J2405; J2543; J7030; 96367; 96376

== ENCOUNTER 2020-03-11 20:06 | Inpatient (IN) | payer MEDICAID ==
[~2020-03-11] VITALS: Ht 157.5 cm; Wt 64.4 kg
[2020-03-11 22:12] LABS: Basophils # (auto) 0 10 ^3/uL (0-0.2); Basophils % (auto) 0.5 % (0.0-2.0); Eosinophils # (auto) 0.2 10 ^3/uL (0-0.8); Eosinophils % (auto) 3.4 % (0.0-7.0); Hematocrit 39.9 % (36.0-46.0); Hemoglobin 13.2 g/dL (12.2-16.2); Lymphocytes # (auto) 1.9 10 ^3/uL (0.4-5.4); Lymphocytes % (auto) 28.4 % (10.0-50.0); Mean Corpuscular Hemoglobin 30.4 pg (28.0-32.0); Mean Corpuscular Hgb Conc. 33.1 g/dL (32.0-36.0); Monocytes # (auto) 0.5 10 ^3/uL (0-1.3); Monocytes % (auto) 7.4 % (0.0-12.0); Neutrophils % (auto) 60.3 % (37.0-80.0); Nucleated Red Blood Cells % 0.2 %; Platelet Count (auto) 280 10^3/uL (140-450); Red Blood Cells 4.34 10^6/uL (4.0-5.20); Red Cell Distribution Width 14.4 % (11.8-14.3); White Blood Cell 6.6 10^3/uL (4.4-10.8)
[2020-03-11 22:31] LABS: Albumin 3.4 g/dL (3.4-5.0); Anion Gap 5 (5-15); Blood Urea Nitrogen 24 mg/dL (7-18); Calcium 9.1 mg/dL (8.5-10.1); Carbon Dioxide 25 mmol/L (21-32); Chloride 97 mmol/L (98-107); Potassium 4.2 mmol/L (3.5-5.1); Sodium 127 mmol/L (136-145)
[2020-03-11 22:39] LABS: Alanine Aminotransferase 15 U/L (13-56); Alkaline Phosphatase 348 U/L (45-117); Aspartate Aminotransferase 11 U/L (15-37); BUN/Creatinine Ratio 15.5; Bilirubin, Total 0.3 mg/dL (0.2-1.0); GFR African American 45 mL/min; GFR Non-African American 37 mL/min; Total Protein 8.3 g/dL (6.4-8.2)
[2020-03-11 22:43] LABS: Glucose 730 mg/dL (74-106)
[2020-03-11] MEDS ORDERED: InsuLIN REG 1unit/0.01ml Soln (100units/ml) IV ONE (23:00)
[2020-03-11] MEDS ORDERED: SODIUM CHLORIDE 0.9% 1,000 ML IV ONE (23:00)
[2020-03-11] MEDS ORDERED: ONDANSETRON HCL 4 MG/2 ML VIAL IV ONE (23:00)
[2020-03-11] MEDS ORDERED: MORPHINE SULFATE 10 MG/ML INJ 1ML SDV IV ONE (23:00)
[2020-03-11] MEDS ORDERED: MORPHINE SULFATE 4 MG/ML SYR/VIAL ONE (23:18)
[2020-03-11] MEDS ORDERED: MORPHINE SULF INJ 2 MG/ML SYRINGE 1ML ONE (23:19)
[2020-03-11] MEDS ORDERED: MORPHINE SULFATE 4 MG/ML SYR/VIAL IV ONE (23:30)
[2020-03-11] MEDS ORDERED: MORPHINE SULF INJ 2 MG/ML SYRINGE 1ML IV ONE (23:30)
[2020-03-11] MEDS ORDERED: diphenhdrAMINE HCL 50 MG/1 ML VL ONE (23:41)
[2020-03-11] MEDS ORDERED: diphenhdrAMINE HCL 50 MG/1 ML VL IV ONE (23:45)
[2020-03-12 00:03] LABS: INR 0.95 (0.9-1.15); Partial Thromboplastin Time 26.3 sec (23.0-31.2)
[2020-03-12 01:12] LABS: Urine Bacteria FEW /hpf (None Seen); Urine Blood Negative /uL (Negative); Urine Specific Gravity 1.022 (1.001-1.035); Urine WBC 9 /hpf (0 - 5)
[2020-03-12] MEDS ORDERED: ACETAMINOPHEN 325 MG TAB PO PRN (01:15)
[2020-03-12] MEDS ORDERED: NITROGLYCERIN 0.4 MG SL TAB SL PRN (01:15)
[2020-03-12] MEDS ORDERED: MORPHINE SULF INJ 2 MG/ML SYRINGE 1ML IV PRN ×2 (01:15→11:00)
[2020-03-12] MEDS ORDERED: DEXTROSE (50%) 50ML SYRG IV PRN (01:15)
[2020-03-12] MEDS ORDERED: ONDANSETRON HCL 4 MG/2 ML VIAL IV PRN (01:15)
[2020-03-12] MEDS ORDERED: SODIUM CHLORIDE 0.9% 1,000 ML IV ONE (01:15)
[2020-03-12] MEDS ORDERED: HYDROcodone-ACET 7.5/325MG TAB PO PRN (01:30)
[2020-03-12] MEDS ORDERED: INSULIN LANTUS (GLARGINE) 1 /0.01ml (100units/ml) SC ONE ×2 (01:30→08:45)
[2020-03-12 03:01] VITALS: BP 149/91
[2020-03-12] MEDS: SODIUM CHLORIDE 0.9% 1,000 ML IV SCH ×2 (03:53→13:40)
[2020-03-12 05:00] VITALS: BP 127/70
[2020-03-12] MEDS: GABAPENTIN 300 MG CAP PO SCH ×2 (05:40→14:27)
[2020-03-12] MEDS: InsuLIN REG 1unit/0.01ml Soln (100units/ml) SC SCH ×3 (05:41→18:12)
[2020-03-12] MEDS: ACCU-CHEK COMFORT CURVE STRIP VI SCH ×3 (05:41→18:11)
[2020-03-12 05:58] LABS: Basophils # (auto) 0 10 ^3/uL (0-0.2); Basophils % (auto) 0.5 % (0.0-2.0); Eosinophils # (auto) 0.3 10 ^3/uL (0-0.8); Eosinophils % (auto) 3.6 % (0.0-7.0); Hematocrit 34.2 % (36.0-46.0); Hemoglobin 11.6 g/dL (12.2-16.2); Lymphocytes % (auto) 34.4 % (10.0-50.0); Mean Corpuscular Hemoglobin 30.1 pg (28.0-32.0); Mean Corpuscular Hgb Conc. 33.9 g/dL (32.0-36.0); Mean Corpuscular Volume 88.7 fL (80.0-100.0); Monocytes # (auto) 0.7 10 ^3/uL (0-1.3); Monocytes % (auto) 8.4 % (0.0-12.0); Neutrophils # (auto) 4.6 10 ^3/uL (1.6-8.6); Neutrophils % (auto) 53.1 % (37.0-80.0); Nucleated Red Blood Cells % 0.1 %; Platelet Count (auto) 247 10^3/uL (140-450); Red Blood Cells 3.86 10^6/uL (4.0-5.20); Red Cell Distribution Width 14.3 % (11.8-14.3); White Blood Cell 8.6 10^3/uL (4.4-10.8)
[2020-03-12 06:17] LABS: Albumin 2.7 g/dL (3.4-5.0); Anion Gap 4 (5-15); BUN/Creatinine Ratio 22.2; Blood Urea Nitrogen 22 mg/dL (7-18); Calcium 8.3 mg/dL (8.5-10.1); Carbon Dioxide 22 mmol/L (21-32); Chloride 111 mmol/L (98-107); GFR African American 76 mL/min; GFR Non-African American 63 mL/min; Glucose 254 mg/dL (74-106); Potassium 3.9 mmol/L (3.5-5.1); Sodium 137 mmol/L (136-145)
[2020-03-12 06:26] LABS: Alanine Aminotransferase 11 U/L (13-56); Alkaline Phosphatase 213 U/L (45-117); Aspartate Aminotransferase 8 U/L (15-37); Bilirubin, Total 0.3 mg/dL (0.2-1.0); Phosphorus 3.5 mg/dL (2.5-4.90); Total Protein 6.6 g/dL (6.4-8.2)
[2020-03-12 09:00] VITALS: BP 132/69
[2020-03-12] MEDS ORDERED: amLODIPine BESYLATE 5 MG TAB PO SCH (10:00)
[2020-03-12] MEDS ORDERED: ALLOPURINOL 100 MG TAB PO SCH (10:00)
[2020-03-12] MEDS ORDERED: METOPROLOL TARTRATE 50 MG TAB PO SCH (10:00)
[2020-03-12] MEDS ORDERED: FUROSEMIDE 20 MG TAB PO SCH (10:00)
[2020-03-12] MEDS ORDERED: ENOXAPARIN SOD 40 MG/0.4 ML SYRINGE SC SCH (10:00)
[2020-03-12] MEDS ORDERED: LOSARTAN POTASSIUM 50 MG TAB PO SCH (10:00)
[2020-03-12] MEDS ORDERED: diphenhdrAMINE HCL 25 MG CAP PO PRN (11:00)
[2020-03-12 13:00] VITALS: BP 104/58
[2020-03-12 16:41] VITALS: BP 134/76
[2020-03-12] MEDS ORDERED: CEL100T PO (17:30)
[2020-03-12] MEDS ORDERED: [UNRECOGNIZED DRUG - CODE] EX (17:30)
[2020-03-12] MEDS ORDERED: CIPR-173 PO (17:48)
[2020-03-12] MEDS ORDERED: ATORVASTATIN 20 MG TAB PO SCH (22:00)
[2020-03-12] MEDS ORDERED: INSULIN LANTUS (GLARGINE) 1 /0.01ml (100units/ml) SC SCH (22:00)
== END 2020-03-12 19:20 | disposition home or self-care (01) | DRG 351 ==
LOC: EDBD 20:06 → ER 20:10 → OVERFLOW 20:11 → WEST WING 03-12 02:11
PROVIDERS: ADMIT Internal Medicine; ATTEND Internal Medicine
DX: S29.011A Strain of muscle and tendon of front wall of thorax, initial encounter (principal); E11.65 Type 2 diabetes mellitus with hyperglycemia; I10 Essential (primary) hypertension; F17.210 Nicotine dependence, cigarettes, uncomplicated; E11.40 Type 2 diabetes mellitus with diabetic neuropathy, unspecified; E78.00 Pure hypercholesterolemia, unspecified; I11.9 Hypertensive heart disease without heart failure; J45.909 Unspecified asthma, uncomplicated; N39.0 Urinary tract infection, site not specified; Z80.9 Family history of malignant neoplasm, unspecified; Z82.49 Family history of ischemic heart disease and other diseases of the circulatory system; Z83.3 Family history of diabetes mellitus; Z90.710 Acquired absence of both cervix and uterus; V89.2XXA Person injured in unspecified motor-vehicle accident, traffic, initial encounter; X58.XXXA Exposure to other specified factors, initial encounter; Y92.410 Unspecified street and highway as the place of occurrence of the external cause; Y93.89 Activity, other specified; Y99.8 Other external cause status
CPT/HCPCS: 36415; 36600; 71045; 71250; 74176; 80053; 81001; 82010; 82805; 82962; 83036; 83735; 83880; 84100; 84484; 85025; 85610; 85730; 93005; 96361; 96372; 96374; 96375; G0378; J1815; J2405

== ENCOUNTER 2020-03-17 21:20 | Inpatient (IN) | payer MEDICAID ==
[~2020-03-17] VITALS: Ht 157.5 cm; Wt 68.6 kg
[~2020-03-17 21:20] MED LIST changes: +CEL100T PO; +CIPR-173 PO; -ROC2INJ10 IV; -VAN1I IV; +[UNRECOGNIZED DRUG - CODE] EX
[2020-03-17] MEDS ORDERED: SODIUM CHLORIDE 0.9% 1,000 ML IV ONE (23:15)
[2020-03-17] MEDS ORDERED: ONDANSETRON HCL 4 MG/2 ML VIAL IV ONE (23:15)
[2020-03-17] MEDS ORDERED: MORPHINE SULFATE 4 MG/ML SYR/VIAL IV ONE (23:15)
[2020-03-17] MEDS ORDERED: InsuLIN REG 1unit/0.01ml Soln (100units/ml) IV ONE (23:15)
[2020-03-17 23:44] LABS: Basophils # (auto) 0 10 ^3/uL (0-0.2); Basophils % (auto) 0.4 % (0.0-2.0); Eosinophils # (auto) 0.3 10 ^3/uL (0-0.8); Eosinophils % (auto) 3.7 % (0.0-7.0); Hematocrit 34.7 % (36.0-46.0); Hemoglobin 11.2 g/dL (12.2-16.2); Lymphocytes # (auto) 2.2 10 ^3/uL (0.4-5.4); Lymphocytes % (auto) 25.7 % (10.0-50.0); Mean Corpuscular Hemoglobin 29.7 pg (28.0-32.0); Mean Corpuscular Hgb Conc. 32.4 g/dL (32.0-36.0); Mean Corpuscular Volume 91.6 fL (80.0-100.0); Monocytes # (auto) 0.9 10 ^3/uL (0-1.3); Monocytes % (auto) 10.1 % (0.0-12.0); Neutrophils # (auto) 5.1 10 ^3/uL (1.6-8.6); Neutrophils % (auto) 60.1 % (37.0-80.0); Nucleated Red Blood Cells % 0.1 %; Platelet Count (auto) 283 10^3/uL (140-450); Red Blood Cells 3.79 10^6/uL (4.0-5.20); Red Cell Distribution Width 14.5 % (11.8-14.3); White Blood Cell 8.5 10^3/uL (4.4-10.8)
[2020-03-17] MEDS ORDERED: cefTRIAXone 1GM/50ML D5W 50 ML IV ONE (23:45)
[2020-03-17] MEDS ORDERED: CLINDAMYCIN 900MG IV 50 ML IV ONE (23:45)
[2020-03-17 23:59] LABS: Potassium 4.2 mmol/L (3.5-5.1)
[2020-03-18 00:51] LABS: Albumin 2.6 g/dL (3.4-5.0); Bilirubin, Total 0.3 mg/dL (0.2-1.0); Calcium 8.8 mg/dL (8.5-10.1); Total Protein 7.1 g/dL (6.4-8.2)
[2020-03-18 00:52] LABS: Lactic Acid w/Reflex 2.4 mmol/L (0.4-2.0)
[2020-03-18 01:25] LABS: Urine Bacteria NONE SEEN /hpf (None Seen); Urine Blood Negative /uL (Negative); Urine Specific Gravity 1.018 (1.001-1.035); Urine WBC <1 /hpf (0 - 5)
[2020-03-18] MEDS ORDERED: ONDANSETRON HCL 4 MG/2 ML VIAL IV ONE (04:30)
[2020-03-18] MEDS ORDERED: MORPHINE SULFATE 4 MG/ML SYR/VIAL IV ONE (04:30)
[2020-03-18] MEDS ORDERED: MORPHINE SULF INJ 2 MG/ML SYRINGE 1ML IV PRN (05:15)
[2020-03-18] MEDS ORDERED: NITROGLYCERIN 0.4 MG SL TAB SL PRN (05:15)
[2020-03-18] MEDS ORDERED: DEXTROSE (50%) 50ML SYRG IV PRN (05:15)
[2020-03-18] MEDS: InsuLIN REG 1unit/0.01ml Soln (100units/ml) SC SCH ×4 (06:44→22:03)
[2020-03-18] MEDS: ACCU-CHEK COMFORT CURVE STRIP VI SCH ×4 (06:44→21:49)
[2020-03-18] MEDS: MORPHINE SULF INJ 2 MG/ML SYRINGE 1ML IV PRN ×3 (09:48→20:59)
[2020-03-18] MEDS: CLINDAMYCIN 900MG IV 50 ML IV SCH ×3 (09:48→21:48)
[2020-03-18] MEDS: ONDANSETRON HCL 4 MG/2 ML VIAL IV PRN ×3 (09:48→20:58)
[2020-03-18] MEDS: ENOXAPARIN SOD 40 MG/0.4 ML SYRINGE SC SCH (09:49)
[2020-03-18] MEDS ORDERED: levoFLOXacin 500MG 100 ML IV SCH (10:00)
[2020-03-18 13:00] VITALS: BP 110/75
[2020-03-18 17:00] VITALS: BP 125/74
[2020-03-18 20:00] VITALS: BP 126/57
[2020-03-18 22:00] VITALS: BP 126/57
[2020-03-19] MEDS: VANCOMYCIN 1GM/250ML 250 ML IV SCH ×2 (00:06→12:15)
[2020-03-19] MEDS: MORPHINE SULF INJ 2 MG/ML SYRINGE 1ML IV PRN ×5 (01:19→21:34)
[2020-03-19 05:00] VITALS: BP 124/55
[2020-03-19 05:06] LABS: RPR Non Reactive (Non Reactive)
[2020-03-19] MEDS: CLINDAMYCIN 900MG IV 50 ML IV SCH (05:28)
[2020-03-19 06:26] LABS: Basophils # (auto) 0 10 ^3/uL (0-0.2); Basophils % (auto) 0.5 % (0.0-2.0); Eosinophils # (auto) 0.2 10 ^3/uL (0-0.8); Eosinophils % (auto) 2.7 % (0.0-7.0); Hematocrit 31.8 % (36.0-46.0); Hemoglobin 10.5 g/dL (12.2-16.2); Lymphocytes # (auto) 1.8 10 ^3/uL (0.4-5.4); Lymphocytes % (auto) 23.7 % (10.0-50.0); Mean Corpuscular Hemoglobin 29.8 pg (28.0-32.0); Mean Corpuscular Hgb Conc. 32.9 g/dL (32.0-36.0); Mean Corpuscular Volume 90.5 fL (80.0-100.0); Monocytes # (auto) 0.8 10 ^3/uL (0-1.3); Monocytes % (auto) 10.5 % (0.0-12.0); Neutrophils # (auto) 4.8 10 ^3/uL (1.6-8.6); Neutrophils % (auto) 62.6 % (37.0-80.0); Nucleated Red Blood Cells % 0.1 %; Platelet Count (auto) 249 10^3/uL (140-450); Red Blood Cells 3.51 10^6/uL (4.0-5.20); Red Cell Distribution Width 14.6 % (11.8-14.3); White Blood Cell 7.6 10^3/uL (4.4-10.8)
[2020-03-19] MEDS: ACCU-CHEK COMFORT CURVE STRIP VI SCH ×4 (06:27→21:45)
[2020-03-19] MEDS: InsuLIN REG 1unit/0.01ml Soln (100units/ml) SC SCH ×4 (06:28→21:46)
[2020-03-19 06:35] LABS: Potassium 4.6 mmol/L (3.5-5.1)
[2020-03-19 06:49] LABS: Albumin 2.4 g/dL (3.4-5.0); BUN/Creatinine Ratio 17.7; Bilirubin, Total 0.4 mg/dL (0.2-1.0); Calcium 8.3 mg/dL (8.5-10.1); Total Protein 6.6 g/dL (6.4-8.2)
[2020-03-19] MEDS ORDERED: VANCOMYCIN PER PHARMACY 0 MG IV SCH ×2 (08:30→20:45)
[2020-03-19 09:09] VITALS: BP 114/65
[2020-03-19] MEDS: COLCHICINE 0.6 MG CAP PO SCH (10:40)
[2020-03-19] MEDS: ENOXAPARIN SOD 40 MG/0.4 ML SYRINGE SC SCH (10:50)
[2020-03-19 12:36] VITALS: BP 92/62
[2020-03-19 16:46] VITALS: BP 112/66
[2020-03-19] MEDS ORDERED: diphenhdrAMINE HCL 25 MG CAP PO ONE (20:30)
[2020-03-19] MEDS ORDERED: diphenhdrAMINE HCL 12.5 MG/5 ML UD PO ONE (21:00)
[2020-03-19] MEDS: ONDANSETRON HCL 4 MG/2 ML VIAL IV PRN (21:33)
[2020-03-19 21:51] VITALS: BP 151/73
[2020-03-20] MEDS ORDERED: INSULIN LANTUS (GLARGINE) 1 /0.01ml (100units/ml) SC ONE ×2 (01:30→07:00)
[2020-03-20] MEDS ORDERED: diphenhdrAMINE HCL 25 MG CAP PO ONE (01:45)
[2020-03-20] MEDS: MORPHINE SULF INJ 2 MG/ML SYRINGE 1ML IV PRN ×4 (01:56→21:00)
[2020-03-20] MEDS: ONDANSETRON HCL 4 MG/2 ML VIAL IV PRN (01:56)
[2020-03-20 05:54] VITALS: BP 142/64
[2020-03-20] MEDS: VANCOMYCIN 1GM/250ML 250 ML IV SCH ×2 (06:06→23:49)
[2020-03-20 06:08] LABS: Basophils # (auto) 0 10 ^3/uL (0-0.2); Basophils % (auto) 0.6 % (0.0-2.0); Eosinophils # (auto) 0.2 10 ^3/uL (0-0.8); Eosinophils % (auto) 3.4 % (0.0-7.0); Hematocrit 32.7 % (36.0-46.0); Hemoglobin 10.7 g/dL (12.2-16.2); Lymphocytes # (auto) 1.3 10 ^3/uL (0.4-5.4); Lymphocytes % (auto) 25.1 % (10.0-50.0); Mean Corpuscular Hemoglobin 29.9 pg (28.0-32.0); Mean Corpuscular Hgb Conc. 32.7 g/dL (32.0-36.0); Mean Corpuscular Volume 91.4 fL (80.0-100.0); Monocytes # (auto) 0.5 10 ^3/uL (0-1.3); Monocytes % (auto) 9.7 % (0.0-12.0); Neutrophils # (auto) 3.1 10 ^3/uL (1.6-8.6); Neutrophils % (auto) 61.2 % (37.0-80.0); Nucleated Red Blood Cells % 0.1 %; Platelet Count (auto) 257 10^3/uL (140-450); Red Blood Cells 3.58 10^6/uL (4.0-5.20); Red Cell Distribution Width 14.8 % (11.8-14.3)
[2020-03-20] MEDS: InsuLIN REG 1unit/0.01ml Soln (100units/ml) SC SCH ×4 (06:21→23:49)
[2020-03-20] MEDS: ACCU-CHEK COMFORT CURVE STRIP VI SCH ×4 (06:21→23:44)
[2020-03-20 06:25] LABS: Calcium 8.3 mg/dL (8.5-10.1); Potassium 5.1 mmol/L (3.5-5.1)
[2020-03-20 06:31] LABS: BUN/Creatinine Ratio 14.4
[2020-03-20 09:00] VITALS: BP 90/62
[2020-03-20] MEDS: COLCHICINE 0.6 MG CAP PO SCH (10:52)
[2020-03-20] MEDS: ENOXAPARIN SOD 40 MG/0.4 ML SYRINGE SC SCH (10:53)
[2020-03-20 13:00] VITALS: BP 122/60
[2020-03-20 16:57] VITALS: BP 118/72
[2020-03-20] MEDS: GABAPENTIN 300 MG CAP PO SCH (20:59)
[2020-03-20 22:00] VITALS: BP 140/77
[2020-03-20] MEDS: INSULIN LANTUS (GLARGINE) 1 /0.01ml (100units/ml) SC SCH (23:48)
[2020-03-21] MEDS: VANCOMYCIN 1GM/250ML 250 ML IV SCH ×2 (00:48→18:55)
[2020-03-21] MEDS: MORPHINE SULF INJ 2 MG/ML SYRINGE 1ML IV PRN ×5 (00:59→22:05)
[2020-03-21 05:00] VITALS: BP 145/80
[2020-03-21] MEDS: ACCU-CHEK COMFORT CURVE STRIP VI SCH ×4 (06:28→22:05)
[2020-03-21] MEDS: GABAPENTIN 300 MG CAP PO SCH ×3 (06:28→22:04)
[2020-03-21] MEDS: InsuLIN REG 1unit/0.01ml Soln (100units/ml) SC SCH ×4 (06:37→22:06)
[2020-03-21 09:00] VITALS: BP 154/80
[2020-03-21 09:17] LABS: Basophils # (auto) 0 10 ^3/uL (0-0.2); Basophils % (auto) 0.6 % (0.0-2.0); Eosinophils # (auto) 0.2 10 ^3/uL (0-0.8); Hematocrit 31.8 % (36.0-46.0); Hemoglobin 10.5 g/dL (12.2-16.2); Lymphocytes # (auto) 2.4 10 ^3/uL (0.4-5.4); Lymphocytes % (auto) 39.2 % (10.0-50.0); Mean Corpuscular Hgb Conc. 33.1 g/dL (32.0-36.0); Mean Corpuscular Volume 90.6 fL (80.0-100.0); Monocytes # (auto) 0.6 10 ^3/uL (0-1.3); Monocytes % (auto) 10.6 % (0.0-12.0); Neutrophils # (auto) 2.8 10 ^3/uL (1.6-8.6); Neutrophils % (auto) 46.6 % (37.0-80.0); Platelet Count (auto) 294 10^3/uL (140-450); Red Blood Cells 3.51 10^6/uL (4.0-5.20); Red Cell Distribution Width 14.4 % (11.8-14.3)
[2020-03-21 09:29] LABS: Potassium 3.8 mmol/L (3.5-5.1)
[2020-03-21 09:37] LABS: BUN/Creatinine Ratio 14.8; Calcium 8.8 mg/dL (8.5-10.1)
[2020-03-21] MEDS ORDERED: INSULIN LANTUS (GLARGINE) 1 /0.01ml (100units/ml) SC SCH (10:00)
[2020-03-21] MEDS: INSULIN LANTUS (GLARGINE) 1 /0.01ml (100units/ml) SC SCH ×2 (10:00→22:07)
[2020-03-21] MEDS: COLCHICINE 0.6 MG CAP PO SCH (10:13)
[2020-03-21] MEDS: ENOXAPARIN SOD 40 MG/0.4 ML SYRINGE SC SCH (10:13)
[2020-03-21 14:26] VITALS: BP 132/71
[2020-03-21 18:00] VITALS: BP 187/88
[2020-03-21 22:00] VITALS: BP 157/83
[2020-03-22 05:00] VITALS: BP 142/68
[2020-03-22] MEDS: GABAPENTIN 300 MG CAP PO SCH ×3 (06:00→22:05)
[2020-03-22] MEDS: InsuLIN REG 1unit/0.01ml Soln (100units/ml) SC SCH ×4 (06:12→22:06)
[2020-03-22] MEDS: ACCU-CHEK COMFORT CURVE STRIP VI SCH ×4 (06:12→22:05)
[2020-03-22 06:15] LABS: Basophils # (auto) 0 10 ^3/uL (0-0.2); Basophils % (auto) 0.5 % (0.0-2.0); Eosinophils # (auto) 0.2 10 ^3/uL (0-0.8); Eosinophils % (auto) 3.7 % (0.0-7.0); Hematocrit 29.1 % (36.0-46.0); Hemoglobin 9.7 g/dL (12.2-16.2); Lymphocytes # (auto) 1.7 10 ^3/uL (0.4-5.4); Lymphocytes % (auto) 34.8 % (10.0-50.0); Mean Corpuscular Hemoglobin 30.3 pg (28.0-32.0); Mean Corpuscular Hgb Conc. 33.2 g/dL (32.0-36.0); Mean Corpuscular Volume 91.2 fL (80.0-100.0); Monocytes # (auto) 0.6 10 ^3/uL (0-1.3); Monocytes % (auto) 11.7 % (0.0-12.0); Neutrophils # (auto) 2.4 10 ^3/uL (1.6-8.6); Neutrophils % (auto) 49.3 % (37.0-80.0); Nucleated Red Blood Cells % 0.1 %; Platelet Count (auto) 265 10^3/uL (140-450); Red Blood Cells 3.19 10^6/uL (4.0-5.20); Red Cell Distribution Width 14.3 % (11.8-14.3); White Blood Cell 4.9 10^3/uL (4.4-10.8)
[2020-03-22 06:43] LABS: Calcium 8.2 mg/dL (8.5-10.1)
[2020-03-22 06:46] LABS: BUN/Creatinine Ratio 20.4
[2020-03-22 07:57] LABS: INR 0.98 (0.9-1.15)
[2020-03-22 09:00] VITALS: BP 147/88
[2020-03-22] MEDS: MORPHINE SULF INJ 2 MG/ML SYRINGE 1ML IV PRN ×3 (09:52→23:26)
[2020-03-22] MEDS: COLCHICINE 0.6 MG CAP PO SCH (10:00)
[2020-03-22] MEDS: INSULIN LANTUS (GLARGINE) 1 /0.01ml (100units/ml) SC SCH ×2 (10:00→22:05)
[2020-03-22] MEDS ORDERED: ceFAZolin 1GM/50ML 100 ML IV ONE (12:24)
[2020-03-22] MEDS ORDERED: LIDOCAINE 1% (LOCAL ANESTH.) PF 5ml SDV ONE (13:09)
[2020-03-22] MEDS ORDERED: METOCLOPRAMIDE HCL 5MG/ml INJ 2ml VIAL ONE (13:12)
[2020-03-22] MEDS ORDERED: MIDAZOLAM HCL 1MG/1ML-2 ML VIAL ONE (13:12)
[2020-03-22] MEDS ORDERED: ROCURONIUM 10MG/ML 10ML VIAL IV ONE (13:13)
[2020-03-22] MEDS ORDERED: ETOMIDATE (2MG/ML) 20ML VIAL IV ONE (13:14)
[2020-03-22] MEDS ORDERED: fentaNYL CITRATE 100 MCG/2 ML VL ONE (13:25)
[2020-03-22] MEDS ORDERED: SODIUM CHLORIDE LOCK 10 ML ONE (13:35)
[2020-03-22] MEDS ORDERED: ePHEDrine SULFATE 50 MG/ML AMP ONE (13:35)
[2020-03-22] MEDS ORDERED: GLYCOPYRROLATE 0.2 MG/ML 1ML VIAL ONE (13:51)
[2020-03-22] MEDS ORDERED: NEOSTIGMINE 1 MG/ML INJ (10mg/10ML VIAL) ONE (13:51)
[2020-03-22] MEDS ORDERED: ONDANSETRON HCL 4 MG/2 ML VIAL IV PRN (14:00)
[2020-03-22] MEDS ORDERED: HYDROmorphone HCL 2 MG/ML VL IV PRN ×2 (14:00)
[2020-03-22] MEDS ORDERED: ACCU-CHEK COMFORT CURVE STRIP VI ONE (14:00)
[2020-03-22] MEDS ORDERED: NALOXONE HCL 0.4 MG/ML VIAL IV PRN (14:00)
[2020-03-22] MEDS ORDERED: hydrALAZINE HCL 20 MG/ML VL IV PRN (14:00)
[2020-03-22] MEDS: VANCOMYCIN 1GM/250ML 250 ML IV SCH (18:46)
[2020-03-22] MEDS ORDERED: LIDOCAINE 1% (LOCAL ANESTH.) PF 5ml SDV ID ONE (20:45)
[2020-03-22] MEDS ORDERED: cloNIDine HCL 0.1 MG TAB PO PRN (21:45)
[2020-03-22 22:00] VITALS: BP 149/77
[2020-03-22] MEDS: SODIUM CHLOR 0.9% PF (SALINE LOCK) 10ML VIAL/SYR IV SCH (22:04)
[2020-03-22] MEDS: ATORVASTATIN 20 MG TAB PO SCH (22:04)
[2020-03-22] MEDS: METOPROLOL TARTRATE 50 MG TAB PO SCH (22:06)
[2020-03-23] MEDS: MORPHINE SULF INJ 2 MG/ML SYRINGE 1ML IV PRN ×3 (04:02→22:33)
[2020-03-23 04:54] VITALS: BP 121/70
[2020-03-23] MEDS: GABAPENTIN 300 MG CAP PO SCH ×3 (06:01→21:38)
[2020-03-23] MEDS: InsuLIN REG 1unit/0.01ml Soln (100units/ml) SC SCH ×4 (06:02→21:38)
[2020-03-23] MEDS: ACCU-CHEK COMFORT CURVE STRIP VI SCH ×4 (06:02→21:38)
[2020-03-23] MEDS: SODIUM CHLOR 0.9% PF (SALINE LOCK) 10ML VIAL/SYR IV SCH ×2 (08:56→21:37)
[2020-03-23] MEDS: FUROSEMIDE 20 MG TAB PO SCH (08:57)
[2020-03-23] MEDS: COLCHICINE 0.6 MG CAP PO SCH (08:57)
[2020-03-23] MEDS: amLODIPine BESYLATE 5 MG TAB PO SCH (08:58)
[2020-03-23] MEDS: METOPROLOL TARTRATE 50 MG TAB PO SCH ×2 (08:58→21:38)
[2020-03-23] MEDS: ONDANSETRON HCL 4 MG/2 ML VIAL IV PRN ×2 (08:59→16:59)
[2020-03-23 09:00] VITALS: BP 149/79
[2020-03-23] MEDS: INSULIN LANTUS (GLARGINE) 1 /0.01ml (100units/ml) SC SCH ×2 (10:00→21:39)
[2020-03-23] MEDS: VANCOMYCIN 1GM/250ML 250 ML IV SCH (13:18)
[2020-03-23 16:54] VITALS: BP 103/62
[2020-03-23] MEDS: ATORVASTATIN 20 MG TAB PO SCH (21:37)
[2020-03-23 22:00] VITALS: BP 107/60
[2020-03-24] MEDS: MORPHINE SULF INJ 2 MG/ML SYRINGE 1ML IV PRN ×2 (02:31→14:29)
[2020-03-24 04:55] VITALS: BP 135/71
[2020-03-24] MEDS: InsuLIN REG 1unit/0.01ml Soln (100units/ml) SC SCH ×2 (06:27→11:30)
[2020-03-24] MEDS: ACCU-CHEK COMFORT CURVE STRIP VI SCH ×2 (06:34→11:57)
[2020-03-24] MEDS: GABAPENTIN 300 MG CAP PO SCH ×2 (06:34→14:28)
[2020-03-24] MEDS: VANCOMYCIN 1GM/250ML 250 ML IV SCH (06:35)
[2020-03-24 09:00] VITALS: BP 127/80
[2020-03-24] MEDS: SODIUM CHLOR 0.9% PF (SALINE LOCK) 10ML VIAL/SYR IV SCH (09:44)
[2020-03-24] MEDS: COLCHICINE 0.6 MG CAP PO SCH (09:44)
[2020-03-24] MEDS: FUROSEMIDE 20 MG TAB PO SCH (09:45)
[2020-03-24] MEDS: METOPROLOL TARTRATE 50 MG TAB PO SCH (09:45)
[2020-03-24] MEDS: amLODIPine BESYLATE 5 MG TAB PO SCH (09:46)
[2020-03-24] MEDS: INSULIN LANTUS (GLARGINE) 1 /0.01ml (100units/ml) SC SCH (10:00)
[2020-03-24 13:00] VITALS: BP 124/77
[2020-03-24 14:58] VITALS: BP 123/62
== END 2020-03-24 16:00 | disposition home health service (06) | DRG 316 ==
LOC: ER 21:23 → OVERFLOW 21:24 → WEST WING 03-18 09:04
PROVIDERS: ADMIT Hospitalist; ATTEND Hospitalist
PROC: 0R9X0ZZ Drainage of Left Finger Phalangeal Joint, Open Approach (ICD-10-PCS; 2020-03-22)
PROC: 0J9K0ZX Drainage of Left Hand Subcutaneous Tissue and Fascia, Open Approach, Diagnostic (ICD-10-PCS; 2020-03-22)
PROC: 02HV33Z Insertion of Infusion Device into Superior Vena Cava, Percutaneous Approach (ICD-10-PCS; 2020-03-22)
PROC: 0JBK0ZZ Excision of Left Hand Subcutaneous Tissue and Fascia, Open Approach (ICD-10-PCS; principal; 2020-03-22 13:05)
DX: M00.9 Pyogenic arthritis, unspecified (principal); E44.0 Moderate protein-calorie malnutrition; E11.65 Type 2 diabetes mellitus with hyperglycemia; E66.01 Morbid (severe) obesity due to excess calories; E11.69 Type 2 diabetes mellitus with other specified complication; M86.9 Osteomyelitis, unspecified; E11.22 Type 2 diabetes mellitus with diabetic chronic kidney disease; N18.30 Chronic kidney disease, stage 3 unspecified; L03.012 Cellulitis of left finger; M10.9 Gout, unspecified; Z20.828 Contact with and (suspected) exposure to other viral communicable diseases; F17.210 Nicotine dependence, cigarettes, uncomplicated; F41.9 Anxiety disorder, unspecified; E78.5 Hyperlipidemia, unspecified; I12.9 Hypertensive chronic kidney disease with stage 1 through stage 4 chronic kidney disease, or unspecified chronic kidney disease; B95.62 Methicillin resistant Staphylococcus aureus infection as the cause of diseases classified elsewhere; L02.91 Cutaneous abscess, unspecified; Z91.041 Radiographic dye allergy status; Z91.013 Allergy to seafood; Z88.8 Allergy status to other drugs, medicaments and biological substances; Z79.899 Other long term (current) drug therapy; Z79.891 Long term (current) use of opiate analgesic; Z79.01 Long term (current) use of anticoagulants; Z79.4 Long term (current) use of insulin; Z98.891 History of uterine scar from previous surgery; Z90.710 Acquired absence of both cervix and uterus; Z68.30 Body mass index [BMI] 30.0-30.9, adult; Z80.9 Family history of malignant neoplasm, unspecified; Z83.3 Family history of diabetes mellitus; Z82.49 Family history of ischemic heart disease and other diseases of the circulatory system; Z82.5 Family history of asthma and other chronic lower respiratory diseases; Z80.7 Family history of other malignant neoplasms of lymphoid, hematopoietic and related tissues; Z80.41 Family history of malignant neoplasm of ovary
CPT/HCPCS: 36415; 36569; 71045; 73200; 80048; 80053; 80202; 81001; 82010; 82565; 82962; 83036; 83605; 84550; 85025; 85610; 86592; 86703; 87040; 87070; 87075; 87076; 87077; 87081; 87186; 87205; 89060; 93005; 93306; 93925; G0378; J0690; J0696; J1815; J1956; J2250; J2405; J3490

== ENCOUNTER 2020-04-05 16:05 | Emergency (ER) | payer MEDICAID ==
[~2020-04-05] VITALS: Ht 157.5 cm; Wt 68.9 kg
[2020-04-05] MEDS ORDERED: InsuLIN REG 1unit/0.01ml Soln (100units/ml) SC ONE (22:15)
[2020-04-05] MEDS ORDERED: cefTRIAXone 1GM/50ML D5W 50 ML IV ONE (23:30)
[2020-04-05] MEDS ORDERED: SODIUM CHLORIDE 0.9% 1,000 ML IV ONE (23:30)
[2020-04-06 00:03] LABS: Basophils # (auto) 0 10 ^3/uL (0-0.2); Basophils % (auto) 0.5 % (0.0-2.0); Eosinophils # (auto) 0.2 10 ^3/uL (0-0.8); Eosinophils % (auto) 2.7 % (0.0-7.0); Hematocrit 34.1 % (36.0-46.0); Hemoglobin 11.3 g/dL (12.2-16.2); Lymphocytes % (auto) 39.7 % (10.0-50.0); Mean Corpuscular Hgb Conc. 33.1 g/dL (32.0-36.0); Mean Corpuscular Volume 90.8 fL (80.0-100.0); Monocytes # (auto) 0.5 10 ^3/uL (0-1.3); Monocytes % (auto) 6.3 % (0.0-12.0); Neutrophils # (auto) 3.8 10 ^3/uL (1.6-8.6); Neutrophils % (auto) 50.8 % (37.0-80.0); Nucleated Red Blood Cells % 0.1 %; Platelet Count (auto) 268 10^3/uL (140-450); Red Blood Cells 3.75 10^6/uL (4.0-5.20); Red Cell Distribution Width 14.5 % (11.8-14.3); White Blood Cell 7.5 10^3/uL (4.4-10.8)
[2020-04-06 00:20] LABS: INR 1.03 (0.9-1.15)
[2020-04-06 00:28] LABS: Albumin 3.1 g/dL (3.4-5.0); BUN/Creatinine Ratio 17.4; Calcium 9.6 mg/dL (8.5-10.1); Potassium 3.9 mmol/L (3.5-5.1)
[2020-04-06 00:29] LABS: Lactic Acid w/Reflex 2.7 mmol/L (0.4-2.0)
[2020-04-06] MEDS ORDERED: HYDROcodone-ACET 10/325MG TAB PO ONE (00:30)
[2020-04-06 00:31] LABS: Bilirubin, Total 0.4 mg/dL (0.2-1.0)
[2020-04-06 00:55] LABS: CRP High Sensitivity 0.81 mg/dL (< 0.3)
[2020-04-06] MEDS ORDERED: InsuLIN REG 1unit/0.01ml Soln (100units/ml) IV ONE (01:15)
[2020-04-06] MEDS ORDERED: MORPHINE SULF INJ 2 MG/ML SYRINGE 1ML IV ONE ×3 (01:15→11:30)
[2020-04-06] MEDS ORDERED: diphenhdrAMINE HCL 50 MG/1 ML VL IV ONE (02:15)
[2020-04-06] MEDS ORDERED: DEXTROSE 50% SYRINGE 50 ML IV ONE (02:24)
[2020-04-06] MEDS ORDERED: DEXTROSE (50%) 50ML SYRG IV ONE (02:45)
[2020-04-06] MEDS ORDERED: DEXTROSE 10% 1,000 ML IV ONE (03:15)
[2020-04-06 11:47] VITALS: BP 174/84
== END 2020-04-06 12:06 | disposition short-term general hospital (02) ==
LOC: ER 16:05
DX: S62.625A Displaced fracture of middle phalanx of left ring finger, initial encounter for closed fracture (principal); M86.8X4 Other osteomyelitis, hand; E11.65 Type 2 diabetes mellitus with hyperglycemia; L03.012 Cellulitis of left finger; J45.909 Unspecified asthma, uncomplicated; E78.5 Hyperlipidemia, unspecified; I10 Essential (primary) hypertension; M10.9 Gout, unspecified; Z91.041 Radiographic dye allergy status; Z91.013 Allergy to seafood; Z88.8 Allergy status to other drugs, medicaments and biological substances; X58.XXXA Exposure to other specified factors, initial encounter; Y93.89 Activity, other specified; Y92.89 Other specified places as the place of occurrence of the external cause; Y99.8 Other external cause status
CPT/HCPCS: 36415; 73200; 80053; 82962; 83605; 85025; 85610; 85652; 86141; 87040; 87205; 96365; 96372; 96375; 99285; J0696; J1200; J1815; J2270; J7042